=== PATIENT | male | born 1950 | race Caucasian/White ===

== ENCOUNTER 2019-06-24 11:42 | Outpatient (CLI) | payer MEDICARE, SELFPAY ==
--- NOTE | ~2019-06-24 | MR_ITS ---
EXAMINATION: MR brain/brain stem wo con EXAM DATE: 06/24/2019 12:31 INDICATION: Transient ischemic attack. Speech disturbance. Dizziness. TECHNIQUE: Magnetic resonance imaging (MRI) of the brain/brain stem obtained without contrast. Sagitt al T1, axial diffusion, gradient echo (T2*), T1, T2, FLAIR sequences obtained. There is no prior st udy for comparison. Correlation was made with head CT 12/20/2016. FINDINGS: There are no areas of restricted diffusion to suggest acute infarction. There is no acute hemorrhage seen on the T2*, a hemosiderin sensitive sequence. No intraparenchymal brain mass lesion. There is mild periventricular and subcortical T2/FLAIR signal hyperintensity, nonspecific but probab ly related to small vessel ischemic disease (microangiopathy). There is mild prominence of the sulc i and ventricles related to cerebral atrophy. There are no extra-axial collections. Flow voids are seen in the cerebral arteries on the T2-weighted sequences consistent with their expected patency. The orbits are unremarkable. Soft tissue is unremarkable. IMPRESSION: 1. No acute intracranial findings. 2. Chronic age related findings. Reviewed, dictated and finalized at location A.
== END 2019-06-24 11:43 | disposition home or self-care (01) ==
PROVIDERS: PCP Family Medicine; Visit Provider Family Medicine
DX: G45.9 Transient cerebral ischemic attack, unspecified (principal)
CPT/HCPCS: 70551

== ENCOUNTER 2019-07-01 13:50 | Outpatient (CLI) | payer MEDICARE, SELFPAY ==
--- NOTE | ~2019-07-01 | XR_ITS ---
EXAMINATION: XR wrist RT min 3V DATE: 07/01/2019 14:21 INDICATION: Right wrist pain. Fall. TECHNIQUE: 4 views of right wrist were obtained. COMPARISON: None. FINDINGS: Bone alignment is normal. No fracture. There is mild osteoarthritis of first carpometacarpa l joint, second and third metacarpophalangeal joints, and some of the interphalangeal joints. IMPRESSION: 1. Mild polyarticular osteoarthritis. Reviewed, dictated and finalized at location A.
== END 2019-07-01 13:51 | disposition home or self-care (01) ==
PROVIDERS: PCP Family Medicine; Visit Provider Family Medicine
DX: M25.531 Pain in right wrist (principal); M19.031 Primary osteoarthritis, right wrist
CPT/HCPCS: 73110

== ENCOUNTER 2019-08-09 13:48 | Outpatient (CLI) | payer MEDICARE, SELFPAY ==
--- NOTE | ~2019-08-09 | US_ITS ---
EXAMINATION: US carotid duplex BI DATE: 08/09/2019 14:23 INDICATION: Dysarthria. Transient ischemic attack. TECHNIQUE: Grayscale, color Doppler, and pulsed Doppler images of the cervical carotid arteries were obtained. The degree of vessel stenosis is placed in one of the following categories: normal, <50%, 5 0-69%, >=70% but less than near-occlusion, near-occlusion, or total occlusion. Note that percent sten osis relative to normal distal artery lumen diameter is indirectly measured from velocity measurement s as described by Bernabe, et al. Radiology 2003; 229:340-346. COMPARISON: None. FINDINGS: RIGHT: The right common carotid artery (CCA) peak systolic velocity (PSV) is 70 cm/s. The right internal car otid artery (ICA) PSV is 86 cm/s. The right ICA end-diastolic velocity (EDV) is 22 cm/s. The right IC A/CCA PSV ratio is 1.2. Grayscale and color Doppler images yield an estimate of <50% diameter reducti on from plaque in the ICA. There is antegrade flow in the right vertebral artery. LEFT: The left CCA PSV is 87 cm/s. The left ICA PSV is 78 cm/s. The left ICA EDV is 19 cm/s. The left ICA/C CA PSV ratio is 0.9. Grayscale and color Doppler images yield an estimate of <50% diameter reduction from plaque in the ICA. There is antegrade flow in the left vertebral artery. IMPRESSION: 1. <50% stenosis in the right internal carotid artery. 2. <50% stenosis in the left internal carotid artery. Reviewed, dictated and finalized at location A.
== END 2019-08-09 13:49 | disposition home or self-care (01) ==
LOC: ANHIMG 13:48
PROVIDERS: PCP Family Medicine; Visit Provider Internal Medicine Cardiovascular Disease
DX: I65.23 Occlusion and stenosis of bilateral carotid arteries (principal); I25.10 Atherosclerotic heart disease of native coronary artery without angina pectoris; E11.69 Type 2 diabetes mellitus with other specified complication; E78.5 Hyperlipidemia, unspecified; R09.89 Other specified symptoms and signs involving the circulatory and respiratory systems
CPT/HCPCS: 93880

== ENCOUNTER 2020-03-10 10:29 | Outpatient (CLI) | payer MEDICARE, SELFPAY ==
[2020-03-10 11:19] LABS: Anion Gap 5 mmol/L (8-16); Blood Urea Nitrogen 19 mg/dL (9-20); Calcium 9.8 mg/dL (8.4-10.2); Carbon Dioxide 32 mmol/L (22-30); Chloride 100 mmol/L (98-107); Estimated Glomerular Filt Rate > 60; Glucose 105 mg/dL (75-110); Potassium 4.2 mmol/L (3.4-5.0); Sodium 137 mmol/L (137-145)
== END 2020-03-10 10:30 | disposition home or self-care (01) ==
LOC: ANHSURGERY 10:32
PROVIDERS: Anesthesiology; PCP Internal Medicine; Visit Provider Otolaryngology
DX: Z01.818 Encounter for other preprocedural examination (principal); Z79.899 Other long term (current) drug therapy
CPT/HCPCS: 36415; 80048

== ENCOUNTER 2020-03-14 01:42 | Outpatient (CLI) | payer MEDICARE, SELFPAY ==
[2020-03-15 00:20] LABS: SARS-CoV-2 RNA PCR Negative
== END 2020-03-14 01:43 | disposition home or self-care (01) ==
LOC: ANHCOVIDDT 01:42
PROVIDERS: Family Provider Family Medicine; PCP Internal Medicine; Visit Provider Otolaryngology
DX: Z01.812 Encounter for preprocedural laboratory examination (principal); Z20.822 Contact with and (suspected) exposure to COVID-19
CPT/HCPCS: C9803; U0003; U0005

== ENCOUNTER 2020-03-17 00:18 | Day surgery (SDC) | payer MEDICARE, SELFPAY ==
[2020-03-06 13:28] VITALS: BMI 36.0
--- NOTE | 2020-03-16 09:07 | WPDANESEPPF ---
Anes - Initial Pre Proc Eval Procedure: Operation Date: 03/17/20 15:00 Proposed Procedures p Microlaryngoscopy With Biopsy - Reinaldo Delacruz MD Date/Time: 03/16/20 09:07 Surgeon: Reinaldo Delacruz MD Pre Op Diagnosis: Chronic Laryngitis Patient Data Age: 69 Gender: M Height: 1.83 m Weight: 120.45 kg Allergies Allergy/AdvReac Type Severity Reaction Status Date / Time iohexol [From Omnipaque] Allergy Severe Anaphylactic Verified 03/06/20 13:18 Shock lisinopril Allergy Severe Swelling Verified 03/17/20 12:23 of Lip/Tongue/Throat clotrimazole AdvReac Unknown Rash Verified 03/17/20 12:23 niacin AdvReac Unknown Rash Verified 03/17/20 12:23 Home Medications Medication Instructions Recorded Confirmed Type Fiber Supplement 1 cap PO DAILY 01/06/19 03/17/20 History Men's Multivitamin 1 tablet PO DAILY 01/06/19 03/17/20 History cetirizine-pseudoephedrine 1 tablet PO BID 01/06/19 03/17/20 History [Zyrtec-D] coQ10 (ubiquinol) 100 mg PO DAILY 01/06/19 03/17/20 History melatonin 3 mg PO HS PRN 01/06/19 03/17/20 History acetaminophen [Tylenol Extra 1,000 mg PO TID 01/16/19 03/17/20 History Strength] docusate sodium [Stool Softener] 100 mg PO DAILY 01/16/19 03/17/20 History fluticasone 250 mcg-salmeterol 50 1 inh INHALATION BID 02/07/20 03/17/20 History mcg/dose blistr powdr for inhalation gabapentin 800 mg tablet 800 mg PO TID 02/07/20 03/17/20 History isosorbide mononitrate 30 mg 30 mg PO DAILY 02/07/20 03/17/20 History tablet,extended release 24 hr losartan 50 mg tablet 50 mg PO DAILY 02/07/20 03/17/20 History omeprazole 20 mg capsule,delayed 40 mg PO HS cap 02/07/20 03/17/20 History release oxybutynin chloride 10 mg 10 mg PO DAILY 02/07/20 03/17/20 History tablet,extended release 24 hr amlodipine 10 mg tablet 10 mg PO DAILY #90 tablet 02/24/20 03/17/20 Rx hydrochlorothiazide 25 mg tablet 25 mg PO DAILY #90 tablet 02/24/20 03/17/20 Rx metoprolol tartrate 50 mg tablet 50 mg PO BID #180 tablet 02/24/20 03/17/20 Rx trazodone 100 mg tablet 100 mg PO HS #90 tablet 02/24/20 03/17/20 Rx albuterol sulfate [ProAir HFA] 2 puff INHALATION PRN PRN 03/06/20 03/17/20 History aspirin [Aspirin Low Dose] 81 mg PO DAILY 03/06/20 03/17/20 History atorvastatin 40 mg PO DAILY 03/06/20 03/17/20 History Patient hx anesthesia problems: none Family hx anesthesia problems: none PMFSH Past Medical History Medical History Anemia Anxiety Arthritis Asthma BPH (benign prostatic hyperplasia) Bronchitis CAD (coronary artery disease) Cataract COPD (chronic obstructive pulmonary disease) Depression Diverticulitis Fracture vertebrae GERD (gastroesophageal reflux disease) Glaucoma H/O gastroesophageal reflux (GERD) Head and neck cancer History of throat cancer History of tobacco abuse Hyperlipidemia Hypertension 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 Obstructive sleep apnea Osteoarthritis Pneumonia Seasonal allergies Shingles Sleep apnea TIA (transient ischemic attack) Ulcer Surgical History Surgical History H/O blepharoplasty bilateral H/O Spinal surgery neck surgery with cage, lumbar dissection History of biopsy throat History of cataract surgery History of head, eyes, ears, nose, and throat (HEENT) surgery vocal cord surgery History of orthopedic surgery bilateral rotator cuff repair, sacroiliac joint surgery Hx of vasectomy Family History Family History Father Hypertension Family history of chronic obstructive pulmonary disease Family history of coronary artery disease Mother Hypertension Family history of malignant neoplasm of breast in first degree relative Family history of congestive heart failure Sibling Acute myocardial infarction Family history of c
[2020-03-17] VITALS (8 sets, daily range): BP systolic 133–155; BP diastolic 80–92; PULSE 61–71; RESP 13–20; TEMP 36.3–36.7; O2SAT 93–99
--- NOTE | 2020-03-17 06:07 | PM.HPGS ---
History of Present Illness History of Present Illness Consent: Risks, benefits, and alternatives have been discussed and questions answered. Patient agrees to proceed with procedure. 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 Review of Systems Review of Systems: All systems reviewed & are unremarkable except as noted in HPI and below PMFSH Past Medical History Medical History Anemia Anxiety Arthritis Asthma BPH (benign prostatic hyperplasia) Bronchitis CAD (coronary artery disease) Cataract COPD (chronic obstructive pulmonary disease) Depression Diverticulitis Fracture vertebrae GERD (gastroesophageal reflux disease) Glaucoma H/O gastroesophageal reflux (GERD) Head and neck cancer History of throat cancer History of tobacco abuse Hyperlipidemia Hypertension 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 Obstructive sleep apnea Osteoarthritis Pneumonia Seasonal allergies Shingles Sleep apnea TIA (transient ischemic attack) Ulcer Surgical History Surgical History H/O blepharoplasty bilateral H/O Spinal surgery neck surgery with cage, lumbar dissection History of biopsy throat History of cataract surgery History of head, eyes, ears, nose, and throat (HEENT) surgery vocal cord surgery History of orthopedic surgery bilateral rotator cuff repair, sacroiliac joint surgery Hx of vasectomy Family History Family History Father Hypertension Family history of chronic obstructive pulmonary disease Family history of coronary artery disease Mother Hypertension Family history of malignant neoplasm of breast in first degree relative Family history of congestive heart failure Sibling Acute myocardial infarction Family history of cardiac disorder Family history of coronary artery disease Grandparent Cerebrovascular accident Parkinsons Social History Social History Smoking packs per day: 3 Smoking cigarettes per day: 60.0 Years smoked: 20 Smoking pack-years: 60.00 Smoking status: Former smoker Second hand tobacco smoke exposure: No Smoking end date: 02/20/83 Additional smoking assessment comments: QUIT 1983 Alcohol intake: current Drinks per week: 21 Substance use: current Substance use type: does not use and marijuana Other substance usage details: 5MG GUMMIES DAILY Living arrangements: with family Gender identity (if verbalized by the patient): Male Spiritual care concerns: No Meds Home Medications and Allergies Home Medications Medication Instructions Recorded Confirmed Type Fiber Supplement 1 cap PO DAILY 01/06/19 03/06/20 History Men's Multivitamin 1 tablet PO DAILY 01/06/19 03/06/20 History cetirizine-pseudoephedrine 1 tablet PO BID 01/06/19 03/06/20 History [Zyrtec-D] coQ10 (ubiquinol) 100 mg PO DAILY 01/06/19 03/06/20 History melatonin 3 mg PO HS PRN 01/06/19 03/06/20 History acetaminophen [Tylenol Extra 1,000 mg PO TID 01/16/19 03/06/20 History Strength] docusate sodium [Stool Softener] 100 mg PO DAILY 01/16/19 03/06/20 History fluticasone 250 mcg-salmeterol 50 1 inh INHALATION BID 02/07/20 03/06/20 History mcg/dose blistr powdr for inhalation gabapentin 800 mg tablet 800 mg PO TID 02/07/20 03/06/20 History isosorbide mononitrate 30 mg 30 mg PO DAILY 02/07/20 03/06/20 History tablet,extended release 24 hr losartan 50 mg tablet 50 mg PO DAILY 02/07/20 03/06/20 History omeprazole 20 mg capsule,delayed 40 mg PO HS cap 02/07/20 03/06/20 History release oxybutynin chloride 10 mg 10 mg PO DAILY 02/07/20 03/06/20 History
--- NOTE | 2020-03-17 06:08 | WPDHPUPDATE1 ---
History and Physical Update Update Date/Time: 03/17/20 06:08 History and Physical has been reviewed, including an updated exam of the patient. There are NO changes in the patient's condition. Risks, benefits, and alternatives have been discussed and questions answered. Patient agrees to proceed with procedure.
[2020-03-17] MEDS: LACTATED RINGERS 1,000 ML 30 ML IV CONT ×2 (12:25→13:17)
--- NOTE | 2020-03-17 13:19 | PM.PROC ---
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
== END 2020-03-17 14:51 | disposition home or self-care (01) ==
PROVIDERS: Family Provider Family Medicine; PCP Internal Medicine; Visit Provider Otolaryngology
PROC: 0CJS8ZZ Inspection of Larynx, Via Natural or Artificial Opening Endoscopic (ICD-10-PCS; CPT 31536; principal; 2020-03-17 15:00)
DX: J38.3 Other diseases of vocal cords (principal); J37.0 Chronic laryngitis; I10 Essential (primary) hypertension; E78.5 Hyperlipidemia, unspecified; J44.9 Chronic obstructive pulmonary disease, unspecified; I25.10 Atherosclerotic heart disease of native coronary artery without angina pectoris; D64.9 Anemia, unspecified; F41.8 Other specified anxiety disorders; N40.0 Benign prostatic hyperplasia without lower urinary tract symptoms; K21.9 Gastro-esophageal reflux disease without esophagitis; H40.9 Unspecified glaucoma; G47.33 Obstructive sleep apnea (adult) (pediatric); Z86.73 Personal history of transient ischemic attack (TIA), and cerebral infarction without residual deficits; M19.90 Unspecified osteoarthritis, unspecified site; Z85.819 Personal history of malignant neoplasm of unspecified site of lip, oral cavity, and pharynx; Z87.891 Personal history of nicotine dependence; F12.90 Cannabis use, unspecified, uncomplicated; E66.9 Obesity, unspecified; Z68.35 Body mass index [BMI] 35.0-35.9, adult
CPT/HCPCS: 31536; 88305; A9270; J0330; J1100; J2405; J2704; J3010; J7120

== ENCOUNTER 2020-12-30 09:45 | Outpatient (CLI) | payer MEDICARE, SELFPAY ==
--- NOTE | 2021-01-20 11:12 | WPDSLEEPSTUD ---
Sleep Study Date of Study: 12/30/20 <Ivy Mascorro, DO - Last Filed: 01/20/21 12:08> Ordering Provider: Mathieu Peña APRN <Ivy Mascorro, DO - Last Filed: 01/20/21 12:08> Interpreting Physician: Ivy Mascorro DO <Ivy Mascorro DO - Last Filed: 01/20/21 12:08> Sleep Study Type: CPAP Titration <Ivy Mascorro DO - Last Filed: 01/20/21 12:08> Height: 1.83 m <Ivy Mascorro DO - Last Filed: 01/20/21 12:08> Weight: 113.398 kg <Ivy Mascorro DO - Last Filed: 01/20/21 12:08> Body Mass Index: 33.9 <Ivy Mascorro DO - Last Filed: 01/20/21 12:08> Neck Circumference (inches): 19 <Ivy Mascorro DO - Last Filed: 01/20/21 12:08> [place]: 6 <Ivy Mascorro DO - Last Filed: 01/20/21 12:08> Reason for Sleep Study Unrefreshing sleep and daytime hypersomnia despite being compliant with PAP Therapy <Ivy Mascorro, DO - Last Filed: 01/20/21 12:08> Sleep History The patient is a 70 y/o male withAsthma, COPD a, coronary artery disease, anxiety/ depression, GERD, hypertension, hyperlipidemia, history of TIA, and ARINA on PAP that had a Pap titration ordered by the pulmonology group due to unrefreshing sleep and daytime hypersomnia despite being compliant with PAP therapy. The patient is currently on auto PAP 8-18 cm H2O with an average daily use of 9 hours and 21 minutes. The residual AHI is 3.6. The leak is minimal. the patient is at a pressure of 11.4 cm H2O 90% of the time. The patient denies awakening from sleep short of breath. He denies awakening at night with heartburn, belching or cough. He denies snoring loud enough that others complain. He denies having trouble sleeping when he has a cold. He denies waking up gasping for air throughout the night. He denies sweating excessively at night. He denies heart palpitations or irregular heartbeats during the night. He frequently falls asleep during the day. The patient does not drive. The patient denies sleep paralysis, cataplexy and hypnagogic / hypnopompic hallucinations. The patient denies having nightmares. He rarely has thoughts racing through his mind. He denies feeling sad, depressed or anxious. He denies noticing parts of his body jerk. He denies kicking throughout the night. He denies experiencing crawling and aching feelings in his legs. He occasionally has leg pain during the night. He denies grinding his teeth during sleep and awakening with jaw pain in the morning. He is constantly bothered by pain during the day and is occasionally awakened by pain during the night. He occasionally wakes up feeling stiff in the morning. He goes to bed at 10:00 p.m. on both weekdays and weekends. It takes him 10 minutes to fall asleep. He wakes up twice per night. When he awakens, he will just stay in bed until E falls asleep. He wakes up at 8:00 a.m. on both weekdays and weekends. He typically gets 10 hours of sleep per night. He will stay in bed for 5 minutes after awakening in the morning. He currently lives with his . He does not consume any caffeinated beverages within 2 hours of bedtime. He does not engage in physical exercise before bedtime. He will watch television before falling asleep. He does not take naps in the afternoon or the evening. He quit smoking 30 years ago. He drinks 4 cups of coffee in the morning every day. He drinks 2 alcoholic beverages per week. He denies recreational drug use. <Ivy Mascorro DO - Last Filed: 01/20/21 12:08> [facility] Past Medical History Medical History: Medical History Anemia Anxiety Arthritis Asthma BPH (benign prostatic hyperplasia) Bronchitis CAD (coronary artery disease) Cataract COPD (chronic obstructive pulmonary disease) Depression Diverticulitis Fracture vertebrae GERD (gastroesophageal reflux disease) Glaucoma H/O gastroes
[2021-01-20 11:17] VITALS: BMI 33.9
== END 2020-12-31 08:25 | disposition home or self-care (01) ==
LOC: ANHCSM 09:46
PROVIDERS: PCP Physician Assistant; Visit Provider Nurse Practitioner Family
DX: G47.33 Obstructive sleep apnea (adult) (pediatric) (principal)
CPT/HCPCS: 95811

== ENCOUNTER 2022-07-23 22:32 | Inpatient (IN) | payer MEDICARE, SELFPAY ==
--- NOTE | ~2022-07-23 | MR_ITS ---
MRI of the cervical spine Clinical History: Dizziness, weakness Technique: Axial T2-weighted and gradient images, and sagittal T1-weighted, T2-weighted, and STIR marissa ges were acquired. Findings: There is no fracture or subluxation of the cervical spine. There is anterior fusion from C6 to C7, with associated interbody fusion device. No suspicious bone marrow signal abnormality seen. At C2-C3, there is mild degenerative disc narrowing. No disc bulge or herniation. Probable minimal le ft neural foraminal narrowing. Right neural foramen preserved. There is mild facet arthropathy. At C3-C4, there is moderate to advanced degenerative disc narrowing. There is minimal disc osteophyte complex. There is no spinal canal stenosis or cord compression. There is mild facet arthropathy, lef t worse than right, with mild bilateral neural foraminal narrowing, left worse than right. At C4-C5, there is no disc bulge or herniation. No spinal canal stenosis, cord compression, or defini te neural foraminal narrowing. At C5-C6, there is advanced degenerative disc narrowing with minimal disc bulge. There is no spinal c anal stenosis or cord compression. Probable mild left neural foraminal narrowing. Right neural forame n preserved. At C6-C7, there is no disc bulge or herniation. No spinal canal stenosis or cord compression. There i s probable preservation of the bilateral neural foramina. No abnormal signal seen in the spinal cord. Paravertebral soft tissues are unremarkable. Impression: Anterior fusion at C6-C7. Mild degenerative spondylitic changes, as above. Reviewed, dictated and finalized at [facility]. Impression: Anterior fusion at C6-C7. Mild degenerative spondylitic changes, as above.
--- NOTE | ~2022-07-23 | XR_ITS ---
XR chest 1V portable DATE: 07/24/2022 08:58 INDICATION: Shortness of breath TECHNIQUE: Portable upright AP view on 07/2022 at 0848 hours COMPARISON: 12/20/2016 portable AP chest at 0816 hours FINDINGS: There is chronic discoid atelectasis or scarring at the lung bases with little interval marybel nge since 12/20/2016. The lungs otherwise are clear. Heart size appears within normal range. There is aortic calcification and mild unfolding. No hilar or mediastinal enlargement. There is old pulmonary granulomatous disease with calcified left hilar and aortopulmonary window node s, calcified pulmonary granuloma. No pleural effusion or pulmonary vascular congestion or pneumothora x. IMPRESSION: Chronic mild discoid atelectasis and/or scarring at the lung bases Reviewed, dictated and finalized at location A.
--- NOTE | ~2022-07-23 | MR_ITS ---
EXAMINATION: MRA brain wo con DATE: 07/25/2022 13:24 INDICATION: Dizziness. Transient ischemic attack. TECHNIQUE: Magnetic resonance angiography (MRA) of the brain was performed without intravenous contra st with T1-weighted SPGR by the 3D [id number] technique. Maximum intensity projection 3D-reconstr uctions were obtained. COMPARISON: Brain MRI 07/24/2022 FINDINGS: Right vertebral artery is dominant. There is no significant stenosis of basilar artery or the posteri or cerebral arteries. There is no significant stenosis of the intracranial internal carotid arteries or anterior or middle cerebral arteries. Right A1 anterior cerebral artery segment is small, a normal variant. Anterior communicating artery is normal. Left posterior communicating artery is normal. A r ight posterior communicating artery is not identified. There is no aneurysm. IMPRESSION: 1. No aneurysm or significant intracranial arterial stenosis. Reviewed, dictated and finalized at location A.
--- NOTE | ~2022-07-23 | US_ITS ---
Procedure: Duplex Doppler examination of the bilateral carotids. Indication: Dizziness Technique: Real time, color-flow and pulse wave Doppler examination of the bilateral carotids was performed. Findings: Mckee scale ultrasonography of the right neck demonstrated no significant plaque. There was demonstrat ion of normal color-flow and Doppler waveforms within the right common, internal and external carotid arteries. The peak systolic velocities in the right common, internal and external carotid arteries w ere demonstrated to be 65 cm/sec, 73 cm/sec and 61 cm/sec respectively. The right ICA/CCA ratio was 1 .1.The proximal right internal carotid artery demonstrates 0% stenosis relative to the normal distal artery lumen diameter. Mckee scale sonography of the left neck demonstrated tiny calcified plaques of the distal left common carotid artery. There was demonstration of normal color-flow and wave forms within the left common, i nternal and external carotid arteries. The peak systolic velocities in the left common, internal and external carotid arteries were demonstrated to be 67cm/sec, 76 cm/sec and 79 cm/sec respectively. The left ICA/CCA ratio was 1.1. The proximal left internal carotid artery demonstrates 0% stenosis relat teddy to the normal distal artery lumen diameter. There was antegrade flow demonstrated in the bilateral vertebral arteries. Impression: No hemodynamically significant stenosis of the bilateral internal carotid arteries. Antegrade flow in the bilateral vertebral arteries. Note: The methodology used is an indirect measurement validated against a direct method (such as the NASCET criteria) that compares diameters at the stenosis to the distal ICA. Reviewed, dictated and finalized at location . Impression: No hemodynamically significant stenosis of the bilateral internal carotid arter ies. Antegrade flow in the bilateral vertebral arteries. Note: The methodology used is an indirect measurement validated against a direct meth od (such as the NASCET criteria) that compares diameters at the stenosis to the distal ICA.
--- NOTE | ~2022-07-23 | CT_ITS ---
EXAMINATION: CT brain wo con DATE: 07/24/2022 00:06 INDICATION: Dizziness, confusion TECHNIQUE: Computed tomography (CT) of the head was performed without intravenous contrast. The mA wa s adjusted according to patient size. Iterative reconstruction technique was employed. Exam dose: 60 5.33 mGy-cm total exam DLP. COMPARISON: 06/2019 MRI brain/brainstem 12/20/2016 CT brain FINDINGS: Bilateral vertebral artery and carotid siphon internal carotid artery calcifications. There is nonspecific diminished attenuation cerebral white matter, likely due to chronic small vessel isch emic changes. No intracranial mass lesion or hemorrhage, midline shift or mass effect is evident. There is moderate central and cortical cerebral and cerebellar atrophy. No subdural or epidural hemat franklin is detected. Included mastoid air cells and paranasal sinuses are normally developed and aerated. IMPRESSION: Cerebral atherosclerosis and chronic small vessel ischemic changes of the cerebral white matter No acute intracranial finding Reviewed, dictated and finalized at [facility]. Reviewed, dictated and finalized at location [facility].
--- NOTE | ~2022-07-23 | MR_ITS ---
MRI of the brain Clinical History: TIA Technique: Axial and sagittal T1-weighted images were acquired. These were followed by axial T2-weigh yue, diffusion weighted, gradient, and FLAIR images. Following intravenous administration of 20 cc Mu ltiHance gadolinium, T1-weighted fat-sat imaging was performed in the axial and coronal planes. COMPARISON: 06/24/2019 Findings: There is no acute infarct, intracranial hemorrhage, or mass lesion. There are mild chronic white matter changes in the periventricular white matter bilaterally. Ventricles and subarachnoid spaces are unremarkable. Orbits are unremarkable. Paranasal sinuses and m astoid air cells are clear. Major flow voids are intact. Sagittal midline structures are intact. No abnormal postcontrast enhancement identified. IMPRESSION: No acute abnormality. Minimal chronic microvascular ischemic changes. Reviewed, dictated and finalized at location .
--- NOTE | ~2022-07-23 | MR_ITS ---
EXAMINATION: MR brain/brain stem wo con DATE: 07/25/2022 13:24 INDICATION: Dizziness. Transient ischemic attack. TECHNIQUE: Magnetic resonance imaging (MRI) of the brain and brainstem was performed without intraven ous contrast. COMPARISON: Brain MRI 07/24/2022, head CT 07/23/2022 FINDINGS: There are scattered areas of nonspecific increased T2-weighted signal intensity in the cere bral white matter. There is no intracranial hemorrhage, acute infarction, or abnormal intracranial ma ss lesion. The ventricles are normal in size. There is mild mucosal thickening in the ethmoid sinuses . There are likely changes of ocular lens replacement surgeries. The mastoid air cells are normal. IMPRESSION: 1. Mild nonspecific cerebral white matter disease, which likely represents chronic small vessel ische deidra disease. Reviewed, dictated and finalized at location [facility]. IMPRESSION: 1. Mild nonspecific cerebral white matter disease, which likely represents rn chronic eliud small vessel ischemic disease.
[2022-07-23 22:38] VITALS: BP 185/108; PULSE 86; RESP 19; O2SAT 91
[2022-07-23 22:46] VITALS: BP 177/93; PULSE 82; RESP 15; O2SAT 92
[2022-07-23 23:16] VITALS: BP 170/107; PULSE 83; RESP 21; O2SAT 94
--- NOTE | 2022-07-23 23:18 | ECG_ITS ---
Measurements Intervals [place] Rate: 79 P: 13 MI: 187 QRS: -16 QRSD: 114 T: 71 QT: 400 QTc: 461 Interpretive Statements SINUS RHYTHM NONSPECIFIC T-WAVE ABNORMALITY COMPARED TO ECG 01/24/2019 10:45:02 NO SIGNIFICANT CHANGES Electronically Signed On 07-24-2022 12:16:20 CDT by Esteban Andrade M.D.
[2022-07-24] VITALS (20 sets, daily range): BP systolic 126–164; BP diastolic 71–101; PULSE 64–89; RESP 15–20; TEMP 36.1–37.5; O2SAT 91–98; BMI 38.9
[2022-07-24 00:08] LABS: Basophils Absolute Auto 0.1 K/mm3 (0.0-0.1); Basophils Percent Auto 0.9 % (0.2-1.2); Eosinophils Percent Auto 0.2 % (0-4.4); Hematocrit 44.2 % (42.0-52.0); Hemoglobin 14.9 g/dL (14.0-18.0); Immature Granulocyte Absolute 0.03 K/mm3 (0.00-0.031); Immature Granulocyte Percent A 0.5 % (0-0.5); Lymphocytes Absolute Auto 0.96 K/mm3 (0.9-3.2); Lymphocytes Percent Auto 16.3 % (18.3-44.2); Mean Corpuscular HGB Conc 33.7 g/dl (32-36); Mean Corpuscular Volume 91.9 fl (80-100); Mean Platelet Volume 10.1 fl (7.4-10.4); Monocytes Absolute Auto 0.5 K/mm3 (0.1-0.6); Monocytes Percent Auto 8.8 % (2.6-8.5); Neutrophils Absolute Auto 4.3 K/mm3 (1.3-6.7); Neutrophils Percent Auto 73.3 % (45.5-73.1); Platelet Count Result 261 k/mm3 (150-375); Red Blood Count 4.81 M/mm3 (4.6-6.20); Red Cell Distribution Width 13.2 % (11.5-14.5); White Blood Count 5.9 K/mm3 (4.5-10.0)
[2022-07-24] MEDS: SODIUM CHLORIDE 0.9% IV 1,000 ML 999 ML IV CONT (00:09)
--- NOTE | 2022-07-24 00:18 | ED.GENADULT ---
HPI - General Adult General Chief complaint: Dizziness Stated complaint: dizzy Time Seen by Provider: 07/23/22 23:04 Related Data Home Medications Medication Instructions Recorded Confirmed Fiber Supplement 1 cap PO DAILY 01/06/19 05/25/22 coQ10 (ubiquinol) 200 mg capsule 100 mg PO DAILY 01/06/19 05/25/22 melatonin 3 mg tablet 3 mg PO HS PRN Sleep 01/06/19 05/25/22 lkriharu-jkbnttmd-ugoyy acid 400 1 tablet PO DAILY 01/06/19 05/25/22 mcg-vit K 20 mcg-lycop 300 mcg tablet (Men's Multivitamin) docusate sodium 100 mg capsule 100 mg PO DAILY 01/16/19 05/25/22 (Stool Softener) losartan 50 mg tablet 50 mg PO DAILY 02/07/20 05/25/22 albuterol sulfate 90 mcg/actuation 2 puff inhalation PRN PRN Wheezing 03/06/20 05/25/22 aerosol inhaler (ProAir HFA) aspirin 81 mg tablet,delayed 81 mg PO DAILY 03/06/20 05/25/22 release (Ginny Low Dose Aspirin) atorvastatin 40 mg tablet 80 mg PO DAILY 08/12/20 05/25/22 cyclosporine 0.05 % eye drops 1 drp EACH EYE Q12H 07/12/21 05/25/22 (Restasis MultiDose) cyclosporine 0.05 % eye drops in a 1 drp EACH EYE Q12H 01/26/22 05/25/22 dropperette (Restasis) isosorbide mononitrate 30 mg 30 mg PO DAILY 01/26/22 05/25/22 tablet,extended release 24 hr Allergies Allergy/AdvReac Type Severity Reaction Status Date / Time iohexol [From Omnipaque] Allergy Severe Anaphylactic Verified 07/24/22 00:01 Shock lisinopril Allergy Severe Swelling Verified 07/24/22 00:01 of Lip/Tongue/Throat clotrimazole AdvReac Unknown Rash Verified 07/24/22 00:01 niacin AdvReac Unknown Rash Verified 07/24/22 00:01 [facility] Past Medical History Medical History Anemia Anxiety Arthritis Asthma BPH (benign prostatic hyperplasia) Bronchitis CAD (coronary artery disease) Cataract COPD (chronic obstructive pulmonary disease) Depression Diverticulitis Fracture vertebrae GERD (gastroesophageal reflux disease) Glaucoma H/O gastroesophageal reflux (GERD) Head and neck cancer History of throat cancer History of tobacco abuse Hyperlipidemia Hypertension 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 Obstructive sleep apnea Osteoarthritis Pneumonia Seasonal allergies Shingles Sleep apnea TIA (transient ischemic attack) Ulcer Surgical History Surgical History H/O blepharoplasty bilateral H/O Spinal surgery neck surgery with cage, lumbar dissection History of biopsy throat History of cataract surgery History of head, eyes, ears, nose, and throat (HEENT) surgery vocal cord surgery History of orthopedic surgery bilateral rotator cuff repair, sacroiliac joint surgery Hx of vasectomy Family History Family History Father Hypertension Family history of chronic obstructive pulmonary disease Family history of coronary artery disease Mother Hypertension Family history of malignant neoplasm of breast in first degree relative Family history of congestive heart failure Sibling Acute myocardial infarction Family history of cardiac disorder Family history of coronary artery disease Grandparent Cerebrovascular accident Parkinsons Social History Social History Smoking packs per day: 3 Smoking cigarettes per day: 60.0 Years smoked: 20 Smoking pack-years: 60.00 Smoking status: Former smoker Second hand tobacco smoke exposure: No Smoking end date: 02/20/83 Additional smoking assessment comments: QUIT 1983 Alcohol intake: current Drinks per week: 21 Substance use: current Substance use type: does not use and marijuana Other substance usage details: 5MG GUMMIES DAILY Lack of Transportation: No Lack of Food: Never True Current Housing: I Have Housing Concerned About Future Housing: No Difficu
[2022-07-24 00:21] LABS: INR 0.9; Prothrombin Time 12.4 Seconds (11.1-14.7)
[2022-07-24 00:22] LABS: Partial Thromboplastin Time 27.7 SECONDS (22.3-36.8)
[2022-07-24 00:28] LABS: Alanine Aminotransferase 81 U/L (6-50); Albumin Level 4.8 g/dL (3.5-5.1); Alkaline Phosphatase 54 U/L (38-126); Anion Gap 7 mmol/L (8-16); Aspartate Amino Transferase 54 U/L (17-59); Bilirubin,Total 0.7 mg/dL (0.2-1.3); Blood Urea Nitrogen 23 mg/dL (9-20); Calcium 10.1 mg/dL (8.4-10.2); Carbon Dioxide 29 mmol/L (22-30); Chloride 100 mmol/L (98-107); Estimated Glomerular Filt Rate 60; Glucose 122 mg/dL (65-110); Magnesium 1.7 mg/dL (1.6-2.3); Potassium 3.8 mmol/L (3.4-5.0); Sodium 136 mmol/L (137-145)
[2022-07-24 00:39] LABS: Troponin I < 0.012 ng/mL (0.000-0.034)
[2022-07-24 01:21] LABS: Bacteria Urine None Seen /hpf; Non Pathogenic Casts 0-2; RBC Urine 0-2 /hpf (0-2); Squamous Epithelial Cell Urine None seen /hpf (Few); WBC Urine 0-5 /hpf
--- NOTE | 2022-07-24 01:32 | PM.IMHP ---
H&P: HPI History of Present Illness Date/Time: 07/24/22 01:32 Chief Complaint: Dizziness Narrative: This is a 71-year-old male with past medical history significant for hypertension, left-sided a functional hemiparesis, obesity, COPD, coronary artery disease, GERD. Patient was brought to the emergency room due to episode of vertigo, unstable gait, confusion. This started at around 2:00 p.m. the patient had been out in his house to change the battery of a camera and had been up in a ladder when the symptoms started. Patient had been in his usual state of health up until this point. XR chest 1V portable DATE: 07/24/2022 08:58 INDICATION: Shortness of breath? TECHNIQUE: Portable upright AP view on 07/2022 at 0848 hours? COMPARISON: 12/20/2016 portable AP chest at 0816 hours? FINDINGS: There is chronic discoid atelectasis or scarring at the lung bases with little interval change since 12/20/2016. The lungs otherwise are clear. Heart size appears within normal range. There is aortic calcification and mild unfolding. No hilar or mediastinal enlargement. There is old pulmonary granulomatous disease with calcified left hilar and aortopulmonary window nodes, calcified pulmonary granuloma. No pleural effusion or pulmonary vascular congestion or pneumothorax.? IMPRESSION: Chronic mild discoid atelectasis and/or scarring at the lung bases? EXAMINATION: CT brain wo con DATE: 07/24/2022 00:06 INDICATION: Dizziness, confusion TECHNIQUE: Computed tomography (CT) of the head was performed without intravenous contrast. The mA was adjusted according to patient size. Iterative reconstruction technique was employed. Exam dose:? 605.33 mGy-cm total exam DLP.? COMPARISON: 06/2019 MRI brain/brainstem 12/20/2016 CT brain FINDINGS: Bilateral vertebral artery and carotid siphon internal carotid artery calcifications. There is nonspecific diminished attenuation cerebral white matter, likely due to chronic small vessel ischemic changes. No intracranial mass lesion or hemorrhage, midline shift or mass effect is evident. There is moderate central and cortical cerebral and cerebellar atrophy. No subdural or epidural hematoma is detected. Included mastoid air cells and paranasal sinuses are normally developed and aerated. IMPRESSION:? Cerebral atherosclerosis and chronic small vessel ischemic changes of the cerebral white matter No acute intracranial finding Review of Systems Review of Systems: Vertigo, unsteady gait, confusion. Constitutional: Constitutional: Denies chills, Denies fatigue, Denies fever(s), Denies frequent falls, Denies malaise, Denies night sweats and Denies weakness Eyes: Eyes: Denies blurry vision, Denies change in vision, Denies floaters and Denies spots in vision ENT: Denies dysphagia, Reports vertigo, Reports dizziness, Denies odynophagia and Reports disequilibrium Cardiovascular: Cardiovascular: Denies chest pain, Denies radiating jaw, neck or arm pain and Denies palpitations Respiratory: Respiratory: Denies chest congestion and Denies excessive phlegm production Gastrointestinal: Gastrointestinal: Denies abdominal pain, Denies dyspepsia, Denies heartburn, Denies diarrhea, Denies nausea and Denies vomiting Genitourinary: Genitourinary: Denies dysuria and Denies flank pain Musculoskeletal: Musculoskeletal: Denies back pain, Denies myalgias and Reports muscle weakness (Left-sided) Integumentary/Breasts: Skin/Breast: Denies rash Neurologic: Denies Neuro-related abnormal movements, Denies Abnormal speech present, Reports abnormal gait, Reports confusion, Reports vertigo, Reports dizziness, Denies frequent falls, Reports focal weakness (Left-sided) and Reports disequilibrium Psychiatric: Psychiatric: Reports no additional psychiatric complaints and Reports as per HPI Endocrine: Endocrine: Denies cold intolerance, Denies flushing, Denies heat intolerance, Denies polyphagia, Denies polydipsia and Denies palpitations Hemat
[2022-07-24 01:39] LABS: Appearance Urine Clear (Clear); Bilirubin Urine Negative (Negative); Blood Urine Negative (Negative); Color Urine Yellow (Yellow); Glucose Urine UA Negative (Negative); Ketones Urine Negative (Negative); Leukocyte Esterase Ur Negative LEU/UL (Negative); Nitrate Urine Negative (Negative); Protein Urine 2+ mg/dL (Negative); Specific Grav Ur 1.015 (1.001-1.035); Urobilinogen Urine 0.2 mg/dL (<2.0); pH Urine 5.5 (5.0-9.0)
[2022-07-24 01:40] LABS: Add Urine Microscopic? YES
--- NOTE | 2022-07-24 08:24 | ECG_ITS ---
Measurements Intervals [place] Rate: 64 P: 44 PA: 191 QRS: -18 QRSD: 119 T: 106 QT: 347 QTc: 360 Interpretive Statements SINUS RHYTHM NONSPECIFIC T-WAVE ABNORMALITY COMPARED TO ECG 07/23/2022 23:34:31 NO SIGNIFICANT CHANGES Electronically Signed On 07-24-2022 12:18:02 CDT by Esteban Andrade M.D.
--- NOTE | 2022-07-24 08:32 | PM.IMPN ---
Progress Note: A&P Assessment and Plan (1) Vertigo: Code(s): R42 - Dizziness and giddiness Status: Acute Assessment and Plan: Patient presented to the ED with c/o dizziness and gait disturbance. H/O TIA CT of head with no acute stroke Brain MRI pending Carotid US pending Echo with bubble study ordered neuro Q4 hours Neurology consulted. Continue ASA 81 mg daily. Lipid panel- LDL 125, HDL 42, triglycerides 269. On Lipitor 80 mg. TSH within normal limits Vitamin B12 and folate within normal limits PT/OT evaluation (2) Gait disturbance: Code(s): R26.9 - Unspecified abnormalities of gait and mobility Status: Acute Assessment and Plan: Patient uses a cane as an aide when ambulating Chronic left-sided hemiparesis PT/OT evaluation Fall precautions (3) GERD (gastroesophageal reflux disease): Qualifiers: Esophagitis presence: esophagitis presence not specified Qualified Code(s): K21.9 - Gastro-esophageal reflux disease without esophagitis Code(s): K21.9 - Gastro-esophageal reflux disease without esophagitis Status: Chronic Assessment and Plan: Acute exacerbation. +Epigastric pain and chest pain on exam today. GI cocktail x1 with improvement Protonix PO BID (4) Obesity (BMI 30-39.9): Code(s): E66.9 - Obesity, unspecified Status: Chronic Assessment and Plan: Lifestyle modifications (5) COPD (chronic obstructive pulmonary disease): Qualifiers: COPD type: unspecified COPD Qualified Code(s): J44.9 - Chronic obstructive pulmonary disease, unspecified Code(s): J44.9 - Chronic obstructive pulmonary disease, unspecified Status: Chronic Assessment and Plan: Chronic, not in acute exacerbation Continue Advair and PRN albuterol for SOB (6) History of tobacco abuse: Code(s): Z87.891 - Personal history of nicotine dependence Status: Chronic Assessment and Plan: Former smoker. 60 pack-year history. Quit 1983 (7) Obstructive sleep apnea: Code(s): G47.33 - Obstructive sleep apnea (adult) (pediatric) Status: Chronic Assessment and Plan: Continue HS CPAP at home settings or autotitrate. (8) Uncontrolled hypertension: Code(s): I10 - Essential (primary) hypertension Status: Chronic Assessment and Plan: Chronic, BP 146/84 to 157/89. continue home doses amlodipine, HCTZ, Imdur, Losartan, and metoprolol Adjust medications as needed for goal <130/80 Plan CODE STATUS: FULL CODE Discharge disposition: patient is from home. Estimated LOS: possible discharge in am if diagnostics negative and hemodynamically stable. Time Spent With Patient Time: Plan of care, imaging, labs reviewed and all questions answered. Time with patient: 25 - 35 minutes Subjective Date/time seen: 07/24/22 08:32 Interval history: At approximately 0815, I was notified by nursing patient was having chest pain. BP 157/80, HR 71, RR 18, spO2 95% RA, Temp 99.5F. Patient found sitting up in bed awake, speech clear but slow and patient is answering questions appropriately. He is unsure of when the pain started, but endorses it was this morning. The pain is substernal, aching, nonradiating and not reproducible. No diaphoresis. He has some nausea, no emesis, and some shortness of breath. No cough. He endorses h/o GERD. Telemetry shows SR without ectopy. Epigastric tenderness noted on exam. EKG, labs, CXR, and GI cocktail ordered stat. Holding nitroglycerin d/t concern for TIA symptoms and avoidance of hypotension/hypoperfusion. Patient reassessed this afternoon and chest pain resolved after GI cocktail. He denies new complaints. His dizziness is improved. He reports dizziness before felt like he was spinning. He had LUE and LLE weakness at baseline that is unchanged. No vision changes, AZEVEDO, slurred speech, facial paresthesia, facial droop. Patient is forgetful at
--- NOTE | 2022-07-24 09:08 | PC.NURSE ---
Spoke to pharmacist Modesta regarding GI cocktail. Each medication was sent up in individual packaging. Clarifying if it needed to be reconstituted prior to giving to patient, if so, by the guidance of special agent in charge, pharmacy is to mix it. Pharmacist stated to give patient medication individually at the same time and this is how it is typically given.
[2022-07-24] MEDS: BELLADONNA ALK/PHENOB ELIX 10 ML, MAG HYDROX/ALUMINUM HYD/SIMETH 30 ML, LIDOCAINE HCL 2... PO (09:11)
[2022-07-24 09:18] LABS: NT Pro B Type Natriuretic Pept < 20 pg/mL (19.9-100)
[2022-07-24 09:21] LABS: Troponin I < 0.012 ng/mL (0.000-0.034)
[2022-07-24] MEDS: amLODIPine BESYLATE 5 MG TABLET 10 MG PO (10:36)
[2022-07-24] MEDS: ASPIRIN 81 MG ENTERIC TABLET PO (10:36)
[2022-07-24] MEDS: BACLOFEN 5 MG TABLET PO ×3 (10:37→17:21)
[2022-07-24] MEDS: ATORVASTATIN 40 MG TABLET 80 MG PO (10:37)
[2022-07-24] MEDS: cycloSPORINE 0.4 ML OPHTH SOLUTION 1 DROP EACH EYE ×2 (10:38→20:18)
[2022-07-24] MEDS: GABAPENTIN 300 MG CAPSULE 900 MG PO ×3 (10:38→17:21)
[2022-07-24] MEDS: DOCUSATE SODIUM 100 MG CAPSULE PO (10:38)
[2022-07-24] MEDS: METOPROLOL TARTRATE 50 MG TAB PO ×2 (10:39→17:21)
[2022-07-24] MEDS: hydroCHLOROthiazide 25 MG TABLET BY MOUTH (10:39)
[2022-07-24] MEDS: ISOSORBIDE MONONITRATE 30 MG TAB.ER.24H PO (10:39)
[2022-07-24] MEDS: LOSARTAN POTASSIUM 50 MG TABLET PO (10:39)
[2022-07-24] MEDS: THERAPEUTIC MULTIVITAMINS/MINERALS TAB (*BKC) 1 TABLET PO (10:40)
[2022-07-24] MEDS: oxyBUTYnin CHLORIDE XL 5 MG TAB.ER.24 10 MG PO (10:40)
--- NOTE | 2022-07-24 11:36 | WPDNEURCNPN ---
Assessment and Plan Assessment and plan (1) Gait disturbance: Code(s): R26.9 - Unspecified abnormalities of gait and mobility Status: Acute (2) Left-sided weakness: Code(s): R53.1 - Weakness Status: Acute Plan 1. Left upper extremity with drift against gravity with history of neck surgery in the past and negative MRI as per the most likely related to cervical spinal deficit will wait for the MRI of the brain to make sure he did not have any new stroke and if necessary will obtain the MRI of cervical spine otherwise, we will need the EMG nerve conduction study as an outpatient also will discussed with the family. Consult date: 07/24/22 HPI: Daryl Hay is a 71 year old male Admitted to the hospital through the emergency room for the complaints of dizziness. At the time of admission reportedly patient was taking multiple medication particularly including losartan 50 mg daily aspirin 81 mg daily atorvastatin 40 mg daily and isosorbide 30 mg tablet daily, allergic to medication particularly lisinopril and has ongoing history of benign prostatic hypertrophy, coronary artery disease, COPD, depression, has undergone spinal surgery the past on the neck with cage, is a former smoker stopped smoking on February 20, 1983 current alcohol intake or 21 drinks per week initial vital signs were normal except blood pressure 185/108 CBC was normal, routine lab was normal, further evaluation included CT of the head with no space-occupying lesion MRI of the head is pending MRI of the head is pending and last Doppler study in 2019 was negative [facility] Past Medical History Medical History (Updated 07/24/22 @ 11:44 by Corey Moore MD) Anemia Anxiety Arthritis Asthma BPH (benign prostatic hyperplasia) Bronchitis CAD (coronary artery disease) Cataract COPD (chronic obstructive pulmonary disease) Depression Diverticulitis Fracture vertebrae GERD (gastroesophageal reflux disease) Glaucoma H/O gastroesophageal reflux (GERD) Head and neck cancer History of throat cancer History of tobacco abuse Hyperlipidemia Hypertension 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 Obstructive sleep apnea Osteoarthritis Pneumonia Seasonal allergies Shingles Sleep apnea TIA (transient ischemic attack) Ulcer Surgical History Surgical History H/O blepharoplasty bilateral H/O Spinal surgery neck surgery with cage, lumbar dissection History of biopsy throat History of cataract surgery History of head, eyes, ears, nose, and throat (HEENT) surgery vocal cord surgery History of orthopedic surgery bilateral rotator cuff repair, sacroiliac joint surgery Hx of vasectomy Family History Family History Father Hypertension Family history of chronic obstructive pulmonary disease Family history of coronary artery disease Mother Hypertension Family history of malignant neoplasm of breast in first degree relative Family history of congestive heart failure Sibling Acute myocardial infarction Family history of cardiac disorder Family history of coronary artery disease Grandparent Cerebrovascular accident Parkinsons Social History Social History Smoking packs per day: 3 Smoking cigarettes per day: 60.0 Years smoked: 20 Smoking pack-years: 60.00 Smoking status: Former smoker Tobacco type: cigarettes Second hand tobacco smoke exposure: No Smoking end date: 02/20/83 Additional smoking assessment comments: QUIT 1983 Alcohol intake: current Drinks per week: 3 Substance use: current Substance use type: marijuana Other substance usage details: marijuana gummy for sleep at night Last use: 07/22/22 Lack of Transportation: No Lack of Food: Never True Current Housing: I Have Housing Co
[2022-07-24 11:41] LABS: Cholesterol 208 mg/dL (0-200); HDL Direct 42 mg/dL; Triglycerides 269 mg/dL (<150)
[2022-07-24 11:52] LABS: LDL Cholesterol Direct 125 mg/dL
[2022-07-24 11:54] LABS: Hemoglobin A1C 6.1 % (<5.7)
[2022-07-24 12:39] LABS: Troponin I < 0.012 ng/mL (0.000-0.034)
[2022-07-24 12:50] LABS: Folic Acid 16.5 ng/mL (2.76->20)
--- NOTE | 2022-07-24 18:53 | PC.NURSE ---
to bring Non-Formulary Fenofibrate in AM.
[2022-07-24] MEDS: PANTOPRAZOLE 40 MG TABLET PO (20:18)
[2022-07-24] MEDS: NORTRIPTYLINE HCL 25 MG CAPSULE 50 MG BY MOUTH (20:18)
[2022-07-24] MEDS: traZODone HCL 50 MG TABLET 100 MG PO (20:18)
[2022-07-25] VITALS (17 sets, daily range): BP systolic 138–177; BP diastolic 82–96; PULSE 69–102; RESP 14–18; TEMP 36.2–36.8; O2SAT 91–96
--- NOTE | 2022-07-25 | ECHO_ITS ---
Patient Info Name: Daryl Hay Age: 71 years : 1950 Gender: Male Ht: 72 in Wt: 287 lbs BSA: 2.62 m2 HR: 76 bpm BP: 151 / 92 mmHg Technical Quality: Fair Exam Date: 07/25/2022 3:16 PM Exam Location: [facility] Pulmonary Exam Room: 240 Patient Status: Inpatient Admit Date: 07/25/2022 Staff Ordering Physician: Estela Bullard APRN Huc Ob: Tatiana Fuller RDCS Attending Provider: Ceasar Walker MD Referring Physician: Aleah LINDA; Exam Type: CA echo dop bubble study w con Study Info Indications - tia symptoms Complete two-dimentional, color flow and Doppler transthoracic echocardiogram is performed with agitated saline and with contrast to opacify the left ventricle and to improve the delineation of the left ventricle endocardial borders. Contrast/Agitated Saline Contrast/Ag. Saline: Agitated Saline Amount: 20.00 ml Existing IV Access: Yes IV Access Condition: patent with no signs of infiltration Summary 1. Left ventricular chamber dimension is normal. 2. Left ventricular systolic function is hyperdynamic, estimated at >70%. 3. There is mildly increased left ventricular wall thickness. 4. The left ventricular diastolic function is grade I diastolic dysfunction. 5. Right ventricular systolic function is normal. 6. Intact interatrial septum visualized by color flow and agitated saline imaging. Negative bubble study. 7. No significant valvular disease. Left Ventricle Left ventricular chamber dimension is normal. Left ventricular systolic function is hyperdynamic, estimated at >70%. There is mildly increased left ventricular wall thickness. The left ventricular diastolic function is grade I diastolic dysfunction. Right Ventricle Right ventricular chamber dimension is normal. Right ventricular systolic function is normal. Left Atria Left atrial chamber dimension is normal. Right Atria Right atrial chamber dimension is normal. Atrial Septum Intact interatrial septum visualized by color flow and agitated saline imaging. Negative bubble study. Aortic Valve The aortic valve is trileaflet. There is no aortic valve stenosis. There is no aortic valve regurgitation. There is mild aortic valve calcification. Pulmonic Valve The pulmonic valve is not well visualized. Mitral Valve The mitral valve has thickened leaflets. There is trace mitral valve regurgitation. The mitral valve annulus is mildly calcified. Tricuspid Valve There is trace tricuspid valve regurgitation. Pericardium/Pleural There is trivial anterior pericardial effusion. Inferior Vena Cava Inferior vena cava is not well visualized. Aorta The aortic root size at the sinus of Valsalva is normal. Left Ventricular Outflow Tract Name Value Normal LVOT 2D LVOT Diameter 2.1 cm LVOT Doppler LVOT Peak Gradient 5 mmHg LVOT Mean Gradient 3 mmHg LVOT VTI 20 cm LVOT VTI/AV VTI Ratio 0.9 LVOT Stroke Volume 68 ml LVOT CO 16.5 l/min LVOT CI 6.3
[2022-07-25 06:02] LABS: Hematocrit 45.4 % (42.0-52.0); Mean Corpuscular Hemoglobin 30.9 pg (26-34); Mean Corpuscular Volume 93.4 fl (80-100); Mean Platelet Volume 10.4 fl (7.4-10.4); Platelet Count Result 277 k/mm3 (150-375); Red Blood Count 4.86 M/mm3 (4.6-6.20); Red Cell Distribution Width 13.2 % (11.5-14.5); White Blood Count 6.2 K/mm3 (4.5-10.0)
[2022-07-25 06:21] LABS: Alanine Aminotransferase 71 U/L (6-50); Albumin Level 4.6 g/dL (3.5-5.1); Alkaline Phosphatase 51 U/L (38-126); Anion Gap 8 mmol/L (8-16); Aspartate Amino Transferase 49 U/L (17-59); Bilirubin,Total 0.9 mg/dL (0.2-1.3); Blood Urea Nitrogen 18 mg/dL (9-20); Carbon Dioxide 29 mmol/L (22-30); Chloride 99 mmol/L (98-107); Estimated CRCL calculation 70 ml/min; Estimated Glomerular Filt Rate 60; Glucose 111 mg/dL (65-110); Potassium 3.8 mmol/L (3.4-5.0); Sodium 136 mmol/L (137-145)
[2022-07-25] MEDS: FLUTICASONE/SALMETEROL 115-21 MCG INHALER 1 PUFF 2 PUFF INHALATION ×2 (08:10→20:26)
[2022-07-25] MEDS: THERAPEUTIC MULTIVITAMINS/MINERALS TAB (*BKC) 1 TABLET PO (08:30)
[2022-07-25] MEDS: LOSARTAN POTASSIUM 50 MG TABLET PO (08:30)
[2022-07-25] MEDS: amLODIPine BESYLATE 5 MG TABLET 10 MG PO (08:30)
[2022-07-25] MEDS: oxyBUTYnin CHLORIDE XL 5 MG TAB.ER.24 10 MG PO (08:30)
[2022-07-25] MEDS: PANTOPRAZOLE 40 MG TABLET PO ×2 (08:31→16:36)
[2022-07-25] MEDS: ATORVASTATIN 40 MG TABLET 80 MG PO (08:31)
[2022-07-25] MEDS: METOPROLOL TARTRATE 50 MG TAB PO ×2 (08:31→16:34)
[2022-07-25] MEDS: hydroCHLOROthiazide 25 MG TABLET BY MOUTH (08:32)
[2022-07-25] MEDS: GABAPENTIN 300 MG CAPSULE 900 MG PO ×3 (08:32→16:33)
[2022-07-25] MEDS: BACLOFEN 5 MG TABLET PO ×3 (08:32→16:33)
[2022-07-25] MEDS: ASPIRIN 81 MG ENTERIC TABLET PO (08:33)
[2022-07-25] MEDS: cycloSPORINE 0.4 ML OPHTH SOLUTION 1 DROP EACH EYE ×2 (08:33→20:49)
[2022-07-25] MEDS: ISOSORBIDE MONONITRATE 30 MG TAB.ER.24H PO (08:33)
[2022-07-25] MEDS: DOCUSATE SODIUM 100 MG CAPSULE PO (08:33)
--- NOTE | 2022-07-25 08:35 | PCPTNOTE ---
Attempted to see patient for PT, however patient declined due to dizziness. Patient reported his dizziness is worse today and did feel he could work with PT.
--- NOTE | 2022-07-25 09:20 | PM.IMPN ---
Progress Note: A&P Assessment and Plan (1) Vertigo: Code(s): R42 - Dizziness and giddiness Status: Acute Assessment and Plan: Patient presented to the ED with c/o dizziness and gait disturbance. H/O TIA CT of head with no acute stroke Brain MRI pending Carotid US pending Echo with bubble study ordered neuro Q4 hours Neurology consulted. Continue ASA 81 mg daily. Lipid panel- LDL 125, HDL 42, triglycerides 269. On Lipitor 80 mg. TSH within normal limits Vitamin B12 and folate within normal limits PT/OT evaluation 07/25/22 patient with severe dizziness upon waking today and questionable onset last night, severe nystagmus noted on exam. Discussed with neurology. Unable to obtain CTA head and neck d/t contrast allergy. MRI/MRA brain/brainstem and MRI cervical spine ordered and without infarct as above. meclizine 25 mg PO x1 given. Consult PT for vestibular evaluation and therapy (2) Gait disturbance: Code(s): R26.9 - Unspecified abnormalities of gait and mobility Status: Acute Assessment and Plan: Patient uses a cane as an aide when ambulating Chronic left-sided hemiparesis PT/OT evaluation Fall precautions (3) GERD (gastroesophageal reflux disease): Qualifiers: Esophagitis presence: esophagitis presence not specified Qualified Code(s): K21.9 - Gastro-esophageal reflux disease without esophagitis Code(s): K21.9 - Gastro-esophageal reflux disease without esophagitis Status: Chronic Assessment and Plan: Acute exacerbation. +epigastric pain 07/24/22. GI cocktail x1 with improvement Continue Protonix PO BID EKG without change, troponin I x2 negative (4) COPD (chronic obstructive pulmonary disease): Qualifiers: COPD type: unspecified COPD Qualified Code(s): J44.9 - Chronic obstructive pulmonary disease, unspecified Code(s): J44.9 - Chronic obstructive pulmonary disease, unspecified Status: Chronic Assessment and Plan: Chronic, not in acute exacerbation Continue Advair and PRN albuterol for SOB. (5) Obesity (BMI 30-39.9): Code(s): E66.9 - Obesity, unspecified Status: Chronic Assessment and Plan: Lifestyle and diet modifications (6) History of tobacco abuse: Code(s): Z87.891 - Personal history of nicotine dependence Status: Chronic Assessment and Plan: Former smoker. 60 pack-year history. Quit 1983 (7) Obstructive sleep apnea: Code(s): G47.33 - Obstructive sleep apnea (adult) (pediatric) Status: Chronic Assessment and Plan: Continue HS CPAP at home settings or autotitrate. (8) Uncontrolled hypertension: Code(s): I10 - Essential (primary) hypertension Status: Chronic Assessment and Plan: Chronic, BP 146/84 to 157/89. continue home doses amlodipine, HCTZ, Imdur, Losartan, and metoprolol Adjust medications as needed for goal <130/80 Plan CODE STATUS: FULL CODE Discharge disposition: patient is from home. Estimated LOS: pending diagnostics results and hemodynamically stable. Time Spent With Patient Time with patient: 25 - 35 minutes Subjective Date/time seen: 07/25/22 09:20 Interval history: Patient complains of worsening dizziness this morning. It is worse with turning his head and associated with nausea. He has double vision. He thinks the dizziness we occurred sometime last night and much worse this morning. He has baseline weakness to left upper and left lower extremity anything since unchanged. He denies slurred speech, headache, right-sided paresthesia or weakness. Review of Systems Review of Systems: All systems reviewed & are unremarkable except as noted in HPI and below Exam Narrative: General: No acute distress.?Lying in bed. Mental Status/Psych: Pleasant and cooperative. Neutral mood and affect. Skin: Skin fair, warm, dry and intact without rashes or lesions. ? HEENT: Normocephalic. Scle
[2022-07-25] MEDS: ONDANSETRON INJ 4 MG/2 ML VIAL IV PUSH ×2 (10:04→14:50)
[2022-07-25] MEDS: MECLIZINE HCL 25 MG TABLET PO (10:05)
[2022-07-25] MEDS: PERFLUTREN LIPID MICROSPHERES 1.5 ML VIAL DILUTED TO 10 ML TOTAL VOLUME IV PUSH (15:40)
[2022-07-25] MEDS: MECLIZINE HCL 12.5 MG TABLET PO ×2 (16:35→20:50)
[2022-07-25] MEDS: MAG HYDROX/AL HYDROX/SIMETH 30 ML UDC PO (16:40)
[2022-07-25] MEDS: ACETAMINOPHEN 325 MG TABLET 650 MG PO (19:40)
[2022-07-25 20:01] LABS: Acetaminophen < 10 ug/mL (10-30)
[2022-07-25] MEDS: traZODone HCL 50 MG TABLET 100 MG PO (20:49)
[2022-07-25] MEDS: NORTRIPTYLINE HCL 25 MG CAPSULE 50 MG BY MOUTH (20:50)
[2022-07-26] VITALS (14 sets, daily range): BP systolic 116–142; BP diastolic 72–90; PULSE 68–83; RESP 12–18; TEMP 36.1–36.9; O2SAT 90–95
[2022-07-26] MEDS: FLUTICASONE/SALMETEROL 115-21 MCG INHALER 1 PUFF 2 PUFF INHALATION ×2 (08:11→20:03)
[2022-07-26] MEDS: hydroCHLOROthiazide 25 MG TABLET BY MOUTH (09:18)
[2022-07-26] MEDS: METOPROLOL TARTRATE 50 MG TAB PO ×2 (09:18→16:40)
[2022-07-26] MEDS: ISOSORBIDE MONONITRATE 30 MG TAB.ER.24H PO (09:19)
[2022-07-26] MEDS: MECLIZINE HCL 12.5 MG TABLET PO ×4 (09:19→21:02)
[2022-07-26] MEDS: amLODIPine BESYLATE 5 MG TABLET 10 MG PO (09:19)
[2022-07-26] MEDS: GABAPENTIN 300 MG CAPSULE 900 MG PO ×3 (09:19→16:39)
[2022-07-26] MEDS: ATORVASTATIN 40 MG TABLET 80 MG PO (09:19)
[2022-07-26] MEDS: oxyBUTYnin CHLORIDE XL 5 MG TAB.ER.24 10 MG PO (09:19)
[2022-07-26] MEDS: cycloSPORINE 0.4 ML OPHTH SOLUTION 1 DROP EACH EYE ×2 (09:19→21:01)
[2022-07-26] MEDS: LOSARTAN POTASSIUM 50 MG TABLET PO (09:19)
[2022-07-26] MEDS: PANTOPRAZOLE 40 MG TABLET PO ×2 (09:19→16:41)
[2022-07-26] MEDS: ASPIRIN 81 MG ENTERIC TABLET PO (09:19)
[2022-07-26] MEDS: DOCUSATE SODIUM 100 MG CAPSULE PO ×2 (09:19→21:01)
[2022-07-26] MEDS: THERAPEUTIC MULTIVITAMINS/MINERALS TAB (*BKC) 1 TABLET PO (09:20)
[2022-07-26] MEDS: BACLOFEN 5 MG TABLET PO ×3 (09:20→16:40)
[2022-07-26] MEDS: MAG HYDROX/AL HYDROX/SIMETH 30 ML UDC PO (09:29)
--- NOTE | 2022-07-26 11:04 | P.PNIM_ITS ---
Progress Note: A&P Assessment and Plan (1) Vertigo: Code(s): R42 - Dizziness and giddiness Status: Acute Assessment and Plan: Patient presented to the ED with c/o dizziness and gait disturbance. H/O TIA * CT of head with no acute stroke * Brain MRI no infarct * Carotid US negative for acute findings. * Echo with bubble study without PFO/ASD * neuro Q4 hours * Neurology following. * Continue ASA 81 mg daily. * Lipid panel- LDL 125, HDL 42, triglycerides 269. On Lipitor 80 mg. * TSH within normal limits * Vitamin B12 and folate within normal limits * PT/OT evaluation * 07/25/22 patient with severe dizziness upon waking today and questionable onset last night, severe nystagmus noted on exam. Discussed with neurology. Unable to obtain CTA head and neck d/t contrast allergy. MRI/MRA brain/brainstem and MRI cervical spine ordered and without infarct as above. meclizine 25 mg PO x1 given. Consult PT for vestibular evaluation and therapy * 07/26/22 Improving with meclizine. Continue vestibular therapy. Possible inpatient rehab placement. (2) Gait disturbance: Code(s): R26.9 - Unspecified abnormalities of gait and mobility Status: Acute Assessment and Plan: Patient uses a cane as an aide when ambulating * Chronic left-sided hemiparesis * PT/OT evaluation * Fall precautions (3) GERD (gastroesophageal reflux disease): Qualifiers: Esophagitis presence: esophagitis presence not specified Qualified Code(s): K21.9 - Gastro-esophageal reflux disease without esophagitis Code(s): K21.9 - Gastro-esophageal reflux disease without esophagitis Status: Chronic Assessment and Plan: Acute exacerbation. +epigastric pain 07/24/22. GI cocktail x1 with improvement * Continue Protonix PO BID * EKG without change, troponin I x2 negative * patient without BM >48 hours. Bowel regimen. * Consider GI evaluation outpatient if continues to be symptomatic. (4) COPD (chronic obstructive pulmonary disease): Qualifiers: COPD type: unspecified COPD Qualified Code(s): J44.9 - Chronic obstructive pulmonary disease, unspecified Code(s): J44.9 - Chronic obstructive pulmonary disease, unspecified Status: Chronic Assessment and Plan: Chronic, not in acute exacerbation * Continue Advair and PRN albuterol for SOB. (5) Obesity (BMI 30-39.9): Code(s): E66.9 - Obesity, unspecified Status: Chronic Assessment and Plan: Lifestyle and diet modifications (6) History of tobacco abuse: Code(s): Z87.891 - Personal history of nicotine dependence Status: Chronic Assessment and Plan: Former smoker. 60 pack-year history. Quit 1983 (7) Obstructive sleep apnea: Code(s): G47.33 - Obstructive sleep apnea (adult) (pediatric) Status: Chronic Assessment and Plan: Continue HS CPAP at home settings or autotitrate. (8) Uncontrolled hypertension: Code(s): I10 - Essential (primary) hypertension Status: Chronic Assessment and Plan: Chronic, BP 146/84 to 157/89. * continue home doses amlodipine, HCTZ, Imdur, Losartan, and metoprolol * Adjust medications as needed for goal <130/80 Plan CODE STATUS: FULL CODE Discharge disposition: patient is from home. Estimated LOS: june when rehab arranged Time Spent With Patient Time with patient: 25 - 35 minutes Subjective Date/time seen: 07/26/22 11:04 Interval history: He reports per
--- NOTE | 2022-07-26 11:04 | PM.IMPN ---
Progress Note: A&P Assessment and Plan (1) Vertigo: Code(s): R42 - Dizziness and giddiness Status: Acute Assessment and Plan: Patient presented to the ED with c/o dizziness and gait disturbance. H/O TIA CT of head with no acute stroke Brain MRI no infarct Carotid US negative for acute findings. Echo with bubble study without PFO/ASD neuro Q4 hours Neurology following. Continue ASA 81 mg daily. Lipid panel- LDL 125, HDL 42, triglycerides 269. On Lipitor 80 mg. TSH within normal limits Vitamin B12 and folate within normal limits PT/OT evaluation 07/25/22 patient with severe dizziness upon waking today and questionable onset last night, severe nystagmus noted on exam. Discussed with neurology. Unable to obtain CTA head and neck d/t contrast allergy. MRI/MRA brain/brainstem and MRI cervical spine ordered and without infarct as above. meclizine 25 mg PO x1 given. Consult PT for vestibular evaluation and therapy 07/26/22 Improving with meclizine. Continue vestibular therapy. Possible inpatient rehab placement. (2) Gait disturbance: Code(s): R26.9 - Unspecified abnormalities of gait and mobility Status: Acute Assessment and Plan: Patient uses a cane as an aide when ambulating Chronic left-sided hemiparesis PT/OT evaluation Fall precautions (3) GERD (gastroesophageal reflux disease): Qualifiers: Esophagitis presence: esophagitis presence not specified Qualified Code(s): K21.9 - Gastro-esophageal reflux disease without esophagitis Code(s): K21.9 - Gastro-esophageal reflux disease without esophagitis Status: Chronic Assessment and Plan: Acute exacerbation. +epigastric pain 07/24/22. GI cocktail x1 with improvement Continue Protonix PO BID EKG without change, troponin I x2 negative patient without BM >48 hours. Bowel regimen. Consider GI evaluation outpatient if continues to be symptomatic. (4) COPD (chronic obstructive pulmonary disease): Qualifiers: COPD type: unspecified COPD Qualified Code(s): J44.9 - Chronic obstructive pulmonary disease, unspecified Code(s): J44.9 - Chronic obstructive pulmonary disease, unspecified Status: Chronic Assessment and Plan: Chronic, not in acute exacerbation Continue Advair and PRN albuterol for SOB. (5) Obesity (BMI 30-39.9): Code(s): E66.9 - Obesity, unspecified Status: Chronic Assessment and Plan: Lifestyle and diet modifications (6) History of tobacco abuse: Code(s): Z87.891 - Personal history of nicotine dependence Status: Chronic Assessment and Plan: Former smoker. 60 pack-year history. Quit 1983 (7) Obstructive sleep apnea: Code(s): G47.33 - Obstructive sleep apnea (adult) (pediatric) Status: Chronic Assessment and Plan: Continue HS CPAP at home settings or autotitrate. (8) Uncontrolled hypertension: Code(s): I10 - Essential (primary) hypertension Status: Chronic Assessment and Plan: Chronic, BP 146/84 to 157/89. continue home doses amlodipine, HCTZ, Imdur, Losartan, and metoprolol Adjust medications as needed for goal <130/80 Plan CODE STATUS: FULL CODE Discharge disposition: patient is from home. Estimated LOS: june when rehab arranged Time Spent With Patient Time with patient: 25 - 35 minutes Subjective Date/time seen: 07/26/22 11:04 Interval history: He reports persistent dizziness, especially when turning his head or repositioning, however it is improved today. He was out of bed this morning required to sit stand and reported increased dizziness. He has epigastric pain that was worse during MRI and echocardiogram testing. He states he does not usually have GERD symptoms but does take omeprazole at home. He has not had a bowel movement since Monday prior to admission, which is atypical. Review of Systems Review of Systems: All syst
--- NOTE | 2022-07-26 12:09 | WPDNEUROPN ---
Progress Note: A&P Assessment and Plan (1) Vertigo: Code(s): R42 - Dizziness and giddiness Status: Acute (2) Left-sided weakness: Code(s): R53.1 - Weakness Status: Acute Plan Mr. Hay is a 71 year old male presenting with severe dizziness. Neuroimaging is negative for central cause of vertigo -- seems likely to be peripheral. He will need vestibular therapy, and will likely be going to inpatient rehab for further treatment. No further neurological work-up is needed during this admission. Subjective Date/time seen: 07/26/22 12:09 Interval history: Mr. Hay is a 71 year old male presenting with severe dizziness. Due to concerns for stroke he did have neuroimaging done including MRI brain x 2, MRA brain. MRI brain was negative for acute stroke. MRA brain and carotid Doppler were nonrevealing as well. Patient reports that he feels like he is spinning like a top . He is currently awaiting placement to possible rehab. He does feel like his symptoms are slightly better compared to yesterday. He is nauseated and had an episode of emesis yesterday. He also has double vision and photophobia. He had an MRI of the cervical spine which showed evidence of C6-C7 fusion and mild spondylosis. Review of Systems Constitutional: Constitutional: Reports no additional constitutional complaints Eyes: Comments: double vision ENT: Comments: dizziness Cardiovascular: Cardiovascular: Reports no additional cardiovascular complaints Respiratory: Respiratory: Reports dyspnea Gastrointestinal: Gastrointestinal: Reports constipation and Reports nausea Genitourinary: Genitourinary: Reports no additional male genitourinary complaints Musculoskeletal: Musculoskeletal: Reports no additional musculoskeletal complaints Integumentary/Breasts: Skin/Breast: Reports system reviewed and no additional complaints, except as docu Neurologic: Reports as per HPI Psychiatric: Psychiatric: Reports no additional psychiatric complaints Exam Const: General: no acute distress HENMT: Mouth: Yes moist mucous membranes Eyes: Other: Right pupil 6mm-->4mm, left pupil 4mm-->3mm; likely chronic -- patient has a history of cataracts and has had surgery in both eyes with some complications in the right eye Horizontal nystagmus slow smooth pursuit Resp: Effort & Inspection: normal respiratory effort Auscultation: clear to auscultation bilaterally Cardio: Rate: regular rate Rhythm: regular rhythm GI: GI Palp: Yes Soft to palpation Auscultation: normal bowel sounds Skin: General skin exam: normal color Neuro: Other: Pupils unequal but reactive bilaterally (see above), horizontal nystagmus, slowness with smooth pursuit, face symmetric, facial sensation intact, tongue protrudes midline, palate midline. Shoulder shrug normal. Strength 5/5 in RUE and RLE, 4/5 in LUE and 2/5 in LLE (chronic). Sensation intact throughout, FNF normal bilaterally. Language comprehension and fluency intact. Gait deferred. Extrem: General: normal to inspection Psych: Mental Status: mental status grossly normal Affect: normal affect Objective Data Vital Signs Vital Signs: Vital Signs - 24 hr 07/25/22 14:00 07/25/22 15:17 07/25/22 16:00 Temperature 36.8 C Pulse Rate 98 97 95 Respiratory Rate 18 18 Blood Pressure 177/95 H 161/96 H Pulse Oximetry 92 94 Oxygen Delivery 07/25/22 16:34 07/25/22 20:00 07/25/22 20:37 Temperature Pulse Rate 96 88 Respiratory Rate 14 Blood Pressure Pulse Oximetry 95 Oxygen Delivery Room Air Autopap 07/25/22 20:00 07/25/22 23:12 07/26/22 01:00 Temperature 36.7 C Pulse Rate 73 76 71 Respiratory Rate 16 12 Blood Pressure 138/82 Pulse Oximetry 94 94 Oxygen Delivery Autopap 07/26/22 00:00 07/26/22 04:00 07/26/22 06:00 Temperature 36.1 C L Pulse Rate 70 68 69 Respiratory Rate 18 Blood Pressure 142/90 H Pulse Oximetry 95 Oxygen Delivery
[2022-07-26] MEDS: FENOFIBRATE,MICRONIZED 48 MG TABLET PO (12:48)
[2022-07-26] MEDS: BISACODYL 10 MG SUPPOSITORY RECTAL (12:48)
[2022-07-26] MEDS: ACETAMINOPHEN 500 MG TABLET 1000 MG PO ×2 (13:59→21:02)
[2022-07-26] MEDS: NORTRIPTYLINE HCL 25 MG CAPSULE 50 MG BY MOUTH (21:02)
[2022-07-26] MEDS: traZODone HCL 50 MG TABLET 100 MG PO (21:02)
[2022-07-27] VITALS (8 sets, daily range): BP systolic 111–132; BP diastolic 70–72; PULSE 64–90; RESP 15–18; TEMP 36.5; O2SAT 90–96
[2022-07-27] MEDS: ACETAMINOPHEN 500 MG TABLET 1000 MG PO (05:10)
[2022-07-27] MEDS: ASPIRIN 81 MG ENTERIC TABLET PO (08:19)
[2022-07-27] MEDS: BACLOFEN 5 MG TABLET PO (08:19)
[2022-07-27] MEDS: ATORVASTATIN 40 MG TABLET 80 MG PO (08:19)
[2022-07-27] MEDS: FENOFIBRATE,MICRONIZED 48 MG TABLET PO (08:20)
[2022-07-27] MEDS: cycloSPORINE 0.4 ML OPHTH SOLUTION 1 DROP EACH EYE (08:20)
[2022-07-27] MEDS: GABAPENTIN 300 MG CAPSULE 900 MG PO (08:20)
[2022-07-27] MEDS: hydroCHLOROthiazide 25 MG TABLET BY MOUTH (08:20)
[2022-07-27] MEDS: DOCUSATE SODIUM 100 MG CAPSULE PO (08:20)
[2022-07-27] MEDS: ISOSORBIDE MONONITRATE 30 MG TAB.ER.24H PO (08:20)
[2022-07-27] MEDS: THERAPEUTIC MULTIVITAMINS/MINERALS TAB (*BKC) 1 TABLET PO (08:21)
[2022-07-27] MEDS: MECLIZINE HCL 12.5 MG TABLET PO (08:21)
[2022-07-27] MEDS: PANTOPRAZOLE 40 MG TABLET PO (08:21)
[2022-07-27] MEDS: polyethylene glycoL 3350 17 GM POWD.PACK PO (08:21)
[2022-07-27] MEDS: oxyBUTYnin CHLORIDE XL 5 MG TAB.ER.24 10 MG PO (08:21)
[2022-07-27] MEDS: amLODIPine BESYLATE 5 MG TABLET 10 MG PO (08:26)
[2022-07-27] MEDS: LOSARTAN POTASSIUM 50 MG TABLET PO (08:26)
[2022-07-27] MEDS: METOPROLOL TARTRATE 50 MG TAB PO (08:27)
[2022-07-27] MEDS: FLUTICASONE/SALMETEROL 115-21 MCG INHALER 1 PUFF 2 PUFF INHALATION (08:55)
--- NOTE | 2022-07-27 11:27 | P.DS_ITS ---
DS: Admitting Diagnosis Discharge Date 07/27/2022 Admitting Diagnosis Vertigo DS: Discharge Diagnosis Discharge Diagnosis (1) Vertigo: Code(s): R42 - Dizziness and giddiness Status: Acute Assessment and Plan: Patient presented to the ED with c/o dizziness and gait disturbance. H/O TIA * CT of head with no acute stroke * Brain MRI no infarct * Carotid US negative for acute findings. * Echo with bubble study without PFO/ASD * See in consultation by Neurology. Neuro imaging negative for central vertigo, seems to be peripheral, recommend vestibular therapy * Continue ASA 81 mg daily. * Lipid panel- LDL 125, HDL 42, triglycerides 269. On Lipitor 80 mg. * TSH within normal limits * Vitamin B12 and folate within normal limits * Participated in PT/OT during admission, including vestibular PT * 07/25/22 patient with severe dizziness upon waking today and questionable onset last night, severe nystagmus noted on exam. Discussed with neurology. Unable to obtain CTA head and neck d/t contrast allergy. MRI/MRA brain/brainstem and MRI cervical spine ordered and without infarct as above. * Symptomatic improvement with meclizine. Continue p.r.n. * Transfer to [facility] for ongoing vestibular therapy (2) Gait disturbance: Code(s): R26.9 - Unspecified abnormalities of gait and mobility Status: Acute Assessment and Plan: Patient uses a cane as an aide when ambulating * Chronic left-sided hemiparesis * PT/OT during admission, continue therapy at [facility] * Fall precautions (3) GERD (gastroesophageal reflux disease): Qualifiers: Esophagitis presence: esophagitis presence not specified Qualified Code(s): K21.9 - Gastro-esophageal reflux disease without esophagitis Code(s): K21.9 - Gastro-esophageal reflux disease without esophagitis Status: Chronic Assessment and Plan: Acute exacerbation with epigastric pain on 07/24/2022, improved with GI cocktail * Continue home omeprazole * EKG without change, troponin I x2 negative (4) COPD (chronic obstructive pulmonary disease): Qualifiers: COPD type: unspecified COPD Qualified Code(s): J44.9 - Chronic obstructive pulmonary disease, unspecified Code(s): J44.9 - Chronic obstructive pulmonary disease, unspecified Status: Chronic Assessment and Plan: Chronic, not in acute exacerbation * Continue Advair and PRN albuterol for SOB. (5) History of tobacco abuse: Code(s): Z87.891 - Personal history of nicotine dependence Status: Chronic Assessment and Plan: Former smoker. 60 pack-year history. Quit 1983 (6) Obstructive sleep apnea: Code(s): G47.33 - Obstructive sleep apnea (adult) (pediatric) Status: Chronic Assessment and Plan: Continue HS CPAP at home settings or autotitrate. (7) Uncontrolled hypertension: Code(s): I10 - Essential (primary) hypertension Status: Chronic Assessment and Plan: Chronic. Blood pressure stable during admission * continue home doses amlodipine, HCTZ, Imdur, Losartan, and metoprolol * Continue to monitor BP at [facility] DS: Summary Hospital Course Hospital Course: Date of Admission: 07/24/2022 Date of discharge: 07/27/2022 Daryl Hay is a 71-year-old male with history of CAD, COPD, GERD, ARINA, hypertension who presented to the emergency department on 07/24/2022 with complaints of dizziness. Anything on presentation to the ED, his BP was elevated, additional vital signs were stable, CBC unremarka
--- NOTE | 2022-07-27 11:27 | PM.DS ---
DS: Admitting Diagnosis Discharge Date 07/27/2022 Admitting Diagnosis Vertigo DS: Discharge Diagnosis Discharge Diagnosis (1) Vertigo: Code(s): R42 - Dizziness and giddiness Status: Acute Assessment and Plan: Patient presented to the ED with c/o dizziness and gait disturbance. H/O TIA CT of head with no acute stroke Brain MRI no infarct Carotid US negative for acute findings. Echo with bubble study without PFO/ASD See in consultation by Neurology. Neuro imaging negative for central vertigo, seems to be peripheral, recommend vestibular therapy Continue ASA 81 mg daily. Lipid panel- LDL 125, HDL 42, triglycerides 269. On Lipitor 80 mg. TSH within normal limits Vitamin B12 and folate within normal limits Participated in PT/OT during admission, including vestibular PT 07/25/22 patient with severe dizziness upon waking today and questionable onset last night, severe nystagmus noted on exam. Discussed with neurology. Unable to obtain CTA head and neck d/t contrast allergy. MRI/MRA brain/brainstem and MRI cervical spine ordered and without infarct as above. Symptomatic improvement with meclizine. Continue p.r.n. Transfer to [facility] for ongoing vestibular therapy (2) Gait disturbance: Code(s): R26.9 - Unspecified abnormalities of gait and mobility Status: Acute Assessment and Plan: Patient uses a cane as an aide when ambulating Chronic left-sided hemiparesis PT/OT during admission, continue therapy at [facility] Fall precautions (3) GERD (gastroesophageal reflux disease): Qualifiers: Esophagitis presence: esophagitis presence not specified Qualified Code(s): K21.9 - Gastro-esophageal reflux disease without esophagitis Code(s): K21.9 - Gastro-esophageal reflux disease without esophagitis Status: Chronic Assessment and Plan: Acute exacerbation with epigastric pain on 07/24/2022, improved with GI cocktail Continue home omeprazole EKG without change, troponin I x2 negative (4) COPD (chronic obstructive pulmonary disease): Qualifiers: COPD type: unspecified COPD Qualified Code(s): J44.9 - Chronic obstructive pulmonary disease, unspecified Code(s): J44.9 - Chronic obstructive pulmonary disease, unspecified Status: Chronic Assessment and Plan: Chronic, not in acute exacerbation Continue Advair and PRN albuterol for SOB. (5) History of tobacco abuse: Code(s): Z87.891 - Personal history of nicotine dependence Status: Chronic Assessment and Plan: Former smoker. 60 pack-year history. Quit 1983 (6) Obstructive sleep apnea: Code(s): G47.33 - Obstructive sleep apnea (adult) (pediatric) Status: Chronic Assessment and Plan: Continue HS CPAP at home settings or autotitrate. (7) Uncontrolled hypertension: Code(s): I10 - Essential (primary) hypertension Status: Chronic Assessment and Plan: Chronic. Blood pressure stable during admission continue home doses amlodipine, HCTZ, Imdur, Losartan, and metoprolol Continue to monitor BP at [facility] DS: Summary Hospital Course Hospital Course: Date of Admission: 07/24/2022 Date of discharge: 07/27/2022 Daryl Hay is a 71-year-old male with history of CAD, COPD, GERD, ARINA, hypertension who presented to the emergency department on 07/24/2022 with complaints of dizziness. Anything on presentation to the ED, his BP was elevated, additional vital signs were stable, CBC unremarkable, head CT with no acute findings. He was admitted to the hospitalist service for further evaluation and management was seen in consultation by Neurology. Please see above for further details. Slight symptomatic improvement with meclizine. Given ongoing issues with vertigo, he was discharged to [facility] to for ongoing vestibular therapy. Patient fell controlled plans for discharge. Discussed worrisome signs and symptom
[2022-07-27 12:46] LABS: EDCOVIDSCREEN Negative (Negative)
== END 2022-07-27 14:35 | DRG 149 ==
LOC: ANHED 23:18 → ANH2MED 07-24 02:42
PROVIDERS: Nurse Practitioner; Nurse Practitioner Family; Admitting Provider Internal Medicine; Emergency Provider Emergency Medicine; PCP Physician Assistant; Visit Provider Physician Assistant
DX: H81.399 Other peripheral vertigo, unspecified ear (principal); G81.94 Hemiplegia, unspecified affecting left nondominant side; R26.9 Unspecified abnormalities of gait and mobility; J44.9 Chronic obstructive pulmonary disease, unspecified; I25.10 Atherosclerotic heart disease of native coronary artery without angina pectoris; I10 Essential (primary) hypertension; K57.30 Diverticulosis of large intestine without perforation or abscess without bleeding; K21.9 Gastro-esophageal reflux disease without esophagitis; E78.5 Hyperlipidemia, unspecified; E66.9 Obesity, unspecified; M19.90 Unspecified osteoarthritis, unspecified site; N40.0 Benign prostatic hyperplasia without lower urinary tract symptoms; G47.33 Obstructive sleep apnea (adult) (pediatric); F41.9 Anxiety disorder, unspecified; F32.A Depression, unspecified; Z20.822 Contact with and (suspected) exposure to COVID-19; Z79.82 Long term (current) use of aspirin; Z86.73 Personal history of transient ischemic attack (TIA), and cerebral infarction without residual deficits; Z85.89 Personal history of malignant neoplasm of other organs and systems; Z87.891 Personal history of nicotine dependence
CPT/HCPCS: 36415; 70450; 70544; 70551; 70553; 71045; 72141; 80053; 80061; 80307; 81001; 82607; 82746; 83036; 83735; 83880; 84443; 84484; 85025; 85027; 85610; 85730; 87426; 93005; 93880; 94640; 96360; 96374; 96375; 96376; 97161; 97162; 97165; 97530; 97535; 99285; A9270; A9577; C8929; C9803; G0378; J2405; J7030; Q9957

== ENCOUNTER 2024-08-02 00:18 | Day surgery (SDC) | payer MEDICARE, SELFPAY ==
[2024-07-24 08:35] VITALS: BMI 28.5
--- OUTSIDE RECORDS SUMMARY | 2024-08-02 00:29 | XMS_ITS | Encounter Summary ---
Author Organization [facility] Address [address] [place] [address] Care Team Providers Care Chiropractic Physician Name Role Phone Hitesh Esparza MD Primary Care Provider [phone] Anne Lawson RN Unavailable [phone] Encounter Details Date Type Department Care Team (Late st Contact Info) Description 07/19/2013 Therapy Visit EXTERNAL NON-[facility] DEPT Unknown, Provider Social History Tobacco Use Types Packs/Day Years Used Date Smoking Tobacco: Former Cigarettes 2 16 0 02/21/1976 - 02/21/1992 Smokeless Tobacco: Never Alcohol Use Standard Drinks/Week Comments Yes 11.7 (1 standard drink = 0.6 oz pure alcohol) Sex and Gender Information Value Date Recorded Sex Assigned at Not on file 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 Answer Date of Assessment Author No 07/12/2013 1:00 PM Luz Rahman RN * Is person blind or have serious difficulty seeing? Answer Date of Assessment Author No 07/12/2013 1:00 PM Luz Rahman RN * Does person have serious difficulty walking/climbing stairs? Answer Date of Assessment Author No 07/12/2013 1:00 PM CDT Curtner, Luz D, RN * Does person have difficulty dressing/bathing? Answer Date of Assessment Author No 07/12/2013 1:00 PM Luz Rahman RN * Does person have difficulty doing errands alone? Answer Date of Assessment Author No 07/12/2013 1:00 PM Luz Rahman RN documented as of this encounter Mental Status * Does person have difficulty concentrating/remembering/making decisions? Answer Entry Date Author No 07/12/2013 1:00 PM Luz Rahman RN documented in this encounter Plan of Treatment Not on file documented as of this encounter Visit Diagnoses Not on filedocumented in this encounter Care Teams Chiropractic Physician Relationship Specialty Start Date End Date Hitesh Esparza MD [address] [place] [id number] PCP - General Family Medicine 02/26/13 Anne Lawson RN Machinery Repair Maintenance Supervisor 07/16/13 documented as of this encounter
--- OUTSIDE RECORDS SUMMARY | 2024-08-02 00:29 | XMS_ITS | Continuity of Care Document ---
Author Organization [facility] Address [address] [place] [address] Phone Care Team Providers Care Flash Oven Operator Name Role Phone Fredo Lamb DO Unavailable Unavailable Advance Directives Directive Yes / No Effective Date File Name No Information Encounters Encounter Description Practice Location Reason(s) For Visit Diagnoses Date Provider Providers Copied on Encounter [facility], [address], [place], [place], [id number], tel:[phone] [facility] (formerly [facility]) No Information Adonis Pulido. [address] [facility], [place], [address], [place]. tel: [phone] Family History Family Member Type Diagnosis Age At Onset No Information Payers Payer name Insurance type Covered republican ID Authoriza tion(s) [employer] SOI CI [id number] Social History Type Description Quantity Date Captured [...]
--- OUTSIDE RECORDS SUMMARY | 2024-08-02 00:29 | XMS_ITS | Encounter Summary ---
Author Organization [facility] Healthcare Address [address] [place] [address] Care Team Providers Care Associate Pathologist Name Role Phone Charanjit Yanes MD Primary Care Provider [phone] Zackary Grider DO Primary Care Provider [phone] Encounter Details Date Type Department Care Team (Late st Contact Info) Description 02/28/2020 Telephone [facility] Radiology [address] [place] [address] Terrence Hernandez MD PhD [address] [facility] [address] [place], [place] [id number] Social History Tobacco Use Types Packs/Day Years Used Date Smoking Tobacco: Former Cigarettes 2 25 Smokeless Tobacco: Never Alcohol Use Standard Drinks/Week Comments Yes 15 (1 standard drink = 0.6 oz pu re alcohol) Sex and Gender Information Value Date Recorded Sex Assigned at Not on file Legal Sex Male 3:05 AM CONCESSIONS MANAGER Gender Identity Male 02/03/2021 8:53 AM CONCESSIONS MANAGER Sexual Orientation Straight 08/05/2018 2: 16 PM CDT Occupation Industry Job Start Date Job End Date retired Not on file Not on file Not on file documented as of this encounter Plan of Treatment Not on file documented as of this encounter Visit Diagnoses Not on filedocumented in this encounter Care Teams Associate Pathologist Relationship Specialty Start Date End Date Charanjit Yanes MD [address] [facility] [address] [place] [address] PCP - General Internal Medicine 02/17/20 10/12/23 Zackary Grider DO [address] [place] [address] PCP - General Internal Medicine 10/13/23 documented as of this encounter
--- OUTSIDE RECORDS SUMMARY | 2024-08-02 00:29 | XMS_ITS | Clinical Summary ---
Author Organization [facility] [place] Address [address] [address] Care Team Providers Care Barrel Stave Inspector Name Role Phone Unavailable Primary Care Provider Unavailabl e Allergies Active Allergy Reactions Criticality Noted Date Comments Maninder Inhibitors Angioedema High 01/10/2019 Clotrimazole Rash Medium 02/26/2013 Iodinated Contrast Media Angioedema High 01/17/2017 Omnipaque, IV contrast 12/20/16 at [facility] acute angioedema during CT scan Iohexol Angioedema High 07/09/2020 Niacin Other (See Comments),Rash Medium 02/26/2013 Medications amLODIPine (NORVASC) 5 mg tablet Take 10 mg by mouth daily. 3 Active ASPIRIN ORAL Take 81 mg by mouth daily. Active atorvastatin (LIPITOR) 80 mg tablet Take 80 mg by mouth daily. 4 Active baclofen (LIORESAL) 5 mg tablet Take 5 mg by mouth 3 times daily. 3 Active fenofibrate (LOFIBRA) 54 mg Take 52 mg by mouth daily. Active psyllium seed, with sugar, (FIBER SUPPLEMENT ORAL) Take 1 Tablet by mouth daily. Active gabapentin (NEURONTIN) 300 mg capsule Take 900 mg by mouth 3 times daily. Active losartan (COZAAR) 50 mg tablet Take 1 Tablet by mouth daily. 4 Active metoprolol tartrate (LOPRESSOR) 50 mg tablet Take 50 mg by mouth 2 times daily. Active [id number]-tdcl -Lmfolate-algal 27 mg iron-1.13 mg-581.92 mg Capsule Take by mouth. Activ e omeprazole (PriLOSEC) 40 mg Capsule, Delayed Release(E.C.) Take 40 mg by mouth daily. Active traZODone (DESYREL) 100 mg tablet Take 100 mg by mouth daily at bedtime. Active fluticasone propion-salmete roL (ADVAIR DISKUS,WIXELA INHUB) 250-50 mcg/dose disk inhaler Take 1 Puff by inhalation 2 times daily. Active cycloSPORINE (RESTASIS) 0.05 % emulsion 1 Drop by Ophthalmic route 2 times daily. Active Cetirizine (ZyrTEC) 10 mg Capsule Take 10 mg by mouth daily. Active ACETAMINOPHEN ORAL Take 1,000 mg by mouth 3 times daily. Active oxyBUTYnin (DITROPAN XL) 10 mg Extended Release 24 hour tablet Take 10 mg by mouth daily. Active docusate sodium (COLACE) 50 mg capsule Take 50 mg by mouth daily. Active cetirizine-pseu doephedrine sr 12 hour (ZyrTEC-D) 5-120 mg tablet Take 1 Tablet by mouth 2 times daily. 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 Post laminectomy syndrome 09/05/2023 Encounters Date Type Department Care Team Description 07/11/2024 External Device Data [facility] ABSTRACTION Provider, Abstract 07/11/2024 External Device Data [facility] ABSTRACTION Provider, Abstract 07/10/2024 External Device Data [facility] ABSTRACTION Provider, Abstract 07/09/2024 External Device Data [facility] ABSTRACTION Provider, Abstract 06/04/2024 External Device Data [facility] ABSTRACTION Provider, Abstract 05/28/2024 External Device Data [facility] ABSTRACTION Provider, Abstract 05/08/2024 External Device Data [facility] ABSTRACTION Provider, Abstract from Last 3 Months Immunizations Immunization Administration Dates Next Due (ADACEL/BOOSTRIX)(10 YR UP) TDAP VACCINE, 0.5ML, IM 09/08/2017,09/07/2017 (PNEUMOVAX 23)(50 YRS UP) PN EUMOCOCCAL POLYSACCHARIDE (PPV23) 0.5 ML, IM 09/08/2017,09/07/2017 (PREVNAR 13)(6 WKS UP) PNEUM OCOCCAL CONJUGATE (PCV13) 0.5 ML, IM 01/18/2019,12/11/2014 (SHINGRIX)(50 YRS UP) ZOSTER VACCINE RECOMBINANT, 0.5 ML, IM 11/23/2017,09/12/2017,09/11/2017 INFLUENZA VACCINE QUADRIVALE NT ADJ 65 YR UP PF IM 11/21/2019 Influenza Vaccine High Dose 65+ Yrs IM 1 ,10/18/2017,10/17/2017,11/22,12/02/2015 Zoster Vaccine Live SQ 01/29/2015 Family History Medical History Relation Name Comments Heart Disease Maternal Grandmother Stroke Paternal Grandfather Relation Name Status Comments Maternal Grandmother Paternal Grandfather Social History Tobacco Use Types Packs/Day Years Used Date Smoking Tobacco: Former Cigarettes 3 20 1 966 - 1986 Smokeless Tobacco: Never Tobacco Cessation:Counseling Given: Not Answered Alcohol Use Standard Drinks/Week Comments Yes 0 (1 standard drink = 0.6 oz pur e alcohol) occ Feeling Safe Answer Date Recorded Are you in a relationship wi th someone who hurts you emotionally and/or physically? No 11/07/2023 Sex and Gender Information Value Date Recorded Sex Assigned at Not on file Legal Sex Male 11:04 AM CDT Gender Identity Not on file Sexual Orientation Not on file Last Filed Vital Signs Vital Sign Reading Time Taken Comments Blood Pressure 118/62 12/18/2023 2:17 PM CDT Pulse 56 11/07/2023 11:27 AM CDT Temperature 36.6 C (97.8 F) 11/07/2023 10:18 AM CDT Respiratory Rate 16 11/07/2023 11:27 AM CDT Oxygen Saturation 95% 11/07/2023 11:27 AM CDT Inhaled Oxygen Concentration - - Weight 108.9 kg (240 lb) 12/18/2023 2:17 PM CDT Height 182.9 cm (6') 12/18/2023 2:17 PM CDT Body Mass Index 32.55 12/18/2023 2:17 PM CDT Plan of Treatment Health Maintenance Due Date Last Done Comments DIABETES ANNUAL FOOT EXAM 1968 DIABETES ANNUAL RETINAL EXAM 1968 DIABETES MICROALBUMIN ANNUAL SCREEN 1968 LDL CHOLESTEROL ANNUAL 1968 COLORECTAL SCREENING 11/21/1995 Colorectal Cancer Screening 11/21/1995 FIT-DNA Q 3 years 11/21/1995 FIT/FOBT Q 1 year 11/21/1995 Flex Sig/CT Colonography Q 5 years 11/21/1995 RSV VACCINE (60+ or ) (1 - Risk 60-74 years 1-dose series) 2010 Abdominal Aortic Aneurysm (A AA) Screening 11/21/2015 DIABETES HBA1C Q 6 MONTHS 06/19/2017 12/20/2016 INFLUENZA VACCINE (#1) 2023 0, 12/03/2018, 10/18/2017, Additional history exists DTAP/TDAP/TD VACCINES (3 - T d or Tdap) 09/09/2027 09/08/2017, 09/07/2017 ZOSTER VACCINE Completed 11/23/2017, 08/21, 09/11/2017, Additional history exists PNEUMOCOCCAL VACCINE 50+ YEARS Completed 1 03/20/2018, 09/08/2017, 09/07/2017, Additional history exists Medical Devices Implanted Type Area Power Lineman Technician Device Identifier Shelf Expiration Date Model / Serial / Lot Cage Cage Throat Description:r/t radiation; t hroat surgery with titanium to neck Hip Hip Description:and SI joint has been fused on the left Lead Vectris 1x8 60cm Trial [facility] [id number] - [id number] Implanted:Qty: 1 on 09/28/2023 by Ilia Barrett MD at [facility] Lead N/A: Spine Lumbar [employer]- NEUROLOGIC TECH 06/29/2027 [id number] / / [id number] Lead Vectris 1x8 60cm Trial [facility] [id number] - [id number] Implanted:Qty: 1 on 09/28/2023 by Ilia Barrett MD at [facility] Lead N/A: Spine Lumbar [employer]- NEUROLOGIC TECH 08/14/2027 [id number] / / [id number] Description:no charge item p art of kit/bundle per rep Lead Surescan Vectris Mri [id number] - [id number] Implanted:Qty: 1 on 10/20/2023 by Ilia Barrett MD at [facility] Lead N/A: Back [employer]- NEUROLOGIC TECH 03/21/2027 [id number] / / [id number] Lead Surescan Vectris Mri [id number] - [id number] Implanted:Qty: 1 on 10/20/2023 by Ilia Barrett MD at [facility] Lead N/A: Back [employer]- NEUROLOGIC TECH 04/20/2027 [id number] / / [id number] [place] Injex Bi-Wing [id number] - [id number] Implanted:Qty: 1 on 10/20/2023 by Ilia Barrett MD at [facility] Other N/A: Back [employer]- NEUROLOGIC TECH 09/04/2027 [id number] / / [id number] Cervical Fusion Kit Intellis Trial Lead 1 Implanted:Qty: 1 on 09/28/2023 by Ilia Barrett MD at [facility] N/A: Spine Lumbar [employer] INTELTRIAL 1 / / Implantable Pulse Generator Implanted:Qty: 1 on 10/20/2023 by Ilia Barrett MD at [facility] N/A: Back [employer] 08/17/2024 [id number] / / [id number] Insurance RX [employer] RX Member Subscriber Plan / Payer (Ef fective 2023-Present) Name:Daryl Hay Relation to Subscriber:Self Name:Daryl Hay Payer ID:Not on file Group ID:[id number] Type:RX Medicare Part D Address: [address] [employer] [place] [employer] (INTERNAL) [facility] Advance Directives For more information, please contact: [phone] * Full Code (Latest Code Status on File) Date Activated Date Inactivated Comments 10/20/2023 1:49 PM 10/20/2023 8:08 PM * Full Code Date Activated Date Inactivated Comments 10/20/2023 11:05 AM 10/20/2023 1:49 PM
--- OUTSIDE RECORDS SUMMARY | 2024-08-02 00:29 | XMS_ITS | Referral Summary ---
Author Organization [facility] [address] [facility] [address] Address [address] [place] [address] Care Team Providers Care Alumnae Secretary Name Role Phone Zackary Grider DO Primary Care Provider [phone] Encounters Date Type Department Care Team Description 07/01/2024 Telephone [facility] Medical [facility] Cardiology [address] [place] [address] Nyla Pearson NP 06/06/2024 Telephone [facility] Cardiology [address] [place] [address] Esteban Andrade MD from Last 3 Months Allergies Active Allergy Reactions Criticality Noted Date Comments Maninder Inhibitors Angioedema High 05/29/2020 Clotrimazole Rash Medium 02/26/2013 Iodinated Contrast Media Angioedema High 01/17/2017 Omnipaque, IV contrast 12/20/16 [address] [facility] acute angioedema during CT scan Lisinopril Angioedema High 01/10/2019 Niacin Rash Medium 02/26/2013 Medications traZODone (DESYREL) 100 mg tablet take 1 tablet by oral route every day 0 0 01/13/2 015 Active Additional Information Patient taking differently:100 mgoral Nightly, Indications: insomnia associated with depression, Reported on 04/12/2024 albuterol HFA (PROAIR HFA) 90 mcg/actuation inhaler inhale 2 puff by inhalation route every 4 - 6 hours as needed 0 Inhaler 0 015 Active omeprazole (PriLOSEC) 40 mg capsuleIndicatio ns:gerd Take 1 capsule (40 mg total) by mouth nightly Active fluticasone propion-salmeter ol (ADVAIR DISKUS) 250-50 mcg/dose diskus inhaler Inhale 1 puff 2 (two) times a day Rinse mouth with water after use. Do not swallow. Active oxybutynin XL (DITROPAN-XL) 10 mg 24 hr tabletIndication s:Increased Urinary Frequency Take 1 tablet (10 mg total) by mouth daily before dinner Takes at 1500. 020 Active acetaminophen (TYLENOL) 500 mg tablet Take 2 tablets (1,000 mg total) by mouth 3 (three) times a day 021 Active coenzyme Q10 10 mg capsule Take 1 capsule (10 mg total) by mouth daily Active FIBER, DEXTRIN, ORAL Take by mouth Active lzthbink67-xigr- Lmfolate-algal 27 mg iron-1.13 mg-581.92 mg capsule Take by mouth Active cetirizine HCl (CETIRIZINE ORAL) Take 10 mg by mouth daily Zrytec-D 5-120mg Active gabapentin (NEURONTIN) 300 mg capsule Take 3 capsules (900 mg total) by mouth 3 (three) times a day 023 Active amLODIPine (NORVASC) 5 mg tablet Take 1 tablet (5 mg total) by mouth daily 023 Active cycloSPORINE (RESTASIS) 0.05 % ophthalmic emulsion Administer 1 drop into both eyes 2 (two) times a day Active aspirin 81 mg enteric coated tablet Take 1 tablet (81 mg total) by mouth daily Active baclofen (LIORESAL) 5 mg tabletIndication s:Muscle Spasticity of Spinal Origin Take 1 tablet (5 mg total) by mouth 3 (three) times a day 270 tablet 2 023 Active nortriptyline (PAMELOR) 25 mg capsuleIndicatio ns:Lumbar radiculopathy Take 1 capsule (25 mg total) by mouth nightly 90 capsule 3 024 Active Additional Information Patient taking differently: 50 mgoral Nightly, Reported on 04/12/2024 atorvastatin (LIPITOR) 80 mg tablet TAKE 1 TABLET BY MOUTH EVERY DAY 90 tablet 2 024 Active isosorbide mononitrate ER (IMDUR) 60 mg 24 hr tablet Take 0.5 tablets (30 mg total) by mouth daily 45 tablet 3 025 Active ezetimibe (ZETIA) 10 mg tablet TAKE 1 TABLET BY MOUTH EVERY DAY 90 tablet 1 025 Active metoprolol tartrate (LOPRESSOR) 25 mg immediate release tablet Take 1 tablet (25 mg total) by mouth 2 (two) times a day 025 Active losartan (COZAAR) 50 mg tablet TAKE 1 TABLET BY MOUTH EVERY DAY 90 tablet 2 025 Active fenofibrate (TRICOR) 54 mg tablet Take 1 tablet (54 mg total) by mouth daily 90 tablet 025 Active metoprolol (LOPRESSOR) 50 mg tablet take 1 tablet by oral route 2 times every day with meals 0 0 015 2024 Discontinued(R eorder) losartan (COZAAR) 50 mg tablet TAKE 1 TABLET BY MOUTH EVERY DAY 90 tablet 2 024 2024 Discontinued fenofibrate (TRICOR) 54 mg tablet Take 1 tablet (54 mg total) by mouth daily 90 tablet 025 2024 Discontinued(R eorder) Active Problems Problem Noted Date Diagnosed Date Deficient smooth pursuit eye movements 3 Assessment & Plan (11/30/2022 3:42 PM CDT): 72 y/o man with history of central vertigo and balance issues referred for abnormal extraocular movements. No symptomatic diplopia in daily life, but does notice bilateral monocular diplopia during eye exam. Exam today notable for impaired smooth pursuits, hypometric saccades, and square-wave jerks, but no significant strabismus or extraocular motility limitation. Remainder of ocular exam including OCTs unremarkable. Has been seen by Dr. Hernandez and had thorough lab workup for reversible causes of ataxia. Overall, exam and history consistent with extraocular movement abnormalities that are nonspecific but frequently seen in patients with abnormalities of the central balance integration pathways. Reassured patient that his eye movement findings are consistent with his known balance issues and do not represent a new or unrelated diagnosis. Given that he has no symptomatic vision complaints, would not recommend any neuro-ophthalmology specific intervention at this time. Recommend continuing to work with vestibular rehabilitation and to continue to follow with Dr. Mackenzie and Dr. Hernandez. Spondylosis of lumbar region without myelopathy or radiculopathy 05/22/2022 Lumbar radiculopathy 03/03/2022 Greater trochanteric bursitis of left hip 2022 Moderate left ventricular hypertrophy 12/30/2021 Orthostatic hypotension 11/15/2021 Morbid (severe) obesity due to excess calories 0 11/15/2021 ARINA on CPAP 11/06/2020 Abnormal MRI 09/24/2020 Cognitive and behavioral changes 09/24/2020 At risk for impaired ability to perform caretaki ng 07/22/2020 Impaired ambulation 07/22/2020 Balance problems 07/22/2020 At risk for venous thromboembolism (VTE) 021 Overview (07/22/2020): Problem added by Discern Expert Rule: [id number]_VTERISKPROB_3 Primary osteoarthritis of left hip 04/27/2020 Overview (04/27/2020): Added automatically from request for surgery [id number] Pain of left lower extremity 03/27/2020 Left hip pain 03/27/2020 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 No diagnosis on [place] I 03/24/2020 Other chronic pain 03/24/2020 Anxiety disorder 03/24/2020 Functional hemiparesis 01/27/2020 Assessment & Plan (02/27/2023 7:26 AM FITNESS DIRECTOR): There was no evidence of a primary movement disorder on his examination today. He may have underlying true weakness, but it seemed more likely that this was functional weakness. TIA (transient ischemic attack) 07/30/2019 Chronic fatigue 07/30/2019 Angioedema due to angiotensi n converting enzyme inhibitor (MANINDER-I) 01/22/2019 SOB (shortness of breath) 04/23/2018 Other hyperlipidemia 01/10/2018 Labile hypertension 05/25/2017 Anemia 05/25/2017 Coronary artery disease invo lving [place] coronary artery of [place] heart without angina pectoris 01/17/2017 Allergic to IV contrast 01/17/2017 Edema of larynx 10/26/2016 Preoperative state 06/21/2016 Overview (07/15/2016): Preoperative cardiovascular examination History of malignant neoplasm of larynx 03/25/19 16 Dysphonia 03/25/2015 Mixed diabetic hyperlipidemi a associated with type 2 diabetes mellitus ([facility]) 03/23/2015 Overview (05/27/2016): DM type 2 with diabetic dyslipidemia Chronic obstructive pulmonary disease 03/23/2015 Overview (05/27/2016): Chronic obstructive pulmonary disease, unspecified COPD type Asthma 01/13/2015 Overview (05/27/2016): Uncomplicated asthma, unspecified asthma severity Exercise-induced angina 01/13/2015 Overview (05/27/2016): Angina of effort Change in voice 03/22/2013 Back pain 02/26/2013 Hypertension associated with diabetes 07/01/2010 Gastroesophageal reflux disease 07/01/2010 Resolved Problems Problem Noted Date Diagnosed Date Resolved Date Vestibular neuronitis 09/13/20222022 Benign hypertension 01/13/2015 12/22/19 23 Overview (05/27/2016): HTN (hypertension), benign Dyslipidemia 01/13/2015 03/08/2021 Overview (05/27/2016): Dyslipidemia Hypercholesterolemia 07/01/2010 022 Immunizations Immunization Administration Dates Next Due Influenza, Quad, Adjuvantate d, Intramuscular 11/21/2019 Influenza, Trivalent, High D ose, Split, Preservative Free, Intramuscular 12/03/2018,10/18/2017,10/17/2017,11/22,12/02/2015 Pneumococcal Conjugate PCV 13 01/18/2019, 015 Pneumococcal Polysaccharide PPV23 09/08/2017, Tdap 09/08/2017,09/07/2017 ZOSTER LIVE 01/29/2015 ZOSTER Recombinant 11/23/2017,09/12/2017, 018 Social History Tobacco Use Types Packs/Day Years Used Date Smoking Tobacco: Former Cigarettes Q uit: 1960 Smokeless Tobacco: Never Alcohol Use Standard Drinks/Week Comments Yes 15 (1 standard drink = 0.6 oz pu re alcohol) Social Connection and Isolat ion Panel [NHANES] Answer Date Recorded In a typical week, how many times do you talk on the phone with family, friends, or neighbors? More than three times a week 06/24/2020 How often do you get togethe r with friends or relatives? Twice a week 06/24/2020 How often do you attend chur ch or hinduism services? Never 06/24/2020 Do you belong to any clubs o r organizations such as orthodoxy groups, unions, fraternal or athletic groups, or school groups? No 06/24/2020 How often do you attend meet ings of the clubs or organizations you belong to? Never 06/24/2020 Are you , , di vorced, , never , or living with a partner? 06/24/2020 AUDIT-C Answer Date Recorded Q1: How often do you have a drink containing alc ohol? 2-3 times a week 04/03/2023 Q2: How many drinks containi ng alcohol do you have on a typical day when you are drinking? 1 or 2 04/03/2023 Frequency of Binge Drinking Not on file 03/23 Overall Financial Resource Strain (CARDIA) Answe r Date Recorded How hard is it for you to pa y for the very basics like food, housing, medical care, and heating? Not hard at all 06/24/2020 Hunger Vital Sign Answer Date Recorded Within the past 12 months, y ou worried that your food would run out before you got the money to buy more. Never true 07/20/19 23 Within the past 12 months, t he food you bought just didn't last and you didn't have money to get more. Never true 07/19/2022 PRAPARE - Transportation Answer Date Re corded In the past 12 months, has l ack of transportation kept you from medical appointments or from getting medications? No 06/2020 In the past 12 months, has l ack of transportation kept you from meetings, work, or from getting things needed for daily living? No 06/24/2020 Housing Stability Vital Sign Answer Rick e Recorded In the last 12 months, was t here a time when you were not able to pay the mortgage or rent on time? No 06/24/2020 Number of Places Lived in the Last Year Not on f ile 06/24/2020 In the last 12 months, was t here a time when you did not have a steady place to sleep or slept in a long-term (including now)? No 06/24/2020 Sex and Gender Information Value Date Recorded Sex Assigned at Not on file Legal Sex Male 3:05 AM FITNESS DIRECTOR Gender Identity Male 02/03/2021 8:53 AM FITNESS DIRECTOR Sexual Orientation Straight 08/05/2018 2: 16 PM CDT Occupation Industry Job Start Date Job End Date retired Not on file Not on file Not on file Last Filed Vital Signs Vital Sign Reading Time Taken Comments Blood Pressure 106/68 04/12/2024 1:06 PM FITNESS DIRECTOR Pulse 56 04/12/2024 1:06 PM FITNESS DIRECTOR Temperature 36.2 C (97.1 F) 06/28/2023 11:42 AM CDT Respiratory Rate 18 06/28/2023 11:42 AM CDT Oxygen Saturation 94% 04/12/2024 1:06 PM FITNESS DIRECTOR Inhaled Oxygen Concentration - - Weight 106.6 kg (235 lb) 04/12/2024 1:06 PM FITNESS DIRECTOR Height 182.9 cm (6') 04/12/2024 1:06 PM FITNESS DIRECTOR Body Mass Index 31.87 04/12/2024 1:06 PM FITNESS DIRECTOR Plan of Treatment Not on file Goals Goal Patient Goal Type Associated Problems Recent Progress Patient-Stated? Author CCM Chronic Pain Care Plan Chronic Care Management Worsening( 11:44 AM CDT) No Malini Abel, RN Note: Problem: Chronic Pain Goals: 1. Minimize further functional decline 2. Maximize quality of life 3. Control pain Strategies: - Activity/exercise program recommendation - Conservative stepwise pain medicine strategy with multi-disciplinary approach - Recommend healthy lifestyle strategies and compensatory methods as needed Medical Devices Implanted Type Area Computer Support Technician Device Identifier Shelf Expiration Date Model / Serial / Lot Titanium Si Joint Sacrum Cage & Screws In Ncek Neck Eduin Simple [employer] [id number] 58mm Limit 4 Hole Hip G Hemisphere Offset Shell Acetabular - [id number] Implanted:Qty: 1 on 06/23/2020 by Zach Sena MD at [facility] Left: Hip Eduin [employer] Inc [id number] 07/27/2029 [id number] / / [id number] Eduin [employer] [id number] 40mm Lumen Hip G Liner Acetabular Longevity Sterile Latex Free - [id number] Implanted:Qty: 1 on 06/23/2020 by Zach Sena MD at [facility] Left: Hip Eduin [employer] [id number] 11/20/[id number] / / [id number] Eduin [employer] [id number] Taperloc 154mm Type 1 Press Fit Reduce Hip 133d 17 High Offset - [id number] Implanted:Qty: 1 on 06/23/2020 by Zach Sena MD at [facility] Left: Hip [employer]in [employer] [id number] 04/24/2029 [id number] / / [id number] Eduin [employer] 650-1067 G7 Type 1 Hip +3mm Offset Taper Sleeve Centering Titanium Biolox - [id number] Implanted:Qty: 1 on 06/23/2020 by Zach Sena MD at [facility] Left: Hip Eduin [employer] Inc 07/04/2029 [id number] / / [id number] Eduin [employer] 650-1058 G7 40mm Hip Head Femoral Biolox Delta Biolox Option - [id number] Implanted:Qty: 1 on 06/23/2020 by Zach Sena MD at [facility] Left: Hip Eduin [employer] 12/10/2029 650-1058 / / [id number] Procedures Procedure Name Priority Date/Time Associated Diagnosis Comments LIPID PANEL Routine 09/06/2023 10:20 AM CDT BASIC METABOLIC PANEL Routine 06/15/2020 9:53 AM CDT from Last 3 Months or Most Recently Relevant to Health Maintenance Results * Lipid panel (09/06/2023 10:20 AM CDT) SCRIBED Cholesterol, Total 135 <200 [facility] SCRIBED HDL 39 >40 [facility] SCRIBED LDL 62 <100 [facility] SCRIBED Triglycerides 207 <150 [facility] Blood Historical Provider LAB BLOOD ORDERABLES Edit ed Result - Final [facility] * (ABNORMAL) Basic metabolic panel (06/15/2020 9:53 AM CDT) [facility] Glucose 100(H) 65 - 99 mg/dL [facility] - 01 BUN 19 8 - 27 mg/dL [facility] - 01 Creatinine, Serum 1.19 0.76 - 1.27 mg/dL [facility] - 01 eGFR If NonAfricn Am 62 >59 mL/min/1.7 3 [facility] - 01 eGFR If Africn Am 72 >59 mL/min/1.7 3 [facility] - 01 Comment: [facility] currently reports eGFR in compliance with the current recommendations of the National Kidney Foundation. [facility] will update reporting as new guidelines are published from the NKF-ASN Task force. BUN/creat ratio 16 10 - 24 [facility] - 01 Sodium 141 134 - 144 mmol/L [facility] - 01 Potassium, sr 4.2 3.5 - 5.2 mmol/L [facility] - 01 Chloride 102 96 - 106 mmol/L [facility] - 01 CO2 27 20 - 29 mmol/L [facility] - 01 Calcium 9.8 8.6 - 10.2 mg/dL [facility] - 01 06/15/2020 9:53 AM CDT 06/15/2020 Narrative [facility] - 06/16/2020 5:07 AM CDT Performed at: - [facility] [id number] Roll Plugger Machine Operator: Kurt Ly PhD, Phone: [phone] Tucker Rai MD LAB BLOOD ORDERABLES Fin al Result [facility] - 01 from Last 3 Months or Most Recently Relevant to Health Maintenance Insurance [facility] MEDICARE [facility] MEDICARE ADVANTAGE [facility] ADV[facility]AGE Advance Directives For more information, please contact: [phone] Documents on File Type Date Recorded Patient Photographic Developer And Printer Expl anation ADVANCE DIRECTIVE 01/10/2019 10:53 AM Pow er of Living Specialist-Medical * Full Code (Latest Code Status on File) Date Activated Date Inactivated Comments 06/23/2020 6:12 PM 06/25/2020 8:07 PM Care Teams Alumnae Secretary Relationship Specialty Start Date End Date Zackary Grider DO [address] [facility] [address] [place] [address] PCP - General Internal Medicine 10/13/23
--- OUTSIDE RECORDS SUMMARY | 2024-08-02 00:29 | XMS_ITS | Encounter Summary ---
Author Organization [facility] Healthcare Address [address] [place] [address] Care Team Providers Care Supervisor Fertilizer Name Role Phone Charanjit Yanes MD Primary Care Provider [phone] Zackary Grider DO Primary Care Provider [phone] Reason for Visit * Reason Onset Date Comments question 02/01/2022 Encounter Details Date Type Department Care Team (Late st Contact Info) Description 02/01/2022 Telephone [facility] [address] [facility] [address] [place] [address] Ilia Barrett MD PhD [address] [facility] [address] [facility] [address] [place] [address] question Social History Tobacco Use Types Packs/Day Years Used Date Smoking Tobacco: Former Cigarettes 2 25 1 960 - 1984 Smokeless Tobacco: Never Alcohol Use Standard Drinks/Week [...] week 06/24/2020 How often do you attend [facility] or zoroastrianism services? Never 06/24/2020 Do you belong to any clubs o r organizations such as spiritism groups, unions, fraternal or athletic groups, or school groups? No 06/24/2020 How often do you attend meet ings of the clubs or organizations you belong to? Never 06/24/2020 Are you , , di vorced, , never , or living with a partner? 06/24/2020 AUDIT-C Answer Date Recorded Q1: How often do you have a drink containing alc ohol? 2-4 times a month 06/23/2020 Q2: How many drinks containi ng alcohol do you have on a typical day when you are drinking? 1 or 2 06/23/2020 Q3: How often do you have si x or more drinks on one occasion? Never 06/23/2020 Overall Financial Resource Strain (CARDIA) Answe r [...] the money to buy more. Never true 06/25/19 21 Within the past 12 months, t he food you bought just didn't last and you didn't have money to get more. Never true 06/24/2020 PRAPARE - Transportation Answer Date Re corded [...] place to sleep or slept in a correction (including now)? No 06/24/2020 Sex and Gender Information Value Date Recorded Sex Assigned at Not on file Legal Sex Male 3:05 AM RN OSTOMY Gender Identity Male 02/03/2021 8:53 AM RN OSTOMY Sexual Orientation Straight 08/05/2018 2: 16 PM CDT Occupation Industry Job Start Date Job End Date retired Not on file Not on file Not on file documented as of this encounter Plan of Treatment Not on file documented as of this encounter Goals Goal Patient Goal Type Associated Problems Recent Progress Patient-Stated? Author CCM Chronic Pain Care Plan Chronic Care Management Worsening( 11:44 AM CDT) Malini Gillis, RN Note: Problem: Chronic Pain Goals: 1. Minimize further functional decline 2. Maximize quality of life 3. Control pain Strategies: - Activity/exercise program recommendation - Conservative stepwise pain medicine strategy with multi-disciplinary approach - Recommend healthy lifestyle strategies and compensatory methods as needed documented as of this encounter Visit Diagnoses Not on filedocumented in this encounter Care Teams Supervisor Fertilizer Relationship Specialty Start Date End Date Charanjit Yanes MD [address] [place] [address] PCP - General Internal Medicine 02/17/20 10/12/23 Zackary Grider DO [address] [place] [address] PCP - General Internal Medicine 10/13/23 documented as of this encounter
--- OUTSIDE RECORDS SUMMARY | 2024-08-02 00:29 | XMS_ITS | Encounter Summary ---
Author Organization [facility] Address [address] [facility] [address] [place] [address] Care Team Providers Care Continuous Process Tanner Rotary Drum Name Role Phone Hitesh Esparza MD Primary Care Provider [phone] Maurice Johnson PhD Unavailable [phone] Charanjit Yanes MD Primary Care Provider [phone] Zackary Grider DO Primary Care Provider [phone] Encounter Details Date Type Department Care Team (Late st Contact Info) Description 06/13/2016 Orders Only [facility] ProviderMarie MD [address] [place] [address] Social History Tobacco Use Types Packs/Day Years Used Date Smoking Tobacco: Former Alcohol Use Standard Drinks/Week Comments Yes 0 (1 standard drink = 0.6 oz pur e alcohol) Sex and Gender Information Value Date Recorded Sex Assigned at Not on file Legal Sex Male 3:05 AM BOTTOM CRANE OPERATOR Gender Identity Male 02/03/2021 8:53 AM BOTTOM CRANE OPERATOR Sexual Orientation Straight 08/05/2018 2: 16 PM CDT documented as of this encounter Plan of Treatment Not on file documented as of this encounter Procedures Procedure Name Priority Date/Time Associated Diagnosis Comments CARDIOLOGY REPORT 06/13/2016 documented in this encounter Results * CARDIOLOGY REPORT (06/13/2016) Anatomical Region Laterality Modality Other Narrative 06/13/2016 Ordered by an unspecified provider. us Historical Provider [facility] GREGORY MULLEN Final Result documented in this encounter Visit Diagnoses Not on filedocumented in this encounter Care Teams Continuous Process Tanner Rotary Drum Relationship Specialty Start Date End Date Hitesh Esparza MD [address] [place] [address] PCP - General 03/23/15 02/16/20 Charanjit Yanes MD [address] [facility] [address] [place] [address] PCP - General Internal Medicine 02/17/20 10/12/23 Zackary Grider DO [address] [facility] 21 [place] [address] PCP - General Internal Medicine 10/13/23 Maurice Johnson, PhD [address] [facility] [address] [place] [address] Referring Physician Speech Therapy 10/25/17 02/16/20 documented as of this encounter
--- OUTSIDE RECORDS SUMMARY | 2024-08-02 00:29 | XMS_ITS | Encounter Summary ---
Author Organization [facility] Address [address] [place] [address] Care Team Providers Care Forge Shop Machine Repairer Name Role Phone Unavailable Primary Care Provider Unavailabl e Encounter Details Date Type Department Care Team (Late st Contact Info) Description 10/24/2023 Telephone [facility] [place] [address] [facility] [address] [facility] [address] [place] [address] Ilia Barrett MD [address] [facility] [address] [place] [address] Social History Tobacco Use Types Packs/Day Years Used Date Smoking Tobacco: Former Cigarettes 3 20 1 966 - 1986 Smokeless Tobacco: Never Alcohol Use Standard Drinks/Week Comments Yes 0 (1 standard drink = 0.6 oz pur e alcohol) occ Feeling Safe Answer Date Recorded Are you in a relationship wi th someone who hurts you emotionally and/or physically? No 10/20/2023 Sex and Gender Information Value Date Recorded Sex Assigned at Not on file Legal Sex Male 11:04 AM CDT Gender Identity Not on file Sexual Orientation Not on file documented as of this encounter Plan of Treatment Not on file documented as of this encounter Visit Diagnoses Not on filedocumented in this encounter
--- OUTSIDE RECORDS SUMMARY | 2024-08-02 00:29 | XMS_ITS | Encounter Summary ---
Author Organization [facility] Healthcare Address [address] [place] [address] Care Team Providers Care Operations Executive Name Role Phone Charanjit Yanes MD Primary Care Provider [phone] Zackary Grider DO Primary Care Provider [phone] Encounter Details Date Type Department Care Team (Late st Contact Info) Description 06/22/2022 Telephone [facility] [place] [facility] [address] [facility] [address] [place] [address] Ilia Barrett MD PhD [address] [place] [address] Social History Tobacco Use Types Packs/Day Years [...] often do you attend chur ch or buddhism services? Never 06/24/2020 Do you belong to any clubs o r organizations such as jewish groups, unions, fraternal or athletic groups, or school groups? No 06/24/2020 How often do you attend meet ings of the clubs or organizations you belong to? Never 06/24/2020 Are you , , di vorced, , never , or living with a partner? 06/24/2020 AUDIT-C Answer Date Recorded Q1: How often do you have a drink containing alc ohol? 2-3 times a week 06/21/2022 Q2: How many drinks containi ng alcohol do you have on a typical day when you are drinking? 1 or 2 06/21/2022 Q3: How often do you have si x or more drinks on one occasion? Never 06/21/2022 Overall Financial Resource Strain (CARDIA) Answe r [...] place to sleep or slept in a care home (including now)? 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
--- OUTSIDE RECORDS SUMMARY | 2024-08-02 00:29 | XMS_ITS | Clinical Summary ---
Author Organization [facility] [address] Address [address] [place] [address] Care Team Providers Care Water Plant Pump Operator Supervisor Name Role Phone Zackary Grider DO Primary Care Provider [phone] Allergies Active Allergy Reactions Criticality Noted Date Comments Maninder Inhibitors Angioedema High 05/29/2020 Clotrimazole Rash Medium 02/26/2013 Iodinated Contrast Media Angioedema High 01/17/2017 Omnipaque, IV contrast 12/20/16 at [facility] acute angioedema during CT scan Lisinopril Angioedema High 01/10/2019 Niacin Rash Medium 02/26/2013 Medications traZODone (DESYREL) 100 mg tablet take 1 tablet by oral route every day 0 0 015 Active Additional Information Patient taking differently:100 [...] FIBER, DEXTRIN, ORAL Take by mouth Active lxelgyrh99-lfjw- Lmfolate-algal 27 mg iron-1.13 mg-581.92 mg capsule [...] Diagnosed Date Deficient smooth pursuit eye movements Assessment & Plan (11/30/2022 3:42 PM CDT): [...] (04/27/2020): Added automatically from request for surgery [id number] Pain of left lower extremity 03/27/2020 Left hip pain 03/27/2020 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 No diagnosis on [place] I 03/24/2020 Other chronic pain 03/24/2020 Anxiety disorder 03/24/2020 Functional hemiparesis 01/27/2020 Assessment & Plan (02/27/2023 7:26 AM DEVELOPMENT ARCHITECT): There was no evidence of a primary [...] Anemia 05/25/2017 Coronary artery disease invo lving [place] coronary artery of [place] heart without angina pectoris 01/17/2017 Allergic to IV contrast 01/17/2017 Edema of larynx 10/26/2016 Preoperative state 06/21/2016 Overview (07/15/2016): Preoperative cardiovascular examination History of malignant neoplasm of larynx 03/25/19 16 Dysphonia 03/25/2015 Mixed diabetic hyperlipidemi a associated with type 2 diabetes mellitus ([facility]) 03/23/2015 Overview (05/27/2016): DM type 2 with [...] Vestibular neuronitis 09/13/20222022 Benign hypertension 01/13/2015 12/22/19 Overview (05/27/2016): HTN (hypertension), benign Dyslipidemia 01/13/2015 03/08/2021 Overview (05/27/2016): Dyslipidemia Hypercholesterolemia 07/01/2010 022 Encounters Date Type Department Care Team Description 07/01/2024 Telephone [facility] Cardiology [address] [place] [address] Nyla Pearson NP 06/06/2024 Telephone [facility] Medical [facility] Card[facility] [address] [place] [address] Esteban Andrade MD from Last 3 Months Immunizations Immunization Administration Dates Next Due Influenza, Quad, Adjuvantate d, Intramuscular 11/21/2019 Influenza, Trivalent, High D ose, Split, Preservative Free, Intramuscular 12/03/2018,10/18/2017,10/17/2017,11/22,12/02/2015 Pneumococcal Conjugate PCV 13 01/18/2019, 015 Pneumococcal Polysaccharide PPV23 09/08/2017, Tdap 09/08/2017,09/07/2017 ZOSTER LIVE 01/29/2015 ZOSTER Recombinant 11/23/2017,09/12/2017, 018 Surgical History Surgery Date Site/Laterality Comments CATARACT EXTRACTION LASIK PROSTATE SURGERY VASECTOMY ANTERIOR CERVICAL DISCECTOMY W/ FUSION 02/20/2010 - 01/22 MICRODISCECTOMY LUMBAR 02/20/2010 - 02/19/2011 ROTATOR CUFF REPAIR TRANSURETHRAL RESECTION OF PROSTATE FL UPPER GI AIR CONTRAST W KUB 12/25/2018 Left FL FLUORO GUIDED INJECTION HIP LEFT 02/07/2019 Left SPINE SURGERY FL UPPER GI AIR CONTRAST W KUB 09/10/2019 Left JOINT REPLACEMENT HIP SURGERY COLONOSCOPY ESOPHAGUS SURGERY Medical History Medical History Date Comments Asthma Asthma; Comments : [facility] 01/13/2015 - Malignant neoplasm of larynx (HCC) Cancer, throat; Comments: [facility] 01/13/2015 - Sleep apnea Sleep apnea; Com ments: [facility] 01/13/2015 - GERD (gastroesophageal reflux disease) Arthritis Benign prostatic hyperplasia Cataract Depression Hypertension Emphysema of lung (HCC) Hypercholesteremia Obesity Allergic rhinitis Osteoarthritis Spinal stenosis Diverticulitis Low back pain Joint pain Osteoporosis Heart disease Neuromuscular disorder (HCC) Low back pain Low back pain Mild bibasilar atelectasis Vertigo HL (hearing loss) Tinnitus Coronary artery disease TIA (transient ischemic attack) Vertigo Family History Medical History Relation Name Comments Alcohol abuse Brother Linwood Heart attack Brother Linwood Myocardial infa rction; Heart disease Father Dad Tremor Father Dad Dementia Maternal Grandmother Alcohol abuse Mother Mom Arthritis Mother Mom Breast cancer Mother Mom Cancer Mother Mom Hypertension Mother Mom Stroke Paternal Grandfather Bc Stroke; Parkinsonism Paternal Grandmother Mitral valve prolapse Sister Mitral valve prolapse; Anesthesia problems Neg Hx Relation Name Status Comments Brother Linwood Father Dad (Age 91) Maternal Grandmother Mother Mom (Age 82) Paternal Grandfather Bc Paternal Grandmother Sister Social History Tobacco Use Types Packs/Day Years [...] week 06/24/2020 How often do you attend [facility] or latter-day services? Never 06/24/2020 Do you belong to any clubs o r organizations such as rastafari groups, unions, fraternal or athletic groups, or [...] place to sleep or slept in a residential (including now)? No 06/24/2020 Sex and Gender Information Value Date Recorded Sex Assigned at Not on file Legal Sex Male 3:05 AM DEVELOPMENT ARCHITECT Gender Identity Male 02/03/2021 8:53 AM DEVELOPMENT ARCHITECT Sexual Orientation Straight 08/05/2018 2: 16 PM CDT Occupation Industry Job Start Date Job End Date retired Not on file Not on file Not on file Obstetrics History Last Filed Vital Signs Vital Sign Reading Time Taken Comments Blood Pressure 106/68 04/12/2024 1:06 PM DEVELOPMENT ARCHITECT Pulse 56 04/12/2024 1:06 PM DEVELOPMENT ARCHITECT Temperature 36.2 C (97.1 F) 06/28/2023 11:42 AM CDT Respiratory Rate 18 06/28/2023 11:42 AM CDT Oxygen Saturation 94% 04/12/2024 1:06 PM DEVELOPMENT ARCHITECT Inhaled Oxygen Concentration - - Weight 106.6 kg (235 lb) 04/12/2024 1:06 PM DEVELOPMENT ARCHITECT Height 182.9 cm (6') 04/12/2024 1:06 PM DEVELOPMENT ARCHITECT Body Mass Index 31.87 04/12/2024 1:06 PM DEVELOPMENT ARCHITECT Plan of Treatment Health Maintenance Due Date Last Done Comments Albumin Creatinine Ratio, Urine 1950 Colon Cancer Screening-Colonoscopy 1950 Hemoglobin A1C 1950 Hepatitis C Screening 1950 Foot Exam 1950 Hepatitis B Screening 1968 Abdominal Aortic Aneurysm (A AA) Screen 11/21/2015 Well Visit 65+ 11/21/2015 eGFR 06/15/2021 06/15/2020, 10/21, 07/03/2018, Additional history exists Fall Risk Assessment 06/25/2021 06/25/2020 Depression Screening 11/15/2023 11/14/2022 Dilated Eye Exam 12/01/2023 11/30/2022 Lipid Panel 09/05/2024 09/06/2023, 03/23, 03/25/2022, Additional history exists Influenza Vaccine (Season Ended) 2024 11/21/2019, 12/03/2018, 10/18/2017, Additional history exists DTaP/Tdap/Td Vaccine (3 - Td or Tdap) 09/09/2027 09/08/2017, 09/07/2017 Zoster Vaccine Completed 11/23/2017, 08/21, 09/11/2017, Additional history exists Pneumococcal vaccine 65+ Completed 019, 09/08/2017, 09/07/2017, Additional history exists Goals Goal Patient Goal Type Associated Problems Recent Progress Patient-Stated? Author CCM Chronic Pain Care Plan Chronic Care Management Worsening( 11:44 AM CDT) Malini Gillis RN Note: Problem: Chronic Pain Goals: 1. Minimize further functional decline 2. Maximize quality of life 3. Control pain Strategies: - Activity/exercise program recommendation - Conservative stepwise pain medicine strategy with multi-disciplinary approach - Recommend healthy lifestyle strategies and compensatory methods as needed Medical Devices Implanted Type Area Production Broaching Machine Operator Device Identifier Shelf Expiration Date Model / Serial / Lot Titanium Si Joint Sacrum Cage & Screws In Ncek Neck [employer] [id number] 58mm Limit 4 Hole Hip G Hemisphere Offset Shell Acetabular - [id number] Implanted:Qty: 1 on 06/23/2020 by Zach Sena MD at [facility] Left: Hip [employer] [id number] 07/27/2029 [id number] / / [id number] [employer] [id number] 40mm Lumen Hip G Liner Acetabular Longevity Sterile Latex Free - [id number] Implanted:Qty: 1 on 06/23/2020 by Zach Sena MD at [facility] Left: Hip [employer] [id number] 11/20/[id number] / / [id number] [employer] [id number] Taperloc 154mm Type 1 Press Fit Reduce Hip 133d 17 High Offset - [id number] Implanted:Qty: 1 on 06/23/2020 by Zach Sena MD at [facility] Left: Hip [employer] [id number] 04/24/2029 [id number] / / [id number] [employer] 650-1067 G7 Type 1 Hip +3mm Offset Taper Sleeve Centering Titanium Biolox - [id number] Implanted:Qty: 1 on 06/23/2020 by Zach Sena MD at [facility] Left: Hip [employer] 07/04/2029 [id number] / / [id number] [employer] 650-1058 G7 40mm Hip Head Femoral Biolox Delta Biolox Option - [id number] Implanted:Qty: 1 on 06/23/2020 by Zach Sena MD at [facility] Left: Hip [employer] 12/10/2029 [id number] / / [id number] Procedures Procedure Name Priority Date/Time Associated Diagnosis [...] [facility] SCRIBED Triglycerides 207 <150 [facility] Blood us Historical Provider LAB BLOOD ORDERABLES Edit ed Result - Final [facility] * (ABNORMAL) Basic metabolic panel (06/15/2020 9:53 AM CDT) Glucose 100(H) 65 - 99 mg/dL [facility] [...] 06/16/2020 5:07 AM CDT Performed at: - [facility] [address] [id number] Dispensing Optician: Kurt Ly PhD, Phone: [phone] Tucker Rai MD LAB BLOOD ORDERABLES Fin al Result [facility] - 01 from Last 3 Months or Most Recently Relevant to Health Maintenance Insurance [facility] MEDICARE [facility]ICARE [facility] Address: [address] [address] [place] [address] UHC MEDICARE ADVANTAGE [facility] Address: [facility] [address] [place] [address] Advance Directives For more information, please contact: [phone] Documents on File Type Date Recorded Patient Barrel Dedenting Machine Operator Expl anation ADVANCE DIRECTIVE 01/10/2019 10:53 AM Pow er of Blood Tester-Medical * Full Code (Latest Code Status on File) Date Activated Date Inactivated Comments 06/23/2020 6:12 PM 06/25/2020 8:07 PM Care Teams Water Plant Pump Operator Supervisor Relationship Specialty Start Date End Date Zackary Grider DO [address] [facility] [address] [place] [address] PCP - General Internal Medicine 10/13/23
--- OUTSIDE RECORDS SUMMARY | 2024-08-02 00:29 | XMS_ITS | Clinical Summary ---
Author Organization [facility] Address [address] [facility] [place] [address] Care Team Providers Care Railroad Signal Operator Name Role Phone Hitesh Esparza MD Primary Care Provider [phone] Anne Lawson RN Unavailable [phone] Source Comments [facility],non-owned Affiliates and Associated Physician Practices is amultiple site organization consisting of ambulatory clinics and hospital sitesin [place], [place] and [place]. This disclosure is being madepursuant to the Care Everywhere program and may not contain all information available regarding this patient. Last updated 17.[facility] Allergies Active Allergy Reactions Criticality Noted Date Comments Clotrimazole 02/26/2013 Niacin 02/26/2013 Medications * Be aware that medications may not be up to date on this document. Alwaysverify current medications with the patient. Fenofibrate (TRICOR PO) Take 160 mg by mouth at bedtime. Active atorvastatin (LIPITOR) 10 MG tablet Take 1 Tab by mouth at bedtime. Active traZODone (DESYREL) 100 MG tablet Take 1 Tab by mouth at bedtime. Active indapamide (LOZOL) 2.5 MG tablet Take 1 Tab by mouth once daily after breakfast. Instructed to take AM of surgery Active Cetirizine-Pseu doephedrine (ZYRTEC-D PO) Take 2 Tabs by mouth once daily. Active omeprazole (PRILOSEC) 20 MG capsule Take 1 Cap by mouth once daily after breakfast. Instructed to take AM of surgery Active melatonin 3 MG tablet Take 1 Tab by mouth at bedtime. Active EQ FIBER SUPPLEMENT PO Take 1 Tab by mouth once daily. Active sildenafil (VIAGRA) 100 MG tablet as needed. Active metoprolol tartrate IR (LOPRESSOR) 50 MG tablet Take 50 mg by mouth once daily after breakfast. Active oxyCODONE-aceta minophen (PERCOCET) 5-325 MG tablet Take 1-2 Tabs by mouth every 4 hours as needed. 40 Tab 0 4 Active Additional Information Patient not taking.Reported on 11/07/2017 cyclobenzaprine (FLEXERIL) 10 MG tablet Take 1 Tab by mouth every 8 hours as needed for Muscle Spasms. 42 Tab 0 4 Active Additional Information Patient not taking.Reported on 11/07/2017 oxyCODONE-aceta minophen (PERCOCET) 5-325 MG tablet Take 1 Tab by mouth every 6 hours as needed for Pain. 40 Tab 0 4 Active Additional Information Patient not taking.Reported on 11/07/2017 albuterol HFA (PROAIR HFA) 108 (90 BASE) MCG/ACT inhaler 90 mcg 5 Active aspirin (ASPIRIN) 81 MG tablet Take 81 mg by mouth Active Coenzyme Q-10 200 MG Take 200 mg by mouth Active docusate sodium (COLACE) 50 MG capsule 50 mg 5 Active fluticasone propionate (FLONASE) 50 MCG/ACT nasal spray [place] 1 spray into the nose Active ADVAIR DISKUS 250-50 MCG/DOSE inhaler 8 Active lisinopril (PRINIVIL; ZESTRIL) 40 MG tablet 8 Active multivitamin (OPURITY) CHEW tablet take 1 tablet by oral route every day with food 5 Active naproxen sodium (ALEVE) 220 MG tablet Take 220 mg by mouth Active tadalafil (CIALIS) 20 MG tablet Take 20 mg by mouth Active Active Problems Problem Noted Date Diagnosed Date Back pain 02/26/2013 Family History Medical History Relation Name Comments Cataract Brother Hypertension Brother Other Brother HEART ATTACK LI RICKY DISEASE ALCOHOL ABUSE COPD - Chronic Obstructive P ulmonary Disease Father Cataract Father High Blood Pressure Father Hypertension Father Other Father AAORTIC ANEURYS M Cancer Mother Cataract Mother High Blood Pressure Mother Hypertension Mother Other Mother CONGESTIVE HEAR T FAILURE ANEMIA Other Sister MICRO VALVE PRO LAPSE Relation Name Status Comments Brother Father Mother Sister Social History Tobacco Use Types Packs/Day Years Used Date Smoking Tobacco: Former Cigarettes 2 16 0 02/21/1976 - 02/21/1992 Smokeless Tobacco: Never Alcohol Use Standard Drinks/Week Comments Yes 11.7 (1 standard drink = 0.6 oz pure alcohol) Sex and Gender Information Value Date Recorded Sex Assigned at Not on file Legal Sex Male 3:18 PM FLAME CUTTER Gender Identity Not on file Sexual Orientation Not on file 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 Not on file Not on file Not on file Not on file Not on file Not on file RETIRED Not on file Not on file Not on file Last Filed Vital Signs Vital Sign Reading Time Taken Comments Blood Pressure 144/71 12/24/2016 12:00 PM CDT Pulse 78 12/24/2016 12:00 PM CDT Temperature 36.6 C (97.9 F) 12/24/2016 12:00 PM CDT Respiratory Rate 18 12/24/2016 12:00 PM CDT Oxygen Saturation 99% 12/24/2016 12:00 PM CDT Inhaled Oxygen Concentration - - Weight 115.2 kg (254 lb) 11/07/2017 1:42 PM CDT Height 182.9 cm (6') 11/07/2017 1:42 PM CDT Body Mass Index 34.45 11/07/2017 1:42 PM CDT Plan of Treatment Health Maintenance Due Date Last Done Comments COLOGUARD (AGES 45-75) - COLON CA SCREENING 1950 COLON MONITORING 1950 COLONOSCOPY - COLON CA SCREENING 1950 CT COLONOGRAPHY - COLON CA SCREENING 1950 Colorectal Cancer Screening 1950 FIT - COLON CA SCREENING 1950 FLEX SIG - COLON CA SCREENING 1950 HEPATITIS C SCREENING 11/15/1968 DTAP/TDAP/TD VACCINES (1 - Tdap) 1969 PNEUMOCOCCAL VACCINE 50+ (1 of 1 - PCV) 2000 ZOSTER VACCINE (1 of 2) 2000 AAA SCREENING 11/21/2015 SCREENING FOR DIABETES 12/25/2019 7, 12/23/2016, 12/22/2016, Additional history exists COVID-19 VACCINE (2023- season) 2023 DEPRESSION SCREENING 02/21/2024 INFLUENZA VACCINE (Season Ended) 2024 Respiratory Syncytial Virus (RSV) Vaccine Pt: or over 60 yrs (1 - 1-dose 75+ series) 2025 HEPATITIS B VACCINE Aged Out No longe r eligible based on patient's age to complete this topic HIB VACCINE Aged Out No longer eligi ble based on patient's age to complete this topic HPV VACCINE Aged Out No longer eligi ble based on patient's age to complete this topic MENINGOCOCCAL (Group B) VACCINE SHARED DECISION-MAKING Aged Out No longer eligible based on patient's age to complete this topic MENINGOCOCCAL GROUPS A/C/Y/W VACCINE Aged Out No longer eligible based on patient's age to complete this topic Medical Devices Implanted Type Area Medical Imaging Tech Device Identifier Shelf Expiration Date Model / Serial / Lot Si-Bone Fusion Geo 7.0mm X 50mm Implanted:Qty: 1 on 07/12/2013 by Shlomo Donato MD at [facility] 03/21/2018 7050-90 / / [id number] Si- Bone Fusion Geo 7.0mm X 50mm Implanted:Qty: 1 on 07/12/2013 by Shlomo Donato MD at [facility] 03/22/2018 7050-90 / / [id number] Si-Bone Ifuse Implant System 7.0mm X 50mm Implanted:Qty: 1 on 07/12/2013 by Shlomo Donato MD at [facility] 03/21/2018 7050-90 / / [id number] Procedures Procedure Name Priority Date/Time Associated Diagnosis Comments BASIC METABOLIC PANEL (CALCIUM TOTAL) Routine 12/24/2016 3:52 AM CDT from Last 3 Months or Most Recently Relevant to Health Maintenance Results * BASIC METABOLIC PANEL (CALCIUM TOTAL) (12/24/2016 3:52 AM CDT) BUN 19 7 - 26 mg/dL [facility] Creatinine 0.9 0.6 - 1.2 mg/dL [facility] Sodium 139 136 - 145 mmol/L [facility] Potassium 4.1 3.5 - 4.5 mmol/L [facility] Chloride 103 98 - 107 mmol/L [facility] CO2 27 22 - 29 mmol/L [facility] Glucose 102 70 - 115 mg/dL [facility] Calcium 9.7 8.4 - 10.2 mg/dL [facility] Anion Gap 13 8 - 18 [facility] BUN/Creatinine Ratio 21 7 - 23 [facility] Osmolality Calculated 290 270 - 300 mOsm/kg [facility] eGFR >60 >60 mL/min/1.7 3 m2 [facility] Blood specimen (specimen) BLOOD SPECIMEN / Unknown 12/24/2016 3:52 AM CDT 12/24/2016 4:02 AM CDT us Peg Maher MD LAB - CHEMISTRY ORDERABLES Fin al Result [facility] [address] [phone] from Last 3 Months or Most Recently Relevant to Health Maintenance Insurance MEDICARE [facility] MEDICARE Advance Directives * Full Code (Latest Code Status on File) Date Activated Date Inactivated Comments 07/16/2013 8:08 AM 07/17/2013 10:47 AM * Full Code Date Activated Date Inactivated Comments 07/12/2013 12:13 PM 07/16/2013 8:08 AM Care Teams Railroad Signal Operator Relationship Specialty Start Date End Date Hitesh Esparza MD [address] [place] [address] PCP - General Family Medicine 02/26/13 Anne Lawson RN Labor Training Manager 07/16/13
--- OUTSIDE RECORDS SUMMARY | 2024-08-02 00:29 | XMS_ITS | Continuity of Care Document ---
Author Organization [facility] Address [address] [place] [address] Phone Care Team Providers Care Vinyl Hanger Name Role Phone TIKA Barrett PT, Scott Unavailable Unavaila ble Procedures Procedure Date Neuromuscular Re-Ed Therapeutic Exercise Neuromuscular Re-Ed Therapeutic Exercise Manual Therapy Progress Note Neuromuscular Re-Ed Therapeutic Exercise Manual Therapy Neuromuscular Re-Ed Therapeutic Exercise Neuromuscular Re-Ed Therapeutic Exercise Neuromuscular Re-Ed Therapeutic Exercise Neuromuscular Re-Ed Therapeutic Exercise Manual Therapy Neuromuscular Re-Ed Therapeutic Exercise Manual Therapy PT Evaluation Moderate Complexity Advance Directives Directive Yes / No Effective Date File Name No Information Encounters Encounter Description Practice Location Reason(s) For Visit Diagnoses Date Provider Providers Copied on Encounter [facility], [address], [place], [place], [id number], [place] tel:[phone] [facility] No Information Arnold Staples. [address], [address], [place], [address], [place]. tel:[phone] Referring Provider: Ryan Kingston [address]st [address], [place], [address]. tel:[phone] [facility], [address], [place], [place], [id number], [place] tel:[phone] [facility] No Information Arnold Staples. [address], [address], [place], [address], . tel:[phone] Referring Provider: Ryan Kingston [facility] [address]st [address], [place], [address]. tel:[phone] [facility], [address], [place], [place], [id number], [place] tel:[phone] [facility] No Information Arnold Staples. [address] [place] [address], [address], [place], [address], [place]. tel:[phone] Referring Provider: Ryan Kingston [facility] [address]st [address], [place], [address]. tel:[phone] [facility], [address], [place], [place], [id number], [place] tel:[phone] [facility] No Information Arnold Staples. [address] [place] [address], [address], [place], [address], [place]. tel:[phone] Referring Provider: Ryan Kingston [facility] [address]st [address], [place], [address]. tel:[phone] [facility], [address], [place], [place], [id number], [place] tel:[phone] [facility] No Information Arnold Staples. [address] [place] [address], [address], [place], [address], [place]. tel:[phone] Referring Provider: Ryan Kingston [facility] [address], [place], [address]. tel:[phone] [facility], [address], [place], [place], [id number], tel:[phone] [facility] No Information Arnold Staples. [address], [address], [place], [place], . tel:[phone] Referring Provider: Ryan Kingston [facility] 1st [address], [place], [address]. tel:[phone] [facility], [facility] [address] [facility] [address], [place], [id number], tel:[phone] [facility] No Information Arnold Staples. [address], [address], [place], [place], . tel:[phone] Referring Provider: Ryan Kingston [facility] 1st [address], [place], [address]. tel:[phone] [facility], [facility] [address], [address], tel:[phone] [facility] No Information Arnold Staples. [address], [address], [place], [place], . tel:[phone] Referring Provider: Ryan Kingston [facility] 1st Floor [address], [place], [address]. tel:[phone] Family History Family Member Type Diagnosis Age At Onset No Information Payers Payer name Insurance type Covered democrat ID Manuel garcia(s) Medicare [place] [id number] [facility] Medicare Supplement CI [id number] Social History Type Description Quantity Date Captured Comments Sex Male Smoking Status No Information Chief Complaint And Reason For Visit No Information Reason For Referral Reason For Referral No Information History Of Present Illness Encounter Date Complaint History Of Prese nt Illness No Information Functional Status Date Functional Assessmen t No Information Instructions Date Instruction Additional Infor yasmin Dietary needs education Related to Overweight Assessments Type Assessment Date No Information Patient Care Teams Name Effective Dates (start - stop) Status Members No Information
--- OUTSIDE RECORDS SUMMARY | 2024-08-02 00:29 | XMS_ITS | Encounter Summary ---
Author Organization [facility] Address [address] [place] [address] Care Team Providers Care County Nurse Name Role Phone Hitesh Esparza MD Primary Care Provider Anne Lawson RN Unavailable [phone] Encounter Details Date Type Department Care Team (Late st Contact Info) Description 04/29/2013 Therapy Visit EXTERNAL NON-[facility] [place] [address] [place] [address] Social History Tobacco Use Types Packs/Day Years Used Date Smoking Tobacco: Former Smokeless Tobacco: Never Alcohol Use Standard Drinks/Week Comments Yes 0 (1 standard drink = 0.6 oz pur e alcohol) 2 drinks per day Sex and Gender Information Value Date Recorded Sex Assigned at Not on file Legal Sex Male 3:18 PM SAW RUNNER Gender Identity Not on file Sexual Orientation Not on file 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
[2024-08-02 10:28] VITALS: BP 136/92; PULSE 50; RESP 18; TEMP 36.2; O2SAT 98
[2024-08-02] MEDS: LACTATED RINGERS 1,000 ML 150 ML IV CONT (10:39)
--- NOTE | 2024-08-02 10:45 | WPDANESEPPF ---
Anes - Initial Pre Proc Eval Procedure: Operation Date: 08/02/24 11:30 Proposed Procedures p Screening Colonoscopy - Jamar De MD Date/Time: 08/02/24 10:45 Surgeon: Jamar De MD Pre Op Diagnosis: Screening Patient Data Age: 73 Gender: M Height: 1.83 m Weight: 97 kg Last Vital Signs Temp 36.2 C L 08/02/24 10:28 Pulse 50 L 08/02/24 10:28 Resp 18 08/02/24 10:28 BP 136/92 H 08/02/24 10:28 Pulse Ox 98 08/02/24 10:28 O2 Del Method Room Air 08/02/24 10:28 Allergies Allergy/AdvReac Type Severity Reaction Status Date / Time iohexol (From Omnipaque) Allergy Severe Anaphylactic Verified 08/02/24 10:25 Shock lisinopril Allergy Severe Swelling Verified 08/02/24 10:25 of Lip/Tongue/Throat clotrimazole AdvReac Unknown Rash Verified 08/02/24 10:25 niacin AdvReac Unknown Rash Verified 08/02/24 10:25 Home Medications ?Medication ?Instructions ?Recorded ?Confirmed ?Type Fiber Supplement 1 cap PO QAM 01/06/19 08/02/24 History ecoljwap-wszkewnq-mgmyr acid 400 1 tablet PO DAILY 01/06/19 08/02/24 History mcg-vit K 20 mcg-lycop 300 mcg tablet (Men's Multivitamin) losartan 50 mg tablet 50 mg PO DAILY 02/07/20 08/02/24 History albuterol sulfate 90 mcg/actuation 2 puff inhalation PRN PRN Wheezing 03/06/20 07/24/24 History aerosol inhaler (ProAir HFA) aspirin 81 mg tablet,delayed 81 mg PO DAILY 03/06/20 08/02/24 History release (Ginny Low Dose Aspirin) atorvastatin 40 mg tablet 80 mg PO QAM 08/12/20 08/02/24 History cyclosporine 0.05 % eye drops 1 drp EACH EYE Q12H 07/12/21 08/02/24 History (Restasis MultiDose) docusate sodium 100 mg capsule 100 mg PO BID #60 caps 07/27/22 08/02/24 Rx fenofibrate 54 mg tablet 52 mg (0.963 x 54 mg) PO QAM #90 08/30/22 08/02/24 Rx tabs nortriptyline 25 mg capsule See Rx Instructions .Route 09/30/22 08/02/24 Rx .COMPLEX #90 caps acetaminophen 650 mg 1,000 mg PO Q8H 09/12/23 08/02/24 History tablet,extended release (Tylenol 8 Hour) fluticasone 250 mcg-salmeterol 50 1 inh inhalation BID #60 ea 09/12/23 08/02/24 Rx mcg/dose blistr powdr for inhalation (Wixela Inhub) isosorbide mononitrate 30 mg 30 mg PO DAILY 09/12/23 08/02/24 History tablet,extended release 24 hr trazodone 100 mg tablet 100 mg PO HS #90 tabs 10/09/23 08/02/24 Rx omeprazole 40 mg capsule,delayed See Rx Instructions .Route 03/11/24 08/02/24 Rx release .COMPLEX #90 caps baclofen 5 mg tablet 5 mg PO TID #270 tabs 03/12/24 08/02/24 Rx oxybutynin chloride 10 mg 10 mg PO DAILY #90 tabs 03/12/24 08/02/24 Rx tablet,extended release 24 hr amlodipine 5 mg tablet (Norvasc) 5 mg PO DAILY #90 tabs 03/29/24 08/02/24 Rx cetirizine 10 mg tablet 5 mg PO DAILY 07/24/24 08/02/24 History metoprolol tartrate 50 mg tablet 25 mg PO BID 07/24/24 08/02/24 History psyllium husk (with sugar) 3.4 1 tsp PO QAM PRN constipation 07/24/24 07/24/24 History gram oral powder packet (Metamucil (with sugar)) gabapentin 300 mg capsule 900 mg (3 x 300 mg) PO TID #810 07/29/24 08/02/24 Rx caps Patient hx anesthesia problems: none Family hx anesthesia problems: none Results Review: All pre-operative results and documents have been reviewed as part of the pre-operative evaluation. 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 H/O gastroesophageal reflux (GERD) Glaucoma Osteoarthritis TIA (transient ischemic attack) Head and neck cancer History of tobacco abuse Obstructive sleep apnea Shingles Anemia Anxiety Depression Fracture vertebrae Arthritis BPH (benign prostatic hyperplasia) GERD (gastroesophageal reflux disease) Ulcer Diverticulitis Sleep apnea Pneumonia Bronchitis Asthma COPD (chronic obstructive pulmonary disease) Hyperlipidemia Hypertension CAD (coronary artery disease) Seasonal allergies Cataract History of throat cancer Surgical History Surgical History History of cataract surgery H/O Spinal surgery neck surgery with cage, lumbar dissection History of orthopedic surgery bilateral rotator cuff repair, sacroiliac joint surgery Hx of vasectomy History of head, eyes, ears, nose, and throat (HEENT) surgery vocal cord surgery H/O blepharoplasty bilateral History of biopsy throat Family History Family History Father Hypertension Family history of chronic obstructive pulmonary disease Family history of coronary artery disease Mother Hypertension Family history of malignant neoplasm of breast in first degree relative Family history of congestive heart failure Sibling Acute myocardial infarction Family history of cardiac disorder Family history of coronary artery disease Grandparent Cerebrovascular accident Parkinsons Social History Social History Smoking packs per day: 3 Smoking cigarettes per day: 60.0 Years smoked: 15 Smoking pack-years: 45.00 Smoking status: Former smoker Tobacco type: cigarettes Second hand tobacco smoke exposure: No Smoking end date: 02/20/83 Additional smoking assessment comments: QUIT 1984 Alcohol intake: current Drinks per week: 2 Alcohol use details: Beer Substance use: never Substance use type: does not use Other substance usage details: marijuana gummy for sleep at night Last use: 07/22/22 Lack of Transportation: No Lack of Food: Never True Current Housing: I Have Housing Concerned About Future Housing: No Difficulty Paying Gas/Electric Bills: No Difficulty Paying for Meds: No Currently Unemployed: No Education: Associate Degree Difficulty w/ Childcare or Family Care: No Living arrangements: with family Gender identity (if verbalized by the patient): Male Spiritual care concerns: No Anes - Eval Final PreProcedure Day of Procedure 08/02/24 10:45 Patient weight: overweight Heart: regular rate and rhythm Lungs: decreased breath sounds Airway: Mallampati scale class II Neurological: other (alert) Last oral intake: >/= 8 hours ASA classification: IV Emergent: no Anesthetic plan: proceed Anesthesia type and monitoring: general GIVS and standard monitoring Other findings: likely oral airway after asleep Results Review: All pre-operative results and documents have been reviewed as part of the pre-operative evaluation. Informed Consent: The patient's anesthetic plan and its attendant risks and benefits were discussed with the patient/family/POA. Questions were solicited and answers provided to the satisfaction of the patient/family/POA.
--- NOTE | 2024-08-02 10:50 | PM.IMHP ---
H&P: HPI History of Present Illness Date/Time: 08/02/24 10:50 Chief Complaint: Screening colonoscopy Narrative: This is the patient's 3rd colonoscopy, the last 1 was 10 years ago. There are no GI symptoms and there is no family history of colorectal cancer. 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 H/O gastroesophageal reflux (GERD) Glaucoma Osteoarthritis TIA (transient ischemic attack) Head and neck cancer History of tobacco abuse Obstructive sleep apnea Shingles Anemia Anxiety Depression Fracture vertebrae Arthritis BPH (benign prostatic hyperplasia) GERD (gastroesophageal reflux disease) Ulcer Diverticulitis Sleep apnea Pneumonia Bronchitis Asthma COPD (chronic obstructive pulmonary disease) Hyperlipidemia Hypertension CAD (coronary artery disease) Seasonal allergies Cataract History of throat cancer Surgical History Surgical History History of cataract surgery H/O Spinal surgery neck surgery with cage, lumbar dissection History of orthopedic surgery bilateral rotator cuff repair, sacroiliac joint surgery Hx of vasectomy History of head, eyes, ears, nose, and throat (HEENT) surgery vocal cord surgery H/O blepharoplasty bilateral History of biopsy throat Family History Family History Father Hypertension Family history of chronic obstructive pulmonary disease Family history of coronary artery disease Mother Hypertension Family history of malignant neoplasm of breast in first degree relative Family history of congestive heart failure Sibling Acute myocardial infarction Family history of cardiac disorder Family history of coronary artery disease Grandparent Cerebrovascular accident Parkinsons Social History Social History Smoking packs per day: 3 Smoking cigarettes per day: 60.0 Years smoked: 15 Smoking pack-years: 45.00 Smoking status: Former smoker Tobacco type: cigarettes Second hand tobacco smoke exposure: No Smoking end date: 02/20/83 Additional smoking assessment comments: QUIT 1983 Alcohol intake: current Drinks per week: 2 Alcohol use details: Beer Substance use: never Substance use type: does not use Other substance usage details: marijuana gummy for sleep at night Last use: 6/2/23 Lack of Transportation: No Lack of Food: Never True Current Housing: I Have Housing Concerned About Future Housing: No Difficulty Paying Gas/Electric Bills: No Difficulty Paying for Meds: No Currently Unemployed: No Education: Associate Degree Difficulty w/ Childcare or Family Care: No Living arrangements: with family Gender identity (if verbalized by the patient): Male Spiritual care concerns: No Meds Home Medications and Allergies Home Medications ?Medication ?Instructions ?Recorded ?Confirmed ?Type Fiber Supplement 1 cap PO QAM 01/06/19 08/02/24 History veknwfji-umuvvsdc-ezypv acid 400 1 tablet PO DAILY 01/06/19 08/02/24 History mcg-vit K 20 mcg-lycop 300 mcg tablet (Men's Multivitamin) losartan 50 mg tablet 50 mg PO DAILY 02/07/20 08/02/24 History albuterol sulfate 90 mcg/actuation 2 puff inhalation PRN PRN Wheezing 03/06/20 07/24/24 History aerosol inhaler (ProAir HFA) aspirin 81 mg tablet,delayed 81 mg PO DAILY 03/06/20 08/02/24 History release (Ginny Low Dose Aspirin) atorvastatin 40 mg tablet 80 mg PO QAM 08/12/20 08/02/24 History cyclosporine 0.05 % eye drops 1 drp EACH EYE Q12H 07/12/21 08/02/24 History (Restasis MultiDose) docusate sodium 100 mg capsule 100 mg PO BID #60 caps 07/27/22 08/02/24 Rx fenofibrate 54 mg tablet 52 mg (0.963 x 54 mg) PO QAM #90 08/30/22 08/02/24 Rx tabs nortriptyline 25 mg capsule See Rx Instructions .Route 09/30/22 08/02/24 Rx .COMPLEX #90 caps acetaminophen 650 mg 1,000 mg PO Q8H 09/12/23 08/02/24 History tablet,extended release (Tylenol 8 Hour) fluticasone 250 mcg-salmeterol 50 1 inh inhalation BID #60 ea 09/12/23 08/02/24 Rx mcg/dose blistr powdr for inhalation (Wixela Inhub) isosorbide mononitrate 30 mg 30 mg PO DAILY 09/12/23 08/02/24 History tablet,extended release 24 hr trazodone 100 mg tablet 100 mg PO HS #90 tabs 10/09/23 08/02/24 Rx omeprazole 40 mg capsule,delayed See Rx Instructions .Route 03/11/24 08/02/24 Rx release .COMPLEX #90 caps baclofen 5 mg tablet 5 mg PO TID #270 tabs 03/12/24 08/02/24 Rx oxybutynin chloride 10 mg 10 mg PO DAILY #90 tabs 03/12/24 08/02/24 Rx tablet,extended release 24 hr amlodipine 5 mg tablet (Norvasc) 5 mg PO DAILY #90 tabs 03/29/24 08/02/24 Rx cetirizine 10 mg tablet 5 mg PO DAILY 07/24/24 08/02/24 History metoprolol tartrate 50 mg tablet 25 mg PO BID 07/24/24 08/02/24 History psyllium husk (with sugar) 3.4 1 tsp PO QAM PRN constipation 07/24/24 07/24/24 History gram oral powder packet (Metamucil (with sugar)) gabapentin 300 mg capsule 900 mg (3 x 300 mg) PO TID #810 07/29/24 08/02/24 Rx caps Allergies Allergy/AdvReac Type Severity Reaction Status Date / Time iohexol (From Omnipaque) Allergy Severe Anaphylactic Verified 08/02/24 10:25 Shock lisinopril Allergy Severe Swelling Verified 08/02/24 10:25 of Lip/Tongue/Throat clotrimazole AdvReac Unknown Rash Verified 08/02/24 10:25 niacin AdvReac Unknown Rash Verified 08/02/24 10:25 Vital Signs Vital Signs - 24 hr 08/02/24 10:28 Temperature 97.2 F L Pulse Rate 50 L Respiratory Rate 18 Blood Pressure 136/92 H Pulse Oximetry 98 Oxygen Delivery Room Air Exam Const: General: cooperative and healthy appearing Resp: Effort & Inspection: normal respiratory effort and able to speak in complete sentences Auscultation: clear to auscultation bilaterally Cardio: Rate: regular rate Rhythm: regular rhythm GI: Inspection: normal to inspection GI Palp: No No hepatosplenomegaly present Auscultation: normal bowel sounds Rectal Exam: deferred Skin: General skin exam: normal color Psych: Appearance: grossly normal Mental Status: mental status grossly normal Assessment and Plan Assessment and plan (1) Encounter for screening colonoscopy: Code(s): Z12.11 - Encounter for screening for malignant neoplasm of colon Status: Acute Assessment and Plan: The patient is deemed a good candidate for the procedure. Consent signed. Will proceed.
[2024-08-02 11:20] VITALS: BP 118/78; PULSE 56; RESP 22; O2SAT 100
[2024-08-02 11:30] VITALS: BP 113/61; PULSE 50; RESP 14; O2SAT 100
[2024-08-02 11:40] VITALS: BP 154/83; PULSE 50; RESP 17; O2SAT 100
== END 2024-08-02 12:00 | disposition home or self-care (01) ==
PROVIDERS: PCP Internal Medicine; Referring Provider Internal Medicine; Visit Provider Internal Medicine Gastroenterology
PROC: 0DJD8ZZ Inspection of Lower Intestinal Tract, Via Natural or Artificial Opening Endoscopic (ICD-10-PCS; CPT 45378; principal; 2024-08-02 11:30)
DX: Z12.11 Encounter for screening for malignant neoplasm of colon (principal); K64.8 Other hemorrhoids; K57.30 Diverticulosis of large intestine without perforation or abscess without bleeding; E78.5 Hyperlipidemia, unspecified; I10 Essential (primary) hypertension; I25.10 Atherosclerotic heart disease of native coronary artery without angina pectoris; K21.9 Gastro-esophageal reflux disease without esophagitis; G47.33 Obstructive sleep apnea (adult) (pediatric); D64.9 Anemia, unspecified; F41.9 Anxiety disorder, unspecified; F32.A Depression, unspecified; N40.0 Benign prostatic hyperplasia without lower urinary tract symptoms; J44.9 Chronic obstructive pulmonary disease, unspecified; F12.90 Cannabis use, unspecified, uncomplicated; Z79.51 Long term (current) use of inhaled steroids; Z79.82 Long term (current) use of aspirin; Z98.890 Other specified postprocedural states; Z98.1 Arthrodesis status; Z87.891 Personal history of nicotine dependence; Z85.21 Personal history of malignant neoplasm of larynx; Z85.89 Personal history of malignant neoplasm of other organs and systems; Z87.19 Personal history of other diseases of the digestive system; Z86.73 Personal history of transient ischemic attack (TIA), and cerebral infarction without residual deficits; Z80.3 Family history of malignant neoplasm of breast; Z82.49 Family history of ischemic heart disease and other diseases of the circulatory system
CPT/HCPCS: G0105; J2003; J2704; J7120

== ENCOUNTER 2024-11-22 15:48 | Outpatient (CLI) | payer MEDICARE, SELFPAY ==
--- OUTSIDE RECORDS SUMMARY | 2001-01-29 04:00 | XMS_ITS | Continuity of Care Document ---
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 [address] [facility], [place], [address], [place]. tel: [phone] Family History Family Member Type Diagnosis Age At Onset No Information Payers Payer name Insurance type Covered democrat ID Authoriza tion(s) [employer] SOI CI [id number] Social History Type Description Quantity Date Captured Comments Sex Male Smoking Status No Information Chief Complaint And Reason For Visit No Information Reason For Referral Reason For Referral No Information History Of Present Illness Encounter Date Complaint History Of Prese nt Illness No Information Functional Status Date Functional Assessmen t No Information Instructions Date Instruction Additional Infor mation No Information Assessments Type Assessment Date No Information Patient Care Teams Name Effective Dates (start - stop) Status Members No Information
--- OUTSIDE RECORDS SUMMARY | 2024-11-22 15:51 | XMS_ITS | Encounter Summary ---
Author Organization [facility] Address [address] [place] [address] Care Team Providers Care Wad Blanking Press Adjuster Name Role Phone Unavailable Primary Care Provider Unavailabl e Encounter Details Date Type Department Care Team (Late st Contact Info) Description 10/24/2023 Telephone [facility] [place] [address] [place] [address] Ilia Barrett MD [address] [place] [address] Social History Tobacco Use Types Packs/Day [...]
--- OUTSIDE RECORDS SUMMARY | 2024-11-22 15:51 | XMS_ITS | Encounter Summary ---
Author Organization [facility] Address [address] [place] [address] Care Team Providers Care Abstract Searcher Name Role Phone Hitesh Esparza MD Primary Care Provider [phone] Maurice Johnson PhD Unavailable [phone] Charanjit Yanes MD Primary Care Provider [phone] Zackary Grider DO Primary Care Provider [phone] Encounter Details Date Type Department Care Team (Late st Contact Info) Description 06/13/2016 Orders Only [facility] ProviderMarie MD [address] [place] [address] Social History Tobacco Use Types Packs/Day Years Used Date Smoking Tobacco: Former Alcohol Use Standard Drinks/Week Comments Yes 0 (1 standard drink = 0.6 oz pur e alcohol) Sex and Gender Information Value Date Recorded Sex Assigned at Not on file 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 Gender Identity Male 02/03/2021 8:53 AM CHEESE MAKER Sexual Orientation Straight 08/05/2018 2: 16 PM [...] on filedocumented in this encounter Care Teams Abstract Searcher Relationship Specialty Start Date End Date Hitesh Esparza MD [address] [place] [address] PCP - General 03/23/15 02/16/20 Charanjit Yanes MD [address] [facility] [address] [facility] [address] [place] [address] PCP - General Internal Medicine 02/17/20 10/12/23 Zackary Grider DO [address] [facility] [address] [place] [address] PCP - General Internal Medicine 10/13/23 Maurice Johnson, PhD [address] [address] Referring Physician Speech Therapy 10/25/17 02/16/20 documented as of this encounter
--- OUTSIDE RECORDS SUMMARY | 2024-11-22 15:51 | XMS_ITS | Clinical Summary ---
Author Organization [facility] Medical Office [place] Address [address] [address] Care Team Providers Care Fleet Administrative Assistant Name Role Phone Unavailable Primary Care Provider Unavailabl e Allergies Active Allergy Reactions Criticality Noted Date Comments Maninder Inhibitors Angioedema High 01/10/2019 Clotrimazole Rash Medium 02/26/2013 Iodinated Contrast Media Angioedema High 01/17/2017 Omnipaque, IV contrast 12/20/16 at [facility] acute angioedema during CT scan Iohexol Angioedema [...] mg by mouth 2 times daily. Active -gziz -Lmfolate-algal 27 mg iron-1.13 mg-581.92 mg Capsule [...] S/P insertion of spinal cord stimulator 12/19/19 Need for prophylactic antibiotic 10/31/2023 Post-dural puncture headache 10/31/2023 Post laminectomy syndrome 09/05/2023 Encounters Date Type Department Care Team Description 10/22/2024 External Device Data STL ABSTRACTION Provider, Abstract 10/08/2024 External Device Data STL ABSTRACTION Provider, Abstract [...] 6 MONTHS 06/19/2017 12/20/2016 INFLUENZA VACCINE (#1) 2024 , 12/03/2018, 10/18/2017, Additional history exists DTAP/TDAP/TD VACCINES (3 - T d or Tdap) 09/09/2027 09/08/2017, 09/07/2017 ZOSTER VACCINE Completed 11/23/2017, 08/21, 09/11/2017, Additional history exists PNEUMOCOCCAL VACCINE 50+ YEARS Completed 1 03/20/2018, 09/08/2017, 09/07/2017, Additional history exists Medical Devices Implanted Type Area Stable Hand Device Identifier Shelf Expiration Date Model / Serial / Lot Cage Cage Throat Description:r/t radiation; t hroat surgery with titanium to neck Hip Hip Description:and SI joint has been fused on the left Lead Vectris 1x8 60cm Trial [facility] [id number] - [id number] Implanted:Qty: 1 on 09/28/2023 by Ilia Barrett MD at [facility] Lead N/A: Spine Lumbar MEDTRONIC- NEUROLOGIC TECH 06/29/2027 [id number] / / [id number] Lead Vectris 1x8 60cm Trial [facility] [id number] - [id number] Implanted:Qty: 1 on 09/28/2023 by Ilia Barrett MD at [facility] Lead N/A: Spine Lumbar [employer]- NEUROLOGIC TECH 08/14/2027 [id number] / / [id number] Description:no charge item p art of kit/bundle per rep Lead Surescan Vectris Mri [id number] - [id number] Implanted:Qty: 1 on 10/20/2023 by Ilia Barrett MD at [facility] Lead N/A: Back [employer]TRONIC- NEUROLOGIC TECH 03/21/2027 [id number] / / [id number] Lead Surescan Vectris Mri [id number] - [id number] Implanted:Qty: 1 on 10/20/2023 by Ilia Barrett MD at [facility] Lead N/A: Back [employer]- NEUROLOGIC TECH 04/20/2027 [id number] / / [id number] [place] Injex Bi-Wing [id number] - [id number] Implanted:Qty: 1 on 10/20/2023 by Ilia Barrett MD at [facility] Other N/A: Back [employer]- NEUROLOGIC TECH 09/04/2027 [id number] / / [id number] Cervical Fusion Kit Intellis Trial Lead 1 Implanted:Qty: 1 on 09/28/2023 by Ilia Barrett MD at [facility] N/A: Spine Lumbar [employer] INTELTRIAL 1 / / Implantable Pulse Generator Implanted:Qty: 1 on 10/20/2023 by Ilia Barrett MD at [facility] N/A: Back [employer]TR[employer] INC 08/17/2024 [id number] / / [id number] Insurance RX [employer] RX Member Subscriber Plan / Payer (Ef fective 2023-Present) Name:Daryl Hay Relation to Subscriber:Self Name:Daryl Hay Payer ID:Not on file Group ID:[id number] Type:RX Medicare Part D Address: [place] [employer] [place] PL[employer] (INTERNAL) [facility] Advance Directives For more information, please contact: [phone] * Full Code (Latest Code Status on File) Date Activated Date Inactivated Comments 10/20/2023 1:49 PM 10/20/2023 8:08 PM * Full Code Date Activated Date Inactivated Comments 10/20/2023 11:05 AM 10/20/2023 1:49 PM
--- OUTSIDE RECORDS SUMMARY | 2024-11-22 15:51 | XMS_ITS | Encounter Summary ---
Author Organization [facility] Healthcare Address [address] [place] [address] Care Team Providers Care Telex Operator Name Role Phone Charanjit Yanes MD Primary Care Provider [phone] Zackary Grider DO Primary Care Provider [phone] Reason for Visit * Reason Onset Date Comments question 02/01/2022 Encounter Details Date Type Department Care Team (Late st Contact Info) Description 02/01/2022 Telephone [facility] [place] [facility] [address] [facility] [address] [place] [id number] Ilia Barrett MD PhD [address] [facility] [address] [facility] [address] [place] [address] question Social History Tobacco Use Types Packs/Day Years Used Date Smoking Tobacco: Former Cigarettes 2 25 1 960 - 1984 Smokeless Tobacco: Never Alcohol Use Standard Drinks/Week Comments Yes 15 (1 standard drink = 0.6 oz pu re alcohol) Social Connection and Isolation Panel Answer Date Recorded In a typical week, how many times do you talk on the phone with family, friends, or neighbors? More than three times a week 06/24/2020 How often do you get togethe r with friends or relatives? Twice a week 06/24/2020 How often do you attend chur ch or baptist services? 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
--- OUTSIDE RECORDS SUMMARY | 2024-11-22 15:51 | XMS_ITS | Encounter Summary ---
Author Organization [facility] Healthcare Address [address] [place] [address] Care Team Providers Care Insurance Solicitor Name Role Phone Charanjit Yanes MD Primary Care Provider [phone] Zackary Grider DO Primary Care Provider [phone] Encounter Details Date Type Department Care Team (Late st Contact Info) Description 06/22/2022 Telephone [facility] [place] [facility] [address] [facility] [address] [place] [address] Ilia Barrett MD PhD [address] [place] [address] Social History Tobacco Use Types Packs/Day Years [...] often do you attend chur ch or jainism services? Never 06/24/2020 Do you belong to any clubs o r organizations such as hindu groups, unions, fraternal or athletic groups, or [...] place to sleep or slept in a [facility] (including now)? 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 Minimize further functional decline 2. Maximize quality of life 3. Control pain Strategies: - Activity/exercise program recommendation - Conservative stepwise pain medicine strategy with multi-disciplinary approach - Recommend healthy lifestyle strategies and compensatory methods as needed documented as of this encounter Visit Diagnoses Not on filedocumented in this encounter Care Teams Insurance Solicitor Relationship Specialty Start Date End Date Charanjit Yanes MD [address] [facility] [address] [place] [address] PCP - General Internal Medicine 02/17/20 10/12/23 Zackary Grider DO [address] [place] [address] PCP - General Internal Medicine 10/13/23 documented as of this encounter
--- OUTSIDE RECORDS SUMMARY | 2024-11-22 15:51 | XMS_ITS | Clinical Summary ---
Author Organization [facility] Address [address] [facility] [place] [address] Care Team Providers Care Security Auditor Name Role Phone Hitesh Esparza MD Primary Care Provider [phone] Anne Lawson RN Unavailable Source Comments [facility],non-owned Affiliates and Associated Physician Practices is amultiple site organization consisting of ambulatory clinics and hospital sitesin [place], [place], [place] and [place]. This disclosure is being madepursuant to the Care Everywhere program and may not contain all information available regarding this patient. 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 Not on file [...] 12/25/2019 7, 12/23/2016, 12/22/2016, Additional history exists DEPRESSION SCREENING 02/21/2024 COVID-19 VACCINE ( season) 2024 INFLUENZA VACCINE (#1) 2024 Respiratory Syncytial Virus (RSV) Vaccine Pt: [...] this topic Medical Devices Implanted Type Area Chief Operator Reformer Device Identifier Shelf Expiration Date Model / Serial / Lot Si-Bone Fusion Geo 7.0mm X 50mm Implanted:Qty: 1 on 07/12/2013 by Shlomo Donato MD at [facility] 03/21/2018 [id number] / / [id number] Si- Bone Fusion Geo 7.0mm X 50mm Implanted:Qty: 1 on 07/12/2013 by Shlomo Donato MD at [facility] 03/22/2018 7050-90 / / [id number] Si-Bone Ifuse Implant System 7.0mm X 50mm Implanted:Qty: 1 on 07/12/2013 by Shlomo Donato MD at [facility] 03/21/2018 7050-90 / / [id number] Procedures Procedure Name Priority Date/Time Associated Diagnosis Comments BASIC METABOLIC PANEL (CALCIUM TOTAL) Routine 12/24/2016 3:52 AM CDT from Last 3 Months or Most Recently Relevant to Health Maintenance Results * BASIC METABOLIC PANEL (CALCIUM TOTAL) (12/24/2016 3:52 AM CDT) BUN 19 7 - 26 mg/dL [facility] Creatinine 0.9 0.6 - 1.2 mg/dL [facility] Sodium 139 136 - 145 mmol/L [facility] Potassium 4.1 3.5 - 4.5 mmol/L [facility] Chloride 103 98 - 107 mmol/L [facility] CO2 27 22 - 29 mmol/L [facility] Glucose 102 70 - 115 mg/dL [facility] Calcium 9.7 8.4 - 10.2 mg/dL [facility] Anion Gap 13 8 - 18 [facility] BUN/Creatinine Ratio 21 7 - 23 [facility] Osmolality Calculated 290 270 - 300 mOsm/kg [facility] eGFR >60 >60 mL/min/1.7 3 m2 [facility] Blood specimen (specimen) BLOOD SPECIMEN / Unknown 12/24/2016 3:52 AM CDT 12/24/2016 4:02 AM CDT us Peg Maher MD LAB - CHEMISTRY ORDERABLES Fin al Result [facility] [address] [phone] from Last 3 Months or Most Recently Relevant to Health Maintenance Insurance MEDICARE [facility] MEDICARE Advance Directives * Full Code (Latest Code Status on File) Date Activated Date Inactivated Comments 07/16/2013 8:08 AM 07/17/2013 10:47 AM * Full Code Date Activated Date Inactivated Comments 07/12/2013 12:13 PM 07/16/2013 8:08 AM Care Teams Security Auditor Relationship Specialty Start Date End Date Hitesh Esparza MD [address] [place] [address] PCP - General Family Medicine 02/26/13 Anne Lawson RN Selling Specialist 07/16/13
--- OUTSIDE RECORDS SUMMARY | 2024-11-22 15:51 | XMS_ITS | Clinical Summary ---
Author Organization [facility] [address] Address [address] [place] [address] Care Team Providers Care Integration Architect Name Role Phone Zackary Grider DO Primary Care Provider [phone] Allergies Active Allergy Reactions Criticality Noted Date Comments Maninder Inhibitors Angioedema High 05/29/2020 Clotrimazole Rash Medium 02/26/2013 Iodinated Contrast Media Angioedema High 01/17/2017 Omnipaque, IV contrast 12/20/16 at [facility] acute angioedema during CT scan Lisinopril Angioedema High 01/10/2019 Niacin Rash Medium 02/26/2013 Medications traZODone (DESYREL) 100 mg tablet take 1 tablet by oral route every day 0 0 01/14/20 15 Active Additional Information Patient taking differently:100 mgoral Nightly, Indications: insomnia associated with depression, Reported on 10/17/2024 albuterol HFA (PROAIR HFA) 90 mcg/actuation inhaler inhale 2 puff by inhalation route every 4 - 6 hours as needed 0 Inhaler 0 01/14/20 15 Active omeprazole (PriLOSEC) 40 mg capsuleIndication s:gerd Take 1 capsule (40 mg total) by mouth nightly Active fluticasone propion-salmetero l (ADVAIR DISKUS) 250-50 mcg/dose diskus inhaler Inhale 1 puff 2 (two) times a day Rinse mouth with water after use. Do not swallow. Active oxybutynin XL (DITROPAN-XL) 10 mg 24 hr tabletIndications :Increased Urinary Frequency Take 1 tablet (10 mg total) by mouth daily before dinner Takes at 1500. 10/20/19 20 Active acetaminophen (TYLENOL) 500 mg tablet Take 2 tablets (1,000 mg total) by mouth 3 (three) times a day 07/07/19 21 Active FIBER, DEXTRIN, ORAL Take by mouth Active cclgbtju01-wvub-M mfolate-algal 27 mg iron-1.13 mg-581.92 mg capsule Take by mouth Active cetirizine HCl (CETIRIZINE ORAL) Take 10 mg by mouth daily Zrytec-D 5-120mg Active gabapentin (NEURONTIN) 300 mg capsule Take 3 capsules (900 mg total) by mouth 3 (three) times a day 03/25/19 23 Active cycloSPORINE (RESTASIS) 0.05 % ophthalmic emulsion Administer 1 drop into both eyes 2 (two) times a day Active aspirin 81 mg enteric coated tablet Take 1 tablet (81 mg total) by mouth daily Active baclofen (LIORESAL) 5 mg tabletIndications :Muscle Spasticity of Spinal Origin Take 1 tablet (5 mg total) by mouth 3 (three) times a day 270 tablet 2 02/07/20 23 Active nortriptyline (PAMELOR) 25 mg capsuleIndication s:Lumbar radiculopathy Take 1 capsule (25 mg total) by mouth nightly 90 capsule 3 04/03/19 24 Active Additional Information Patient taking differently: 50 mgoral Nightly, Reported on 10/17/2024 isosorbide mononitrate ER (IMDUR) 60 mg 24 hr tablet Take 0.5 tablets (30 mg total) by mouth daily 45 tablet 3 06/01/19 25 Active ezetimibe (ZETIA) 10 mg tablet TAKE 1 TABLET BY MOUTH EVERY DAY 90 tablet 1 06/18/19 25 Active fenofibrate (TRICOR) 54 mg tablet TAKE 1 TABLET BY MOUTH DAILY 90 tablet 2 08/14/19 25 Active metoprolol tartrate (LOPRESSOR) 25 mg immediate release tablet Take 0.5 tablets (12.5 mg total) by mouth 2 (two) times a day Active losartan (COZAAR) 25 mg tabletIndications :Labile hypertension Take 1 tablet (25 mg total) by mouth daily 90 tablet 3 10/18/19 25 026 Active atorvastatin (LIPITOR) 80 mg tablet Take 1 tablet (80 mg total) by mouth daily 90 tablet 2 11/01/19 25 Active atorvastatin (LIPITOR) 80 mg tablet TAKE 1 TABLET BY MOUTH EVERY DAY 90 tablet 2 11/27/19 24 025 Discontin ued(Reord er) Active Problems Problem Noted Date Diagnosed Date [...] (04/27/2020): Added automatically from request for surgery [id number] Pain of left lower extremity 03/27/2020 Left hip pain 03/27/2020 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 No diagnosis on [place] I 03/24/2020 Other chronic pain 03/24/2020 Anxiety disorder 03/24/2020 Functional hemiparesis 01/27/2020 Assessment & Plan (02/27/2023 7:26 AM SURVEY INSTRUMENT OPERATOR): There was no evidence of a primary [...] Anemia 05/25/2017 Coronary artery disease invo lving tlingit & haida coronary artery of tlingit & haida heart without angina pectoris 01/17/2017 Allergic to IV contrast 01/17/2017 Edema of larynx 10/26/2016 Preoperative state 06/21/2016 Overview (07/15/2016): Preoperative cardiovascular examination History of malignant neoplasm of larynx 03/25/19 16 Dysphonia 03/25/2015 Mixed diabetic hyperlipidemi a associated with type 2 diabetes mellitus ([facility]) 03/23/2015 Overview (05/27/2016): DM type 2 with [...] Encounters Date Type Department Care Team Description 10/17/2024 11:00 AM CDT Office Visit [facility] Medical [facility] Cardiology [address] [place] [address] Nyla Pearson NP Coronary artery disease involving tlingit & haida coronary artery of tlingit & haida heart without angina pectoris; Mixed diabetic hyperlipidemia associated with type 2 diabetes mellitus (CMS/HCC) ([facility]); Labile hypertension; ARINA on CPAP 10/17/[address] [facility] Cardiology [address] [place] [address] Elmira Matos MA Old Cath Report Requested from Last 3 Months Immunizations Immunization Administration [...] History Date Comments Asthma Asthma; Comments : [facility] 01/13/2015 - Malignant neoplasm of larynx Can cer, throat; Comments: [facility] 01/13/2015 - Sleep apnea Sleep apnea; Com ments: [facility] 01/13/2015 - GERD (gastroesophageal reflux disease) Arthritis Benign prostatic hyperplasia Cataract Depression Hypertension Emphysema of lung Hypercholesteremia Obesity Allergic rhinitis Osteoarthritis Spinal stenosis Diverticulitis Low back pain Joint pain Osteoporosis Heart disease Neuromuscular disorder Low back pain Low back pain Mild [...] often do you attend chur ch or jew services? Never 06/24/2020 Do you belong to any clubs o r organizations such as catholic groups, unions, fraternal or athletic groups, or [...] place to sleep or slept in a penitentiary (including now)? No 06/24/2020 Sex and Gender Information Value Date Recorded Sex Assigned at Not on file Legal Sex Male 3:05 AM SURVEY INSTRUMENT OPERATOR Gender Identity Male 02/03/2021 8:53 AM SURVEY INSTRUMENT OPERATOR Sexual Orientation Straight 08/05/2018 2: 16 PM CDT Occupation Industry Job Start Date Job End Date retired Not on file Not on file Not on file Obstetrics History Last Filed Vital Signs Vital Sign Reading Time Taken Comments Blood Pressure 118/64 10/17/2024 10:59 AM CDT Pulse 58 10/17/2024 10:59 AM CDT Temperature 36.2 C (97.1 F) 06/28/2023 11:42 AM CDT Respiratory Rate 18 06/28/2023 11:4 2 AM CDT Oxygen Saturation 97% 10/17/2024 10: 59 AM CDT Inhaled Oxygen Concentration - - Weight 97.5 kg (214 lb 14.4 oz) 025 10:59 AM CDT Height 182.9 cm (6') 10/17/2024 10:59 AM CDT Body Mass Index 29.15 10/17/2024 10:59 AM CDT Plan of Treatment Health Maintenance Due [...] 11/15/2023 11/14/2022 Dilated Eye Exam 12/01/2023 11/30/2022 Covid-19 Vaccine (2024-2 6 season) 2024 06/04/2021, 12/17/2020, 04/28/2020, Additional history exists Influenza Vaccine (#1) 2024 , 12/03/2018, 10/18/2017, Additional history exists Lipid Panel 10/17/2025 10/17/2024, 08/20, 04/05/2023, Additional history exists DTaP/Tdap/Td Vaccine (3 - Td or Tdap) 09/09/2027 09/08/2017, 09/07/2017 Zoster Vaccine Completed 11/23/2017, 08/21, 09/11/2017, Additional history exists Pneumococcal vaccine 65+ Completed 019, 12/21/2018, 09/08/2017, Additional history exists Goals Goal Patient Goal [...] as needed Medical Devices Implanted Type Area Fha Underwriter Device Identifier Shelf Expiration Date Model / Serial / Lot Titanium Si Joint Sacrum Cage & Screws In Ncek Neck [employer] [id number] 58mm Limit 4 Hole Hip G Hemisphere Offset Shell Acetabular - [id number] Implanted:Qty: 1 on 06/23/2020 by Zach Sena MD at [facility] Left: Hip [employer] [id number] 07/27/2029 [id number] / / [id number] [employer] [id number] 40mm Lumen Hip G Liner Acetabular Longevity Sterile Latex Free - [id number] Implanted:Qty: 1 on 06/23/2020 by Zach Sena MD at [facility] Left: Hip [employer] [id number] 11/20/[id number] / / [id number] [employer] [id number] Taperloc 154mm Type 1 Press Fit Reduce Hip 133d 17 High Offset - [id number] Implanted:Qty: 1 on 06/23/2020 by Zach Sena MD at [facility] Left: Hip [employer] [id number] 04/24/2029 [id number] / / [id number] [employer] 650-1067 G7 Type 1 Hip +3mm Offset Taper Sleeve Centering Titanium Biolox - [id number] Implanted:Qty: 1 on 06/23/2020 by Zach Sena MD at [facility] Left: Hip [employer] 07/04/2029 [id number] / / [id number] [employer] 650-1058 G7 40mm Hip Head Femoral Biolox Delta Biolox Option - [id number] Implanted:Qty: 1 on 06/23/2020 by Zach Sena MD at [facility] Left: Hip [employer] 12/10/2029 [id number] / / [id number] Procedures Procedure Name Priority Date/Time Associated Diagnosis Comments POCT LIPID PANEL Routine 10/17/2024 10:5 2 AM CDT Coronary artery disease involving tlingit & haida coronary artery of tlingit & haida heart without angina pectoris BASIC METABOLIC PANEL Routine 06/15/2020 9:53 AM CDT from Last 3 Months or Most Recently Relevant to Health Maintenance Results * POCT lipid panel (10/17/2024 10:52 AM CDT) Cholesterol, POC 113 <200 MG/DL HDL, POC 58 >=40 mg/dL Triglycerides, POC 81 <=149 mg/dL LDL Cholesterol POC 39 <=129 mg/dL Chol/HDL Ratio, POC 0.7 NONE Non-HDL Cholesterol, POC 56 NONE mg/dL Cholesterol Total, POC 113 30 - 199 mg/dL Capillary blood 10/17/2024 1 0:52 AM CDT Nyla Pearson NP POINT OF CARE TEST ORDERA BLES Final Result * (ABNORMAL) Basic metabolic panel (06/15/2020 9:53 [...] 5:07 AM CDT Performed at: - [facility] [address] [id number] Program/Music Director: Kurt Ly PhD, Phone: [phone] Tucker Rai MD LAB BLOOD ORDERABLES Fin al Result [facility] - 01 from Last 3 Months or Most Recently Relevant to Health Maintenance Insurance [facility] MEDICARE [facility] MEDICARE ADVANTAGE [facility] MEDICARE ADVANTAGE Advance Directives For more information, please contact: [phone] Documents on File Type Date Recorded Patient Automobile Rental Representative Expl anation ADVANCE DIRECTIVE 01/10/2019 10:53 AM [facility] er of [employer] T[employer] * Full Code (Latest Code Status on File) Date Activated Date Inactivated Comments 06/23/2020 6:12 PM 06/25/2020 8:07 PM Care Teams Integration Architect Relationship Specialty Start Date End Date Zackary Grider DO PCP - General Internal Medicine 10/13/23
--- OUTSIDE RECORDS SUMMARY | 2024-11-22 15:51 | XMS_ITS | Encounter Summary ---
Author Organization [facility] Address [address] [place] [address] Care Team Providers Care Supervisor Files Name Role Phone Hitesh Esparza MD Primary Care Provider [phone] Anne Lawson RN Unavailable [phone] Encounter Details Date Type Department Care Team (Late st Contact Info) Description 07/19/2013 Therapy Visit EXTERNAL NON-[facility] DEPT Unknown, Provider Social History Tobacco Use Types Packs/Day Years Used Date Smoking Tobacco: Former Cigarettes 2 16 0 02/21/1976 - 02/21/1992 Smokeless Tobacco: Never Alcohol Use Standard Drinks/Week Comments Yes 11.7 (1 standard drink = 0.6 oz pure alcohol) Sex and Gender Information Value Date Recorded Sex Assigned at Not on file Legal Sex Male 3:18 PM FUSION JUNCTURE 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
--- OUTSIDE RECORDS SUMMARY | 2024-11-22 15:51 | XMS_ITS | Encounter Summary ---
Author Organization [facility] Healthcare Address [address] [place] [address] Care Team Providers Care Dance Historian Name Role Phone Charanjit Yanes MD Primary Care Provider [phone] Zackary Grider DO Primary Care Provider [phone] Encounter Details Date Type Department Care Team (Late st Contact Info) Description 02/28/2020 Telephone [facility] Radiology [address] [place] [address] Terrence Hernandez MD PhD [address] [place], [place] [id number] Social History Tobacco Use Types Packs/Day Years Used Date Smoking Tobacco: Former Cigarettes 2 25 Smokeless Tobacco: Never Alcohol Use Standard Drinks/Week Comments Yes 15 (1 standard drink = 0.6 oz pu re alcohol) Sex and Gender Information Value Date Recorded Sex Assigned at Not on file Legal Sex Male 3:05 AM DIRECT MARKETING SPECIALIST Gender Identity Male 02/03/2021 8:53 AM DIRECT MARKETING SPECIALIST Sexual Orientation Straight 08/05/2018 2: 16 PM CDT Occupation Industry Job Start Date Job End Date retired Not on file Not on file Not on file documented as of this encounter Plan of Treatment Not on file documented as of this encounter Visit Diagnoses Not on filedocumented in this encounter Care Teams Dance Historian Relationship Specialty Start Date End Date Charanjit Yanes MD [address] [address] PCP - General Internal Medicine 02/17/20 10/12/23 Zackary Grider DO [address] [address] PCP - General Internal Medicine 10/13/23 documented as of this encounter
--- OUTSIDE RECORDS SUMMARY | 2024-11-22 15:53 | XMS_ITS | Encounter Summary ---
Author Organization [facility] Health Address [address] [place] [address] Care Team Providers Care Cinder Dump Crane Operator Name Role Phone Hitesh Esparza MD Primary Care Provider [phone] Anne Lawson RN Unavailable [phone] Encounter Details Date Type Department Care Team (Late st Contact Info) Description 04/29/2013 Therapy Visit EXTERNAL NON-[facility] [place] [place] [address] [place] [address] Social History Tobacco Use Types Packs/Day Years Used Date Smoking Tobacco: Former Smokeless Tobacco: Never Alcohol Use Standard Drinks/Week Comments Yes 0 (1 standard drink = 0.6 oz pur e alcohol) 2 drinks per day Sex and Gender Information Value Date Recorded Sex Assigned at Not on file Legal Sex Male 3:18 PM AIR POLLUTION CONTROL ENGINEER Gender Identity Not on file Sexual Orientation Not on file 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
[2024-11-23 15:09] LABS: Calcium, Ionized 5.7 mg/dL (4.5-5.6)
== END 2024-11-22 15:49 | disposition home or self-care (01) ==
PROVIDERS: PCP Internal Medicine; Visit Provider Internal Medicine
DX: E83.52 Hypercalcemia (principal)
CPT/HCPCS: 82330

== ENCOUNTER 2024-11-27 09:52 | Inpatient (IN) | payer MEDICARE, SELFPAY ==
--- NOTE | ~2024-11-27 | CT_ITS ---
CT ABDOMEN AND PELVIS WITHOUT CONTRAST Clinical History: ab pain, urinary tension, constipation Comparison: CT abdomen pelvis 01/28/2019 Technique: Unenhanced axial images lung bases to symphysis pubis Coronal, sagittal reformats CT images acquired with automatic exposure control for dose reduction DLP: 783 mGy-cm Findings: Without intravenous contrast, sensitivity for detecting visceral parenchymal abnormalities decreased. Lung bases: Clear. Visualized heart and pericardium: Unremarkable. Liver: Unremarkable. Gallbladder: Unremarkable. Spleen: Unremarkable. Pancreas: Unremarkable. Adrenal glands: Unremarkable. Kidneys: Chronic bilateral perinephric stranding Right kidney- No hydronephrosis. No definite renal stones. Small calcification appears vascular. Enlarging exophytic simple cysts. Left kidney- No hydronephrosis. No renal stones. Enlarging simple exophytic cyst. Distal esophagus/stomach: Unremarkable. Small bowel loops: Normal caliber and wall thickness. Colon: Diverticula. Normal caliber and wall thickness. Normal RLQ appendix. Rectum filled with stool. Moderate volume colonic stool. Nodes: No enlarged nodes. Peritoneum: No ascites. No free intraperitoneal air. Urinary bladder: A few intraluminal gas locules. Prostate: Unremarkable. Presacral stranding. Bones: No acute bony abnormality. Soft tissues: Unremarkable. Unopacified abdominal aorta: No aneurysmal dilatation. Atherosclerotic disease. IMPRESSION: 1. Stercoral colitis. 2. Probable constipation. Reviewed, dictated and finalized at location R.
[2024-11-27 10:00] VITALS: BP 148/88; PULSE 66; RESP 15; TEMP 36.4; O2SAT 98
[2024-11-27 10:31] LABS: Hematocrit 37.8 % (42.0-52.0); Hemoglobin 12.2 g/dL (14.0-18.0); Immature Granulocyte Percent A 0.3 % (0-0.5); Lymphocytes Absolute Auto 0.82 K/mm3 (0.9-3.2); Mean Corpuscular HGB Conc 32.3 g/dl (32-36); Mean Corpuscular Hemoglobin 30.6 pg (26-34); Mean Corpuscular Volume 94.7 fl (80-100); Nucleated Red Blood Cells Absolute Auto 0.000 K/mm3 (0.0-0.012); Nucleated Red Blood Cells Perc 0.0 % (0.0-0.2); Platelet Count Result 191 k/mm3 (150-375); Red Blood Count 3.99 M/mm3 (4.6-6.20); White Blood Count 3.4 K/mm3 (4.5-10.0)
[2024-11-27] MEDS: LIDOCAINE 2% GEL UROJET 10 ML PKG (10:39)
[2024-11-27] MEDS: HYDROmorphone HCL INJ (*CRX) 1 MG/ML SYR 0.5 MG IV PUSH ×2 (10:39→11:34)
[2024-11-27 10:42] VITALS: BP 147/83; PULSE 63; RESP 16; O2SAT 95
[2024-11-27 10:44] LABS: Alanine Aminotransferase 41 U/L (6-50); Albumin Level 4.4 g/dL (3.5-5.1); Alkaline Phosphatase 39 U/L (38-126); Anion Gap 6 mmol/L (4-12); Aspartate Amino Transferase 54 U/L (17-59); Bilirubin,Total 0.8 mg/dL (0.2-1.3); Blood Urea Nitrogen 21 mg/dL (9-20); Calcium 10.7 mg/dL (8.4-10.2); Carbon Dioxide 30 mmol/L (22-30); Chloride 100 mmol/L (98-107); Estimated CRCL calculation 61 ml/min; Estimated Glomerular Filt Rate > 60; Glucose 135 mg/dL (65-110); Lipase 68 U/L (23-300); Potassium 4.0 mmol/L (3.4-5.0); Sodium 136 mmol/L (137-145); Total Protein 6.9 g/dL (6.3-8.2)
--- NOTE | 2024-11-27 10:52 | ED_ITS ---
HPI - General Adult General Chief complaint: Abdominal Pain Stated complaint: constipated, in pain Time Seen by Provider: 11/27/24 10:19 History of Present Illness HPI narrative: 74 old male a presented to the emergency department for evaluation for constipation for the last 5 days and urinary retention. Patient does complain of diffuse abdominal pain. Patient does have prior history of diverticulitis. Patient states that he has been taking multiple doses of Senokot and MiraLax with no significant improvement. Patient arrives to the emergency department uncomfortable appearing. Patient does have prior history of diverticulitis. Related Data Home Medications ?Medication ?Instructions ?Recorded ?Confirmed ?Last Taken ?Type Fiber Supplement 1 cap PO QAM 01/06/1907/31/24 History syoygihw-zruwnxes-idumn acid 400 1 tablet PO DAILY 09/18/24 08/01/24 History mcg-vit K 20 mcg-lycop 300 mcg tablet (Men's Multivitamin) losartan 50 mg tablet 50 mg PO DAILY 02/07/2008/2208/01/24 History albuterol sulfate 90 mcg/actuation 2 puff inhalation P RN PRN Wheezing 03/06/20 09/18/24 03/17/20 08:30 History aerosol inhaler (ProAir HFA) aspirin 81 mg tablet,delayed 81 mg PO DAILY 03/06/20 0 09/18/24 08/01/24 History release (Ginny Low Dose Aspirin) atorvastatin 40 mg tablet 80 mg PO QAM 08/12/2008/01/24 History cyclosporine 0.05 % eye drops 1 drp EACH EYE Q12H 06/2109/18/24 08/01/24 History (Restasis MultiDose) isosorbide mononitrate 30 mg 30 mg PO DAILY 09/12/23 0 09/18/24 08/01/24 History tablet,extended release 24 hr cetirizine 10 mg tablet 5 mg PO DAILY 07/24/2409/1808/01/24 History psyllium husk (with sugar) 3.4 1 tsp PO QAM PRN consti pation 07/24/24 09/18/24 Unknown History gram oral powder packet (Metamucil (with sugar)) CoQ10 PO DAILY 09/18/24 09/18/24 U nknown History acetaminophen 650 mg 1,000 mg PO TID 09/18/24 Unknown History tablet,extended release (Tylenol 8 Hour) ezetimibe 10 mg tablet 10 mg PO DAILY 09/18/2408/22 Unknown History Allergies Allergy/AdvReac Type Severity Reaction Status Date / Time iohexol (From Omnipaque) Allergy Severe Anaphylactic Verified 09/18/24 12:54 Shock lisinopril Allergy Severe Swelling Verified 09/18/24 12:54 of Lip/Tongue/Throat clotrimazole AdvReac Unknown Rash Verified 09/18/24 12:54 niacin AdvReac Unknown Rash Verified 09/18/24 12:54 Review of Systems 2 Review of Systems: All systems reviewed & are unremarkable except as noted in HPI and below PMFSH Past Medical History Medical History (Updated 11/27/24 @ 18:31 by Luis Thomas MD) Uncontrolled hypertension 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 H/O gastroesophageal reflux (GERD) Glaucoma Osteoarthritis TIA (transient ischemic attack) Head and neck cancer History of tobacco abuse Obstructive sleep apnea Shingles Anemia Anxiety Depression Fracture vertebrae Arthritis BPH (benign prostatic hyperplasia) GERD (gastroesophageal reflux disease) Ulcer Diverticulitis Sleep apnea Pneumonia Bronchitis Asthma COPD (chronic obstructive pulmonary disease) Hyperlipidemia Hypertension CAD (coronary artery disease) Seasonal allergies Cataract History of throat cancer Surgical History Surgical History History of cataract surgery H/O Spinal surgery neck surgery with cage, lumbar dissection History of orthopedic surgery bilateral rotator cuff repair, sacroiliac joint surgery Hx of vasectomy History of head, eyes, ears, nose, and throat (HEENT) surgery vocal cord surgery H/O blepharoplasty bilateral History of biopsy throat Family History Family History Father Hypertension Family history of chronic obstructive pulmonary disease Family history of coronary artery disease Mother Hypertension Family history of malignant neoplasm of breast in first degree relative Family history of congestive heart failure Sibling Acute myocardial infarction Family history of cardiac disorder Family history of coronary artery disease Grandparent Cerebrovascular accident Parkinsons Social History Social History (Updated 09/18/24 @ 12:[address] [facility]) Smoking packs per day: 3 Smoking cigarettes per day: 60.0 Years smoked: 15 Smoking pack-years: 45.00 Smoking status: Former smoker Tobacco type: cigarettes Second hand tobacco smoke exposure: No Smoking end date: 02/20/83 Additional smoking assessment comments: QUIT 1984 Alcohol intake: current Drinks per week: 2 Alcohol use details: Beer Substance use: never Substance use type: does not use Other substance usage details: marijuana gummy for sleep at night Last use: 07/22/22 Do You Feel Safe in your Home?: Yes Lack of Transportation: No Lack of Food: Never True Current Housing: I Have Housing Concerned About Future Housing: No Difficulty Paying Gas/Electric Bills: No Difficulty Paying for Meds: No Currently Unemployed: No Education: Associate Degree Difficulty w/ Childcare or Family Care: No Living arrangements: with family Gender identity (if verbalized by the patient): Male Spiritual care concerns: No Exam 2 Narrative: APPEARANCE: Uncomfortable. HEAD: normocephalic, atraumatic. EYES: PERRLA/EOMI, conjunctivae clear. NOSE: Normal no drainage EARS:TMS clear with good light reflex. THROAT: Pharynx clear, no exudate. NECK: Supple. No adenopathy, no masses. RESPIRATORY: Airway patent, respirations nonlabored. Clear to auscultation bilaterally, no rales, rhonchi, wheezing. CARDIOVASCULAR: Regular rate and rhythm without murmurs rubs or gallops. ABDOMINAL: Decreased bowel sounds, diffuse abdominal tenderness to palpation MUSCULOSKELETAL: Moves all extremities. Strength/ROM intact, No edema, No calf tenderness. NEURO: Alert. Cranial nerves II through XII intact. Good gait. Good coordination SKIN: Warm, dry. Normal Color Course Vital Signs Vital signs: Vital Signs Temperature 97.6 F 11/27/24 10:00 Pulse Rate 66 11/27/24 10:00 Respiratory Rate 15 11/27/24 10:00 Blood Pressure 148/88 H 11/27/24 10:00 Pulse Oximetry 98 11/27/24 10:00 Oxygen Delivery Room Air 11/27/24 10:00 Temperature 97.6 F 11/27/24 10:00 Pulse Rate 63 11/27/24 10:42 Respiratory Rate 16 11/27/24 10:42 Blood Pressure 147/83 H 11/27/24 10:42 Pulse Oximetry 95 11/27/24 10:42 Oxygen Delivery Room Air 11/27/24 10:00 Medical Decision Making MDM Narrative Medical decision making narrative: [age] old male present to the emergency department for evaluation for issues initiating urination and issues with constipation. Patient has been taking unsuccessful bowel regimen at home. Patient received 2 soapsuds enemas without significant improvement. Patient continues to feel excessively weak in the emergency department. Patient is currently afebrile with no leukocytosis hemoglobin of 12.2. No significant acute abnormalities on the patient's CMP UA did have some hematuria but I believe this was from traumatic urinary catheterization. Patient was treated with Rocephin and Flagyl and IV fluids in the emergency department. Patient does feel too weak and uncomfortable to be discharged home. Patient was discussed with the hospitalist patient will be admitted for treatment for suspected colitis as seen on the CT scan. Patient will also receive anticipated further bowel treatment. Patient and family were updated on the plan for admission. All questions concerns were addressed. Differential Diagnosis Differential Diagnosis: Colitis, constipation, UTI, dehydration Vital Signs Vital Signs: Vital Signs Temperature 97.6 F 11/27/24 10:00 Pulse Rate 66 11/27/24 10:00 Respiratory Rate 15 11/27/24 10:00 Blood Pressure 148/88 H 11/27/24 10:00 Pulse Oximetry 98 11/27/24 10:00 Oxygen Delivery Room Air 11/27/24 10:00 Temperature 97.6 F 11/27/24 10:00 Pulse Rate 63 11/27/24 10:42 Respiratory Rate 16 11/27/24 10:42 Blood Pressure 147/83 H 11/27/24 10:42 Pulse Oximetry 95 11/27/24 10:42 Oxygen Delivery Room Air 11/27/24 10:00 Lab Data Lab results reviewed: Yes I reviewed the patient's lab results. 11/27/24 10:25 11/27/24 10:25 Labs: Lab Results 11/27/24 11/27/24 Range/Units 10: 17:16 WBC 3.4 L (4.5-10.0) K/mm3 RBC 3.99 L (4.6-6.20) M/mm3 Hgb 12.2 L (14.0-18.0) g/dL Hct 37.8 L (42.0-52.0) % MCV 94.7 (80-100) fl MCH 30.6 (26-34) pg MCHC 32.3 (32-36) g/dl RDW 14.1 (11.5-14.5) % Plt Count 191 (150-375) k/mm3 MPV 10.0 (7.4-10.4) fl Immature Gran % (Auto) 0.3 (0-0.5) % Neut % (Auto) 63.1 (45.5-73.1) % Lymph % (Auto) 24.2 (18.3-44.2) % [place] % (Auto) 8.0 (2.6-8.5) % Eos % (Auto) 2.9 (0-4.4) % Baso % (Auto) 1.5 H (0.2-1.2) % Lymph # (Auto) 0.82 L (0.9-3.2) K/mm3 [place] # (Auto) 0.3 (0.1-0.6) K/mm3 Eos # (Auto) 0.1 (0-0.3) K/mm3 Baso # (Auto) 0.1 (0.0-0.1) K/mm3 Abs Immat Gran (auto) 0.01 (0.00-0.031) K/mm3 Absolute Neuts (auto) 2.1 (1.3-6.7) K/mm3 Absolute Nucleated RBC 0.000 (0.0-0.012) K/mm3 Nucleated RBC % 0.0 (0.0-0.2) % Sodium 136 L (137-145) mmol/L Potassium 4.0 (3.4-5.0) mmol/L Chloride 100 (98-107) mmol/L Carbon Dioxide 30 (22-30) mmol/L Anion Gap 6 (4-12) mmol/L BUN 21 H (9-20) mg/dL Creatinine 1.03 (0.7-1.3) mg/dL Estim Creat Clear Calc 61 ml/min Estimated GFR > 60 (59 - ) Glucose 135 H (65-110) mg/dL Calcium 10.7 H (8.4-10.2) mg/dL Total Bilirubin 0.8 (0.2-1.3) mg/dL AST 54 (17-59) U/L ALT 41 (6-50) U/L Alkaline Phosphatase 39 (38-126) U/L Total Protein 6.9 (6.3-8.2) g/dL Albumin 4.4 (3.5-5.1) g/dL Lipase 68 (23-300) U/L Urine Color Yellow (Yellow) Urine Appearance Cloudy H (Clear) Urine pH 8.0 (5.0-9.0) Ur Specific Blessing 1.019 (1.001-1.035) Urine Protein 2+ H (Negative) mg/dL Urine Glucose (UA) Negative (Negative) mg/dL Urine Ketones Negative (Negative) mg/dL Ur Blood (Man) 2+ H (Negative) Urine Nitrate Negative (Negative) Urine Bilirubin Negative (Negative) Urine Urobilinogen 1.0 (<2.0) mg/dL Add Ur Microanalysis Reviewed Leukocyte Esterase Rfl Trace H (Negative) MONICA/UL Urine RBC 51-100 H (0-2) /hpf Urine WBC 0-5 (0-3) /hpf Ur Squamous Epith Cells None seen (Few) /hpf Urine Bacteria None seen /hpf Urine Casts 0-2 Imaging Data Radiologist's impression: Impressions Abdomen/Pelvis CT 11/27/24 11:16 IMPRESSION: 1. Stercoral colitis. 2. Probable constipation. Discharge Plan Discharge Clinical Impression: Stercoral colitis Patient Disposition: Still a Patient Condition: Stable Instructions: Antibiotic Form Patient Language: Citizen Of [place] Prescriptions: No Action Men's Multivitamin 400-20-300 mcg Tablet 1 tablet PO DAILY Fiber Supplement 1 cap PO QAM ezetimibe 10 mg tablet 10 mg PO DAILY CoQ10 100 mg PO DAILY losartan 50 mg tablet 50 mg PO DAILY isosorbide mononitrate 30 mg tablet extended release 24 hr 30 mg PO DAILY Restasis MultiDose 0.05 % drops 1 drp EACH EYE Q12H fenofibrate 54 mg tablet 52 mg PO QAM Qty: 90 0RF acetaminophen [Tylenol 8 Hour] 650 mg tablet extended release 1,000 mg PO TID aspirin [Ginny Low Dose Aspirin] 81 mg Tablet,Delayed Release (Dr/Ec) 81 mg PO DAILY albuterol sulfate [ProAir HFA] 90 mcg/actuation Hfa Aerosol Inhaler 2 puff INHALATION PRN PRN (Reason: Wheezing) atorvastatin 40 mg tablet 80 mg PO QAM cetirizine 10 mg Tablet 5 mg PO DAILY Metamucil (with sugar) 3.4 gram Powder In Packet 1 tsp PO QAM PRN (Reason: constipation) trazodone 100 mg tablet 100 mg PO HS Qty: 90 3RF omeprazole 40 mg capsule,delayed release(DR/EC) See Rx Instructions .ROUTE .COMPLEX Qty: 90 2RF Dose Instruction: TAKE 1 CAPSULE BY MOUTH EVERY DAY Rx Instructions: TAKE 1 CAPSULE BY MOUTH EVERY DAY oxybutynin chloride 10 mg tablet extended release 24hr 10 mg PO DAILY Qty: 90 2RF gabapentin 300 mg capsule 900 mg PO TID Qty: 810 3RF baclofen 5 mg tablet 5 mg PO TID Qty: 270 0RF nortriptyline 25 mg capsule See Rx Instructions .ROUTE .COMPLEX Qty: 90 2RF Dose Instruction: TAKE 2 CAPSULES BY MOUTH EVERY DAY AT NIGHT Rx Instructions: TAKE 1 CAPSULES BY MOUTH EVERY DAY AT NIGHT fluticasone propion-salmeterol [Wixela Inhub] 250-50 mcg/dose blister with device 1 inh inhalation BID Qty: 60 11RF metoprolol tartrate 25 mg tablet 12.5 mg PO DAILY Qty: 45 1RF Follow-up/Referrals: Zackary Grider DO [Primary Care Provider, Internal Medicine]
--- NOTE | 2024-11-27 17:15 | PC.NURSE ---
patient straight cathed for urine, 350 ML urine from bladder, patient tolerated well. urine sample sent to lab
[2024-11-27 17:37] LABS: Add Urine Microscopic? YES; Appearance Urine Cloudy (Clear); Glucose Urine UA Negative (Negative); Leukocyte Esterase Ur Trace LEU/UL (Negative); Need Manual Microscopic Reviewed; Nitrate Urine Negative (Negative); Non Pathogenic Casts 0-2; Specific Grav Ur 1.019 (1.001-1.035)
[2024-11-27 18:39] VITALS: BP 149/88; PULSE 90; RESP 17; O2SAT 100
[2024-11-27] MEDS: GABAPENTIN 300 MG CAPSULE 900 MG PO (19:02)
[2024-11-27] MEDS: BACLOFEN 5 MG TABLET PO (19:02)
--- NOTE | 2024-11-27 19:07 | P.HP_ITS ---
H&P: HPI History of Present Illness Date/Time: 11/27/24 19:07 Chief Complaint: Acute abdominal pain Narrative: 74 year old male past medical history of hypertension, TIA, throat cancer, BPH, diverticulitis, CAD and COPD the hospital with acute abdominal pain. Patient states that he has been unable to have a bowel movement for the last 5 days and now has urinary retention. Patient states that he is now on able to void and this may came to the emergency room. He states that he was taking Senokot and MiraLax without results. Patient denies fevers chills nausea or vomiting. Patient's lab work shows leukopenia at 3.4, hemoglobin of 12.2, sodium of 136, BUN of 21, glucose of 135, calcium 10.7, UA is cloudy with trace leukocyte esterase, 50-100 rbc's, CT abdomen pelvis show Stercoral colitis in constip ation. Patient had several tap water enemas in emergency room with no results. He was started on Flagyl and Rocephin. Review of Systems Review of Systems: 12 systems were reviewed and are negativ e except for as per HPI. 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 H/O gastroesophageal reflux (GERD) Glaucoma Osteoarthritis TIA (transient ischemic attack) Head and neck cancer History of tobacco abuse Obstructive sleep apnea Shingles Anemia Anxiety Depression Fracture vertebrae Arthritis BPH (benign prostatic hyperplasia) GERD (gastroesophageal reflux disease) Ulcer Diverticulitis Sleep apnea Pneumonia Bronchitis Asthma COPD (chronic obstructive pulmonary disease) Hyperlipidemia Hypertension CAD (coronary artery disease) Seasonal allergies Cataract History of throat cancer Surgical History Surgical History History of cataract surgery H/O Spinal surgery neck surgery with cage, lumbar dissection History of orthopedic surgery bilateral rotator cuff repair, sacroiliac joint surgery Hx of vasectomy History of head, eyes, ears, nose, and throat (HEENT) surgery vocal cord surgery H/O blepharoplasty bilateral History of biopsy throat Family History Family History Father Hypertension Family history of chronic obstructive pulmonary disease Family history of coronary artery disease Mother Hypertension Family history of malignant neoplasm of breast in first degree relative Family history of congestive heart failure Sibling Acute myocardial infarction Family history of cardiac disorder Family history of coronary artery disease Grandparent Cerebrovascular accident Parkinsons Social History Social History (Updated 09/18/24 @ 12:34 by Josie Valles [facility]) Smoking packs per day: 3 Smoking cigarettes per day: 60.0 Years smoked: 15 Smoking pack-years: 45.00 Smoking status: Former smoker Tobacco type: cigarettes Second hand tobacco smoke exposure: No Smoking end date: 02/20/83 Additional smoking assessment comments: QUIT 1983 Alcohol intake: current Drinks per week: 2 Alcohol use details: Beer Substance use: never Substance use type: does not use Other substance usage details: does have a marijuana card Last use: 07/22/22 Do You Feel Safe in your Home?: Yes Lack of Transportation: No Lack of Food: Never True Current Housing: I Have Housing Concerned About Future Housing: No Difficulty Paying Gas/Electric Bills: No Difficulty Paying for Meds: No Currently Unemployed: No Education: High School Diploma/GED Difficulty w/ Childcare or Family Care: Decline to Answer Living arrangements: with family Gender identity (if verbalized by the patient): Male Spiritual care concerns: No Meds Home Medications and Allergies Home Medications ?Medication ?Instructions ?Recorded ?Confirmed ?Type Fiber Supplement 2 cap PO .evening 01/06/19 1 History cbtdcggs-uovtuwjd-liktg acid 400 1 tablet PO DAILY 11/27/24 History mcg-vit K 20 mcg-lycop 300 mcg tablet (Men's Multivitamin) losartan 50 mg tablet 50 mg PO DAILY 02/07/2010/14 History albuterol sulfate 90 mcg/actuation 2 puff inhalation P RN PRN Wheezing 03/06/20 11/27/24 History aerosol inhaler (ProAir HFA) aspirin 81 mg tablet,delayed 81 mg PO DAILY 03/06/20 1 History release (Ginny Low Dose Aspirin) atorvastatin 40 mg tablet 40 mg PO QAM 08/12/20 History cyclosporine 0.05 % eye drops 1 drp EACH EYE Q12H 05/2 05/1111/27/24 History (Restasis MultiDose) fenofibrate 54 mg tablet 52 mg (0.963 x 54 mg) PO QAM #90 08/30/22 11/27/24 Rx tabs isosorbide mononitrate 30 mg 30 mg PO DAILY 09/12/23 1 History tablet,extended release 24 hr trazodone 100 mg tablet 100 mg PO HS #90 tabs 11/27/24 Rx omeprazole 40 mg capsule,delayed See Rx Instructions . Route 03/11/24 11/27/24 Rx release .COMPLEX #90 caps oxybutynin chloride 10 mg 10 mg PO DAILY #90 tabs 02/2111/27/24 Rx tablet,extended release 24 hr cetirizine 10 mg tablet 5 mg PO DAILY 07/24/2411/27 History psyllium husk (with sugar) 3.4 1 tsp PO QAM PRN consti pation 07/24/24 11/27/24 History gram oral powder packet (Metamucil (with sugar)) gabapentin 300 mg capsule 900 mg (3 x 300 mg) PO TID # 810 07/29/24 11/27/24 Rx caps baclofen 5 mg tablet 5 mg PO TID #270 tabs 11/27/24 Rx nortriptyline 25 mg capsule See Rx Instructions .Route 08/13/24 11/27/24 Rx .COMPLEX #90 caps fluticasone 250 mcg-salmeterol 50 1 inh inhalation BID #60 ea 09/16/24 11/27/24 Rx mcg/dose blistr powdr for inhalation (Wixela Inhub) acetaminophen 650 mg 1,000 mg PO TID 09/18/2410/14 History tablet,extended release (Tylenol 8 Hour) ezetimibe 10 mg tablet 10 mg PO DAILY 09/18/24 10/0 10/14 History metoprolol tartrate 25 mg tablet 12.5 mg (1/2 x 25 mg) PO DAILY #45 10/02/24 11/27/24 Rx tabs Allergies Allergy/AdvReac Type Severity Reaction Status Date / Time iohexol (From [email or web address]) Allergy Severe Anaphylactic Verified 09/18/24 12:54 Shock lisinopril Allergy Severe Swelling Verified 11/27/24 20:02 of Lip/Tongue/Throat clotrimazole AdvReac Unknown Rash Verified 09/18/24 12:54 niacin AdvReac Unknown Rash Verified 09/18/24 12:54 Vital Signs Vital Signs - 24 hr 11/27/24 10:00 11/27/24 10:42 11/27/24 18:39 Temperature 97.6 F Pulse Rate 66 63 90 Respiratory Rate 15 16 17 Blood Pressure 148/88 H 147/83 H 149/88 H Pulse Oximetry 98 95 100 Oxygen Delivery Room Air Exam Narrative: General: well appearing, appears stated age. HEENT: normocephalic, atraumatic. Mucous membranes moist. EOMI, PERRLA, bilateral sclera anicteric, no conjunctival injection. Neck supple without JVD, lymphadenopathy, or bruit. Respiratory: clear to ascultation bilaterally. No rales/rhonic/wheezes. Cardiovascular: Regular rate and rhythm, normal S1-S2 upon ascultation. No murmurs, rubs, or clicks. PMI is nondisplaced, capillary refill less than 3 second. Abdomen: Distended firm, round, no pulsatile masses, nondistended and No rebound, no guarding. No CVA tenderness, no hepatosplenomegaly. Bowel sounds present to all four quadrants. No high pitch or tinkling sounds, resonant to percussion. Mildly tender Extremities: No cyanosis, clubbing, or edema present. Pulses are palpable 2/2. Active ROM to all four extremities. Neuro: Alert and orientated x 4. PERRLA. Cranial nerves 2-12 intact without focal deficit. Skin: Warm, dry, and intact, without rash, erythema, or lesion. Psych: pleasant, cooperative, normal speech, normal affect, no hallucinations, no dysarthia H&P: Results Labs Labs: Short CBC 11/27/24 Range/Units 10:25 WBC 3.4 L (4.5-10.0) K/mm3 Hgb 12.2 L (14.0-18.0) g/dL Hct 37.8 L (42.0-52.0) % Plt Count 191 (150-375) k/mm3 BMP 11/27/24 10:25 Sodium 136 L Potassium 4.0 Chloride 100 Carbon Dioxide 30 BUN 21 H Creatinine 1.03 Glucose 135 H Calcium 10.7 H Liver Function 11/27/24 Range/Units 10:25 Total Bilirubin 0.8 (0.2-1.3) mg/dL AST 54 (17-59) U/L ALT 41 (6-50) U/L Alkaline Phosphatase 39 (38-126) U/L Albumin 4.4 (3.5-5.1) g/dL Urine 11/27/24 Range/Units 17:16 Urine Color Yellow (Yellow) Urine Appearance Cloudy H (Clear) Urine pH 8.0 (5.0-9.0) Ur Specific [place] 1.019 (1.001-1.035) Urine Protein 2+ H (Negative) mg/dL Urine Glucose (UA) Negative (Negative) mg/dL Assessment and Plan Assessment and plan (1) Stercoral colitis: Code(s): K52.89 - Other specified noninfective gastroenteritis and colitis Status: Acute Assessment and Plan: GI consulted Kimberly and Flagyl (2) Constipation: Code(s): K59.00 - Constipation, unspecified Status: Acute Assessment and Plan: Lactulose enema x1 Oral lactulose Daily senna IV fluids for hydration Clear liquid diet Avoid narcotics as it can make constipation worse (3) Urinary retention: Code(s): R33.9 - Retention of urine, unspecified Status: Acute Assessment and Plan: Likely BPH with severe constipation Atkins catheter for 48 hours Start Flomax Lidocaine lubrication (4) Hypertension: Code(s): I10 - Essential (primary) hypertension Status: Chronic Assessment and Plan: Continue Cozaar (5) CAD (coronary artery disease): Code(s): I25.10 - Atherosclerotic heart disease of [place] coronary artery without angina pectoris Status: Acute Assessment and Plan: Continue Zetia, aspirin, Imdur, metoprolol, losartan, (6) BPH (benign prostatic hyperplasia): Code(s): N40.0 - Benign prostatic hyperplasia without lower urinary tract symptoms Status: Acute Assessment and Plan: Patient will need to be discharged home on Flomax Quality VTE Prophylaxis VTE prophylaxis: mechanical ordered and pharmacologic ordered Hospitalist MIPS Advance Care Plan I have confirmed that the patient's Advanced Care Plan is present, code status is documented, or surrogate decision maker is listed in patient medical record.: Yes Medication Reconciliation I have utilized all available resources to obtain, update and review the patients current medications (includes all prescriptions, OTC, herbals, cannabis, and nutritional supplements).: Yes
[2024-11-27 19:49] VITALS: BMI 28.5
--- NOTE | 2024-11-27 19:51 | ADMGEN ---
This patient, Daryl Hay, was admitted to [facility] Surg Room 323-01 at 1945. Patient/family oriented to hospital policies and general routines including ID bracelet, bed and alarms, visiting hours, pain management, procedures, bathroom and other care routines, personal items, smoking policy, room service/diet, and visiting hours. Information on how to activate the Rapid Response Team has been discussed. Patient/Family are encouraged to report perceived risks to care and to ask questions if they do not understand what they are told or what they should do.
[2024-11-27] MEDS: KETOROLAC 15 MG/ML VIAL (*BKC) IV PUSH ×2 (20:00→23:38)
[2024-11-27] MEDS: SODIUM CHLORIDE 0.9% IV 1,000 ML 125 ML IV CONT (20:25)
[2024-11-27] MEDS: metroNIDAZOLE 500 MG/ISO 100ML 500 MG/100 ML BAG 100 MG IVPB (20:25)
[2024-11-27] MEDS: LACTULOSE 20 GM/30 ML UDC PO (20:30)
--- NOTE | 2024-11-27 20:43 | ADMGEN ---
This patient, Daryl Hay, was admitted to [facility] Surg Room 323-01 at 0. Patient/family oriented to hospital policies and general routines including ID bracelet, bed and alarms, visiting hours, pain management, procedures, bathroom and other care routines, personal items, smoking policy, room service/diet, and visiting hours. Information on how to activate the Rapid Response Team has been discussed. Patient/Family are encouraged to report perceived risks to care and to ask questions if they do not understand what they are told or what they should do.
[2024-11-27 21:00] VITALS: BP 154/91; PULSE 89; RESP 17; TEMP 37.6; O2SAT 92
[2024-11-27 21:15] VITALS: BP 156/90; PULSE 88; RESP 16; TEMP 37.7; O2SAT 96
[2024-11-27] MEDS: ACETAMINOPHEN 325 MG TABLET 650 MG PO (21:24)
[2024-11-27 22:00] VITALS: PULSE 95; O2SAT 93
[2024-11-27] MEDS: cefTRIAXone 1 GM in SODIUM CHLORIDE 0.9% IV 50 ML 100 ML IVPB (22:07)
[2024-11-27] MEDS: TAMSULOSIN HCL 0.4 MG CAPSULE PO (22:08)
[2024-11-27] MEDS: SENNA/DOCUSATE SODIUM TABLET 1 TAB PO (22:20)
[2024-11-27] MEDS: LIDOCAINE 2% GEL UROJET 10 ML PKG MUCOUS MEM (22:38)
[2024-11-27] MEDS: NORTRIPTYLINE HCL 25 MG CAPSULE BY MOUTH (23:20)
[2024-11-27] MEDS: LACTULOSE ENEMA 200 GM/1,000 ML ENEMA RECTAL (23:37)
[2024-11-27] MEDS: ACETAMINOPHEN 500 MG TABLET PO (23:45)
[2024-11-27] MEDS: cycloSPORINE 0.4 ML OPHTH SOLUTION 1 DROP EACH EYE (23:45)
[2024-11-28] MEDS: KETOROLAC 15 MG/ML VIAL (*BKC) IV PUSH ×4 (05:22→23:43)
[2024-11-28] MEDS: metroNIDAZOLE 500 MG/ISO 100ML 500 MG/100 ML BAG 100 MG IVPB ×2 (05:25→13:21)
[2024-11-28] MEDS: SODIUM CHLORIDE 0.9% IV 1,000 ML 125 ML IV CONT ×3 (05:29→23:31)
[2024-11-28 05:38] VITALS: BP 145/81; PULSE 76; RESP 14; TEMP 36.4; O2SAT 98
[2024-11-28] MEDS: BACLOFEN 5 MG TABLET PO ×3 (05:52→20:57)
[2024-11-28] MEDS: GABAPENTIN 300 MG CAPSULE 900 MG PO ×3 (05:53→20:56)
[2024-11-28] MEDS: ACETAMINOPHEN 500 MG TABLET 1000 MG PO ×3 (05:53→20:57)
[2024-11-28 06:05] LABS: Hematocrit 36.1 % (42.0-52.0); Hemoglobin 11.6 g/dL (14.0-18.0); Immature Granulocyte Percent A 0.3 % (0-0.5); Lymphocytes Absolute Auto 0.62 K/mm3 (0.9-3.2); Mean Corpuscular HGB Conc 32.1 g/dl (32-36); Mean Corpuscular Hemoglobin 30.0 pg (26-34); Mean Corpuscular Volume 93.3 fl (80-100); Nucleated Red Blood Cells Absolute Auto 0.000 K/mm3 (0.0-0.012); Nucleated Red Blood Cells Perc 0.0 % (0.0-0.2); Platelet Count Result 172 k/mm3 (150-375); Red Blood Count 3.87 M/mm3 (4.6-6.20); White Blood Count 7.6 K/mm3 (4.5-10.0)
[2024-11-28 06:23] LABS: Anion Gap 6 mmol/L (4-12); Blood Urea Nitrogen 22 mg/dL (9-20); Calcium 9.8 mg/dL (8.4-10.2); Carbon Dioxide 29 mmol/L (22-30); Chloride 98 mmol/L (98-107); Estimated CRCL calculation 59 ml/min; Estimated Glomerular Filt Rate > 60; Glucose 111 mg/dL (65-110); Potassium 4.0 mmol/L (3.4-5.0); Sodium 133 mmol/L (137-145)
--- NOTE | 2024-11-28 07:26 | P.PNIM_ITS ---
Progress Note: A&P Assessment and Plan (1) Stercoral colitis: Code(s): K52.89 - Other specified noninfective gastroenteritis and colitis Status: Acute Assessment and Plan: * CT Abd/pelvis: Stercoral colitis. Probable constipation. * GI consulted * Continue Rocephin and Flagyl * P.r.n. pain control * Diet: Clear liquid * Gentle IVF (2) Constipation: Code(s): K59.00 - Constipation, unspecified Status: Acute Assessment and Plan: * Lactulose enema x1 * Oral lactulose * Daily senna * IV fluids for hydration * Clear liquid diet * Avoid narcotics as it can make constipation worse * Had passage of bowel movements evening of admission (3) Urinary retention: Code(s): R33.9 - Retention of urine, unspecified Status: Acute Assessment and Plan: * Likely 2/2 severe constipation * Atkins catheter for 48 hours * Start Flomax * Lidocaine lubrication (4) Hypertension: Code(s): I10 - Essential (primary) hypertension Status: Chronic Assessment and Plan: * Continue Cozaar (5) CAD (coronary artery disease): Code(s): I25.10 - Atherosclerotic heart disease of [place] coronary artery without angina pectoris Status: Acute Assessment and Plan: * Continue Zetia, aspirin, Imdur, metoprolol, losartan (6) BPH (benign prostatic hyperplasia): Code(s): N40.0 - Benign prostatic hyperplasia without lower urinary tract symptoms Status: Acute Assessment and Plan: * Patient will need to be discharged home on Flomax Subjective Date/time seen: 11/28/24 07:26 Interval history: 74 year old male past medical history of hypertension, TIA, throat cancer, BPH, diverticulitis, CAD and COPD the hospital with acute abdominal pain. Patient states that he has been unable to have a bowel movement for the last 5 days and now has urinary retention. 11/28/2024 Patient sitting comfortably in bed at time of examination. Accompanied by he was able to answer many of the questions. Endorses passage of bowel movements yesterday. Still endorsing some abdominal discomfort but states that has improved since yesterday. Denies any chest pain, shortness of breath or nausea/vomiting. Blood culture still pending. Review of Systems Review of Systems: 12 systems were reviewed and are negativ e except for as per HPI. Exam Narrative: General: well appearing, appears stated age. HEENT: normocephalic, atraumatic. Mucous membranes moist. EOMI, PERRLA, bilateral sclera anicteric, no conjunctival injection. Neck supple without JVD, lymphadenopathy, or bruit. Respiratory: clear to auscultation bilaterally. No rales/rhonchi/wheezes. Cardiovascular: Regular rate and rhythm, normal S1-S2 upon auscultation. No murmurs, rubs, or clicks. PMI is nondisplaced, capillary refill less than 3 second. Abdomen: Distended firm, round, no pulsatile masses, nondistended and No rebound, no guarding. No CVA tenderness, no hepatosplenomegaly. Bowel sounds present to all four quadrants. No high pitch or tinkling sounds, resonant to percussion. Mildly tender Extremities: No cyanosis, clubbing, or edema present. Pulses are palpable 2/2. Active ROM to all four extremities. Neuro: Alert and orientated x 4. PERRLA. Cranial nerves 2-12 intact without focal deficit. Skin: Warm, dry, and intact, without rash, erythema, or lesion. Psych: pleasant, cooperative, normal speech, normal affect, no hallucinations, no dysarthia Objective Data Vital Signs Vital Signs: Vital Signs - 24 hr 11/27/24 10:00 11/27/24 10:42 11/27/24 18:39 Temperature 97.6 F Pulse Rate 66 63 90 Respiratory Rate 15 16 17 Blood Pressure 148/88 H 147/83 H 149/88 H Pulse Oximetry 98 95 100 Oxygen Delivery Room Air Fraction of Inspired Oxygen 11/27/24 20:00 11/27/24 21:00 11/27/24 21:15 Temperature 99.7 F H 99.9 F H Pulse Rate 89 88 Respiratory Rate 17 16 Blood Pressure 154/91 H 156/90 H Pulse Oximetry 92 96 Oxygen Delivery Room Air Fraction of Inspired Oxygen 11/27/24 22:00 11/27/24 22:00 11/28/24 02:06 Temperature Pulse Rate 95 95 Respiratory Rate Blood Pressure Pulse Oximetry 93 93 Oxygen Delivery Room Air CPAP CPAP Fraction of Inspired Oxygen 21 11/28/24 05:38 Temperature 97.6 F Pulse Rate 76 Respiratory Rate 14 Blood Pressure 145/81 H Pulse Oximetry 98 Oxygen Delivery Fraction of Inspired Oxygen Intake/Output Intake/Output: Intake & Output 11/25/24 11/26/24 11/27/24/09/25 23:59 23:59 23:59 23:59 Intake Total 150 1550 Output Total 750 250 Balance -600 1300 Meds/Results Medications: Active Medications Generic Name Dose Route Start Last Admin Trade Name Freq PRN Reason Stop Dose Admin Acetaminophen 1,000 mg 11/28/24 06:00 11/28/24 05:53 Acetaminophen 500 Mg Tablet PO 1,000 mg Q8HR EILEEN Administration Albuterol 2 puff 11/27/24 22:19 Albuterol Sulfate (*Sp) Aerosol 1 Puff INHALATION Q4HRT PRN Wheezing Aspirin 81 mg 11/28/24 09:00 Aspirin 81 Mg Enteric Tablet PO DAILY [facility] Atorvastatin Calcium 40 mg 11/28/24 09:00 Atorvastatin 40 Mg Tablet PO QAM [facility] Baclofen 5 mg 11/28/24 06:00 11/28/24 05:52 Baclofen 5 Mg Tablet PO 5 mg Q8HR EILEEN Administration Cyclosporine 1 drop 11/27/24 22:20 11/27/24 23:45 Cyclosporine 0.4 Ml Ophth Solution EACH EYE 1 drop Q12HR EILEEN Administration Ezetimibe 10 mg 11/28/24 09:00 Ezetimibe 10 Mg Tablet PO DAILY [facility] Enoxaparin Sodium 40 mg 11/28/24 09:00 Enoxaparin 40 Mg/0.4 Ml Syringe SUB-Q DAILY [facility] Gabapentin 900 mg 11/28/24 06:00 11/28/24 05:53 Gabapentin 300 Mg Capsule PO 900 mg Q8HR EILEEN Administration Ceftriaxone Sodium 1 gm/ 50 mls @ 100 mls/hr 11/28/24 21:00 Sodium Chloride IVPB Q24H [facility] Metronidazole 500 mg in 100 mls @ 100 mls/hr 11/28/24 06:00 11/28/24 05:25 Flagyl 500 Mg/Iso Soln 100 Ml IVPB 100 mls/hr Q8HR EILEEN Administration Sodium Chloride 1,000 mls @ 125 mls/hr 11/27/24 19:15 11/28/24 05:29 Normal Saline Iv IV CONT 125 mls/hr .Q8H EILEEN Administration Isosorbide Mononitrate 30 mg 11/28/24 09:00 Isosorbide Mononitrate 30 Mg Tab.Er.24h PO DAILY [facility] Ketorolac Tromethamine 15 mg 11/27/24 20:00 11/28/24 05:22 Ketorolac 15 Mg/Ml Vial (*Bkc) IV PUSH 15 mg Q6HR [facility] Administration Loratadine 10 mg 11/28/24 09:00 Loratadine 10 Mg Tablet PO QAM [facility] Losartan Potassium 50 mg 11/28/24 09:00 Losartan Potassium 50 Mg Tablet PO DAILY [facility] Metoprolol Tartrate 12.5 mg 11/28/24 09:00 Metoprolol Tartrate 12.5 Mg Tablet PO DAILY [facility] Nortriptyline HCl 25 mg 11/27/24 22:20 11/27/24 23:20 Nortriptyline Hcl 25 Mg Capsule BY MOUTH 25 mg QHS [facility] Administration Oxybutynin Chloride 10 mg 11/28/24 09:00 Oxybutynin Chloride Xl 5 Mg Tab.Er.24 PO DAILY [facility] Pantoprazole Sodium 40 mg 11/28/24 09:00 Pantoprazole 40 Mg Tablet PO Q12HR [facility] Senna/Docusate Sodium 1 tab 11/27/24 21:00 11/27/24 22:20 Senna/Docusate Sodium Tablet PO 1 tab HS [facility] Administration Tamsulosin HCl 0.4 mg 11/28/24 09:00 Tamsulosin Hcl 0.4 Mg Capsule PO QAM [facility] Trazodone HCl 100 mg 11/27/24 22:45 11/27/24 23:20 Trazodone Hcl 50 Mg Tablet PO 100 mg HS [facility] Administration Radiology Results: ITS Impressions Abdomen/Pelvis CT 11/27/24 11:16 IMPRESSION: 1. Stercoral colitis. 2. Probable constipation. Labs Labs: Laboratory Results - last 24 hr 11/27/24 11/27/24 11/28/24 10:25 17:16 05:53 WBC 3.4 L 7.6 RBC 3.99 L 3.87 L Hgb 12.2 L 11.6 L Hct 37.8 L 36.1 L MCV 94.7 93.3 MCH 30.6 30.0 MCHC 32.3 32.1 RDW 14.1 14.0 Plt Count 191 172 MPV 10.0 10.1 Immature Gran % (Auto) 0.3 0.3 Neut % (Auto) 63.1 86.2 H Lymph % (Auto) 24.2 8.2 L [place] % (Auto) 8.0 5.0 Eos % (Auto) 2.9 0.0 Baso % (Auto) 1.5 H 0.3 Lymph # (Auto) 0.82 L 0.62 L [place] # (Auto) 0.3 0.4 Eos # (Auto) 0.1 0.0 Baso # (Auto) 0.1 0.0 Abs Immat Gran (auto) 0.01 0.02 Absolute Neuts (auto) 2.1 6.6 Absolute Nucleated RBC 0.000 0.000 Nucleated RBC % 0.0 0.0 Sodium 136 L 133 L Potassium 4.0 4.0 Chloride 100 98 Carbon Dioxide 30 29 Anion Gap 6 6 BUN 21 H 22 H Creatinine 1.03 1.07 Estim Creat Clear Calc 61 59 Estimated GFR > 60 > 60 Glucose 135 H 111 H Calcium 10.7 H 9.8 Total Bilirubin 0.8 AST 54 ALT 41 Alkaline Phosphatase 39 Total Protein 6.9 Albumin 4.4 Lipase 68 Urine Color Yellow Urine Appearance Cloudy H Urine pH 8.0 Ur Specific [place] 1.019 Urine Protein 2+ H Urine Glucose (UA) Negative Urine Ketones Negative Ur Blood (Man) 2+ H Urine Nitrate Negative Urine Bilirubin Negative Urine Urobilinogen 1.0 Add Ur Microanalysis Reviewed Leukocyte Esterase Rfl Trace H Urine RBC 51-100 H Urine WBC 0-5 Ur Squamous Epith Cells None seen Urine Bacteria None seen Urine Casts 0-2 Quality VTE Prophylaxis VTE prophylaxis: mechanical ordered and pharmacologic ordered
[2024-11-28] MEDS: oxyBUTYnin CHLORIDE XL 5 MG TAB.ER.24 10 MG PO (09:43)
[2024-11-28] MEDS: ISOSORBIDE MONONITRATE 30 MG TAB.ER.24H PO (09:44)
[2024-11-28] MEDS: PANTOPRAZOLE 40 MG TABLET PO ×2 (09:44→20:57)
[2024-11-28] MEDS: EZETIMIBE 10 MG TABLET PO (09:45)
[2024-11-28] MEDS: ENOXAPARIN 40 MG/0.4 ML SYRINGE SUB-Q (09:45)
[2024-11-28] MEDS: ATORVASTATIN 40 MG TABLET PO (09:45)
[2024-11-28 09:48] VITALS: PULSE 76
[2024-11-28] MEDS: ASPIRIN 81 MG ENTERIC TABLET PO (09:48)
[2024-11-28] MEDS: METOPROLOL TARTRATE 12.5 MG TABLET PO (09:48)
[2024-11-28] MEDS: LORATADINE 10 MG TABLET PO (09:49)
[2024-11-28] MEDS: LOSARTAN POTASSIUM 50 MG TABLET PO (09:49)
[2024-11-28] MEDS: TAMSULOSIN HCL 0.4 MG CAPSULE PO (09:49)
[2024-11-28] MEDS: cycloSPORINE 0.4 ML OPHTH SOLUTION 1 DROP EACH EYE ×2 (09:49→20:56)
--- NOTE | 2024-11-28 12:57 | PC.NURSE ---
Patient requesting to speak to darlene Nolan. RN called and updated him. Darlene Nolan said he would be up shortly.
[2024-11-28 14:00] VITALS: BP 124/58; PULSE 74; RESP 17; TEMP 36.3; O2SAT 98
--- NOTE | 2024-11-28 14:03 | PC.NURSE ---
RN called respiratory at 13:45 for patient to receive PRN inhaler.
[2024-11-28] MEDS: ALBUTEROL SULFATE (*SP) AEROSOL 1 PUFF 2 PUFF INHALATION (14:26)
--- NOTE | 2024-11-28 15:28 | WPDGICN ---
Assessment and Plan Assessment and plan (1) Chronic idiopathic constipation: Code(s): K59.04 - Chronic idiopathic constipation Status: Acute Assessment and Plan: The patient is experiencing an exacerbation of his chronic constipation, likely contributed to by his current medications, specifically oxybutynin, baclofen, and nortriptyline. While initial evacuation attempts were successful, a maintenance regimen is necessary to prevent recurrence. The plan includes offering a high-fiber diet and fixed daily doses of laxatives. We will initiate MiraLax 17 g tbid and add Linzess 145 ?g 30 minutes before breakfast. The patient and his were instructed that he must not go more than three days without a bowel movement, as prolonged constipation leads to harder, more impacted stools. Plan - Miralax 17 g bid - Linzess 145 mcg q am -Urology consult GI Consult Note Consult date/time: 11/28/24 15:28 Reason for consult: constipation HPI: Daryl Hay is a 74-year-old male with a history of hypertension, TIA, throat cancer, CAD, and COPD, admitted due to a 5-day history of moderate lower abdominal discomfort and constipation refractory to Senokot and MiraLax. A CT scan was read as stercoral colitis (there is a recent colonoscopy showing diverticulosis and hemorrhoids). Current treatment with oral and enema lactulose resulted in a moderate stool evacuation last evening; however, the patient reports a persistent feeling of incomplete evacuation. WBC at admission was low at 3.4 , with Cr 1.03 , and Ca 10.7 . His hospital course is complicated now by urinary retention, and nursing attempts at catheterization have been unsuccessful. His current home medications include losartan, atorvastatin, isosorbide, fenofibrate, omeprazole, oxybutynin, gabapentin, baclofen, nortriptyline, and metoprolol. 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 H/O gastroesophageal reflux (GERD) Glaucoma Osteoarthritis TIA (transient ischemic attack) Head and neck cancer History of tobacco abuse Obstructive sleep apnea Shingles Anemia Anxiety Depression Fracture vertebrae Arthritis BPH (benign prostatic hyperplasia) GERD (gastroesophageal reflux disease) Ulcer Diverticulitis Sleep apnea Pneumonia Bronchitis Asthma COPD (chronic obstructive pulmonary disease) Hyperlipidemia Hypertension CAD (coronary artery disease) Seasonal allergies Cataract History of throat cancer Surgical History Surgical History History of cataract surgery H/O Spinal surgery neck surgery with cage, lumbar dissection History of orthopedic surgery bilateral rotator cuff repair, sacroiliac joint surgery Hx of vasectomy History of head, eyes, ears, nose, and throat (HEENT) surgery vocal cord surgery H/O blepharoplasty bilateral History of biopsy throat Family History Family History Father Hypertension Family history of chronic obstructive pulmonary disease Family history of coronary artery disease Mother Hypertension Family history of malignant neoplasm of breast in first degree relative Family history of congestive heart failure Sibling Acute myocardial infarction Family history of cardiac disorder Family history of coronary artery disease Grandparent Cerebrovascular accident Parkinsons Social History Social History (Updated 09/18/24 @ 12:34 by Josie Valles [facility]) Smoking packs per day: 3 Smoking cigarettes per day: 60.0 Years smoked: 15 Smoking pack-years: 45.00 Smoking status: Former smoker Tobacco type: cigarettes Second hand tobacco smoke exposure: No Smoking end date: 02/20/83 Additional smoking assessment comments: QUIT 1983 Alcohol intake: current Drinks per week: 2 Alcohol use details: Beer Substance use: never Substance use type: does not use Other substance usage details: does have a marijuana card Last use: 07/22/22 Do You Feel Safe in your Home?: Yes Lack of Transportation: No Lack of Food: Never True Current Housing: I Have Housing Concerned About Future Housing: No Difficulty Paying Gas/Electric Bills: No Difficulty Paying for Meds: No Currently Unemployed: No Education: High School Diploma/GED Difficulty w/ Childcare or Family Care: Decline to Answer Living arrangements: with family Gender identity (if verbalized by the patient): Male Spiritual care concerns: No Meds Home Medications and Allergies Home Medications ?Medication ?Instructions ?Recorded ?Confirmed ?Type Fiber Supplement 2 cap PO .evening 01/06/19 11/27/24 History otapznwc-peqdgonn-gxhle acid 400 1 tablet PO DAILY 01/06/19 11/27/24 History mcg-vit K 20 mcg-lycop 300 mcg tablet (Men's Multivitamin) losartan 50 mg tablet 50 mg PO DAILY 02/07/20 11/27/24 History albuterol sulfate 90 mcg/actuation 2 puff inhalation PRN PRN Wheezing 03/06/20 11/27/24 History aerosol inhaler (ProAir HFA) aspirin 81 mg tablet,delayed 81 mg PO DAILY 03/06/20 11/27/24 History release (Ginny Low Dose Aspirin) atorvastatin 40 mg tablet 40 mg PO QAM 08/12/20 11/27/24 History cyclosporine 0.05 % eye drops 1 drp EACH EYE Q12H 07/12/21 11/27/24 History (Restasis MultiDose) fenofibrate 54 mg tablet 52 mg (0.963 x 54 mg) PO QAM #90 08/30/22 11/27/24 Rx tabs isosorbide mononitrate 30 mg 30 mg PO DAILY 09/12/23 11/27/24 History tablet,extended release 24 hr trazodone 100 mg tablet 100 mg PO HS #90 tabs 10/09/23 11/27/24 Rx omeprazole 40 mg capsule,delayed See Rx Instructions .Route 03/11/24 11/27/24 Rx release .COMPLEX #90 caps oxybutynin chloride 10 mg 10 mg PO DAILY #90 tabs 03/12/24 11/27/24 Rx tablet,extended release 24 hr cetirizine 10 mg tablet 5 mg PO DAILY 07/24/24 11/27/24 History psyllium husk (with sugar) 3.4 1 tsp PO QAM PRN constipation 07/24/24 11/27/24 History gram oral powder packet (Metamucil (with sugar)) gabapentin 300 mg capsule 900 mg (3 x 300 mg) PO TID #810 07/29/24 11/27/24 Rx caps baclofen 5 mg tablet 5 mg PO TID #270 tabs 08/08/24 11/27/24 Rx nortriptyline 25 mg capsule See Rx Instructions .Route 08/13/24 11/27/24 Rx .COMPLEX #90 caps fluticasone 250 mcg-salmeterol 50 1 inh inhalation BID #60 ea 09/16/24 11/27/24 Rx mcg/dose blistr powdr for inhalation (Wixela Inhub) acetaminophen 650 mg 1,000 mg PO TID 09/18/24 11/27/24 History tablet,extended release (Tylenol 8 Hour) ezetimibe 10 mg tablet 10 mg PO DAILY 09/18/24 11/27/24 History metoprolol tartrate 25 mg tablet 12.5 mg (1/2 x 25 mg) PO DAILY #45 10/02/24 11/27/24 Rx tabs Allergies Allergy/AdvReac Type Severity Reaction Status Date / Time iohexol (From Omnipaque) Allergy Severe Anaphylactic Verified 09/18/24 12:54 Shock lisinopril Allergy Severe Swelling Verified 11/27/24 20:02 of Lip/Tongue/Throat clotrimazole AdvReac Unknown Rash Verified 09/18/24 12:54 niacin AdvReac Unknown Rash Verified 09/18/24 12:54 Vital Signs Vital Signs - 24 hr 11/27/24 18:39 11/27/24 20:00 11/27/24 21:00 Temperature 99.7 F H Pulse Rate 90 89 Respiratory Rate 17 17 Blood Pressure 149/88 H 154/91 H Pulse Oximetry 100 92 Oxygen Delivery Room Air Fraction of Inspired Oxygen 11/27/24 21:15 11/27/24 22:00 11/27/24 22:00 Temperature 99.9 F H Pulse Rate 88 95 95 Respiratory Rate 16 Blood Pressure 156/90 H Pulse Oximetry 96 93 93 Oxygen Delivery Room Air CPAP Fraction of Inspired Oxygen 21 11/28/24 02:06 11/28/24 05:38 11/28/24 08:00 Temperature 97.6 F Pulse Rate 76 Respiratory Rate 14 Blood Pressure 145/81 H Pulse Oximetry 98 Oxygen Delivery CPAP Room Air Fraction of Inspired Oxygen 11/28/24 09:48 Temperature Pulse Rate 76 Respiratory Rate Blood Pressure Pulse Oximetry Oxygen Delivery Fraction of Inspired Oxygen Exam Const: General: cooperative and healthy appearing Resp: Effort & Inspection: normal respiratory effort and able to speak in complete sentences Auscultation: clear to auscultation bilaterally Cardio: Rate: regular rate Rhythm: regular rhythm GI: Inspection: normal to inspection GI Palp: No No hepatosplenomegaly present Auscultation: normal bowel sounds Rectal Exam: deferred Skin: General skin exam: normal color Psych: Appearance: grossly normal Mental Status: mental status grossly normal Results Labs 11/28/24 05:53 11/28/24 05:53 Labs: Short CBC 11/28/24 Range/Units 05:53 WBC 7.6 (4.5-10.0) K/mm3 Hgb 11.6 L (14.0-18.0) g/dL Hct 36.1 L (42.0-52.0) % Plt Count 172 (150-375) k/mm3 BMP 11/28/24 05:53 Sodium 133 L Potassium 4.0 Chloride 98 Carbon Dioxide 29 BUN 22 H Creatinine 1.07 Glucose 111 H Calcium 9.8 Urine 11/27/24 Range/Units 17:16 Urine Color Yellow (Yellow) Urine Appearance Cloudy H (Clear) Urine pH 8.0 (5.0-9.0) Ur Specific [place] 1.019 (1.001-1.035) Urine Protein 2+ H (Negative) mg/dL Urine Glucose (UA) Negative (Negative) mg/dL
[2024-11-28] MEDS: NORTRIPTYLINE HCL 25 MG CAPSULE BY MOUTH (20:56)
[2024-11-28] MEDS: SENNA/DOCUSATE SODIUM TABLET 1 TAB PO (20:56)
[2024-11-28 21:37] VITALS: BP 109/66; PULSE 72; RESP 18; TEMP 36.8; O2SAT 98
[2024-11-28 22:00] VITALS: PULSE 89; O2SAT 94
--- NOTE | 2024-11-28 22:54 | WPDURCON ---
Assessment and Plan Assessment and plan (1) Urinary retention: Code(s): R33.9 - Retention of urine, unspecified Status: Acute (2) Chronic idiopathic constipation: Code(s): K59.04 - Chronic idiopathic constipation Status: Acute Plan 74y old male with urinary retention in the setting of chronic constipation and hx of bph s/p TURP. -CT AP reveals Kidneys: Chronic bilateral perinephric stranding.Right kidney- No hydronephrosis. No definite renal stones. Small calcification appears vascular. Enlarging exophytic simple cysts. Left kidney- No hydronephrosis. No renal stones. Enlarging simple exophytic cyst.Urinary bladder: A few intraluminal gas locules. Prostate: Unremarkable. Colon: Diverticula. Normal caliber and wall thickness. Normal RLQ appendix. Rectum filled with stool. Moderate volume colonic stool. -There were reports from staff of very difficult harmon insertion and three separate nurse attempts to place catheter. It is noted that on inflation of balloon the patient had a lot of pain and started to bleed from the meatus around the catheter. Urine in harmon bag is dark yellow. I deflated the balloon and advanced the catheter fully and reinflated the balloon with no discomfort from the patient. He tolerated catheter manipulation perfectly. -manage constipation and maintain bowel regimen -maintain harmon -WBC and kidney function WNL. -Once bowel regimen has been established and constipation resolved, may do TOV prior to discharge. Urology Consult Note HPI Date Seen: 11/28/24 Time Seen: 16:15 Requesting Physician: Jane Carbone MD Primary Care Provider: Zackary Grider DO Consult Narrative Narrative: Daryl Hay is a 74 year old male with past medical history of hypertension, TIA, throat cancer, BPH, diverticulitis, CAD and COPD the hospital with acute abdominal pain. Patient states that he has been unable to have a bowel movement for the last 5 days and now has urinary retention. Patient states that he is now on able to void and this may came to the emergency room. He states that he was taking Senokot and MiraLax without results. Patient denies fevers chills nausea or vomiting. Patient's lab work shows leukopenia at 3.4, hemoglobin of 12.2, sodium of 136, BUN of 21, glucose of 135, calcium 10.7, UA is cloudy with trace leukocyte esterase, 50-100 rbc's, CT abdomen pelvis show Stercoral colitis in constipation. Patient had several tap water enemas in emergency room with no results. He was started on Flagyl and Rocephin. 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 H/O gastroesophageal reflux (GERD) Glaucoma Osteoarthritis TIA (transient ischemic attack) Head and neck cancer History of tobacco abuse Obstructive sleep apnea Shingles Anemia Anxiety Depression Fracture vertebrae Arthritis BPH (benign prostatic hyperplasia) GERD (gastroesophageal reflux disease) Ulcer Diverticulitis Sleep apnea Pneumonia Bronchitis Asthma COPD (chronic obstructive pulmonary disease) Hyperlipidemia Hypertension CAD (coronary artery disease) Seasonal allergies Cataract History of throat cancer Surgical History Surgical History History of cataract surgery H/O Spinal surgery neck surgery with cage, lumbar dissection History of orthopedic surgery bilateral rotator cuff repair, sacroiliac joint surgery Hx of vasectomy History of head, eyes, ears, nose, and throat (HEENT) surgery vocal cord surgery H/O blepharoplasty bilateral History of biopsy throat Family History Family History Father Hypertension Family history of chronic obstructive pulmonary disease Family history of coronary artery disease Mother Hypertension Family history of malignant neoplasm of breast in first degree relative Family history of congestive heart failure Sibling Acute myocardial infarction Family history of cardiac disorder Family history of coronary artery disease Grandparent Cerebrovascular accident Parkinsons Social History Social History (Updated 09/18/24 @ 12:34 by Josie Valles CMA) Smoking packs per day: 3 Smoking cigarettes per day: 60.0 Years smoked: 15 Smoking pack-years: 45.00 Smoking status: Former smoker Tobacco type: cigarettes Second hand tobacco smoke exposure: No Smoking end date: 02/20/83 Additional smoking assessment comments: QUIT 1983 Alcohol intake: current Drinks per week: 2 Alcohol use details: Beer Substance use: never Substance use type: does not use Other substance usage details: does have a marijuana card Last use: 07/22/22 Do You Feel Safe in your Home?: Yes Lack of Transportation: No Lack of Food: Never True Current Housing: I Have Housing Concerned About Future Housing: No Difficulty Paying Gas/Electric Bills: No Difficulty Paying for Meds: No Currently Unemployed: No Education: High School Diploma/GED Difficulty w/ Childcare or Family Care: Decline to Answer Living arrangements: with family Gender identity (if verbalized by the patient): Male Spiritual care concerns: No Meds Home Medications and Allergies Home Medications ?Medication ?Instructions ?Recorded ?Confirmed ?Type Fiber Supplement 2 cap PO .evening 01/06/19 11/27/24 History uatiwefn-dnqeppto-hcviw acid 400 1 tablet PO DAILY 01/06/19 11/27/24 History mcg-vit K 20 mcg-lycop 300 mcg tablet (Men's Multivitamin) losartan 50 mg tablet 50 mg PO DAILY 02/07/20 11/27/24 History albuterol sulfate 90 mcg/actuation 2 puff inhalation PRN PRN Wheezing 03/06/20 11/27/24 History aerosol inhaler (ProAir HFA) aspirin 81 mg tablet,delayed 81 mg PO DAILY 03/06/20 11/27/24 History release (Ginny Low Dose Aspirin) atorvastatin 40 mg tablet 40 mg PO QAM 08/12/20 11/27/24 History cyclosporine 0.05 % eye drops 1 drp EACH EYE Q12H 07/12/21 11/27/24 History (Restasis MultiDose) fenofibrate 54 mg tablet 52 mg (0.963 x 54 mg) PO QAM #90 08/30/22 11/27/24 Rx tabs isosorbide mononitrate 30 mg 30 mg PO DAILY 09/12/23 11/27/24 History tablet,extended release 24 hr trazodone 100 mg tablet 100 mg PO HS #90 tabs 10/09/23 11/27/24 Rx omeprazole 40 mg capsule,delayed See Rx Instructions .Route 03/11/24 11/27/24 Rx release .COMPLEX #90 caps oxybutynin chloride 10 mg 10 mg PO DAILY #90 tabs 03/12/24 11/27/24 Rx tablet,extended release 24 hr cetirizine 10 mg tablet 5 mg PO DAILY 07/24/24 11/27/24 History psyllium husk (with sugar) 3.4 1 tsp PO QAM PRN constipation 07/24/24 11/27/24 History gram oral powder packet (Metamucil (with sugar)) gabapentin 300 mg capsule 900 mg (3 x 300 mg) PO TID #810 07/29/24 11/27/24 Rx caps baclofen 5 mg tablet 5 mg PO TID #270 tabs 08/08/24 11/27/24 Rx nortriptyline 25 mg capsule See Rx Instructions .Route 08/13/24 11/27/24 Rx .COMPLEX #90 caps fluticasone 250 mcg-salmeterol 50 1 inh inhalation BID #60 ea 09/16/24 11/27/24 Rx mcg/dose blistr powdr for inhalation (Wixela Inhub) acetaminophen 650 mg 1,000 mg PO TID 09/18/24 11/27/24 History tablet,extended release (Tylenol 8 Hour) ezetimibe 10 mg tablet 10 mg PO DAILY 09/18/24 11/27/24 History metoprolol tartrate 25 mg tablet 12.5 mg (1/2 x 25 mg) PO DAILY #45 10/02/24 11/27/24 Rx tabs Allergies Allergy/AdvReac Type Severity Reaction Status Date / Time iohexol (From LiveOfficeipaque) Allergy Severe Anaphylactic Verified 09/18/24 12:54 Shock lisinopril Allergy Severe Swelling Verified 11/27/24 20:02 of Lip/Tongue/Throat clotrimazole AdvReac Unknown Rash Verified 09/18/24 12:54 niacin AdvReac Unknown Rash Verified 09/18/24 12:54 Vital Signs Vital Signs - 24 hr 11/28/24 02:06 11/28/24 05:38 11/28/24 08:00 Temperature 97.6 F Pulse Rate 76 Respiratory Rate 14 Blood Pressure 145/81 H Pulse Oximetry 98 Oxygen Delivery CPAP Room Air 11/28/24 09:48 11/28/24 14:00 11/28/24 20:00 Temperature 97.4 F L Pulse Rate 76 74 Respiratory Rate 17 Blood Pressure 124/58 L Pulse Oximetry 98 Oxygen Delivery Room Air 11/28/24 21:37 Temperature 98.3 F Pulse Rate 72 Respiratory Rate 18 Blood Pressure 109/66 Pulse Oximetry 98 Oxygen Delivery Exam Const: General: comfortable and no acute distress HENMT: Mouth: Yes moist mucous membranes abnormal Eyes: General: appearance normal, both eyes and all related structures Pupils: Equal, round and reactive pupils present Neck: Neck: supple Resp: Effort & Inspection: normal respiratory effort : Male General Exam: Yes normal external exam Urinary Catheter: Urinary Catheter: patent and draining and other (dark yellow urine) Skin: General skin exam: normal color Neuro: Speech: normal speech Psych: Speech and movement: Normal speech and movement present Results Labs 11/28/24 05:53 11/28/24 05:53 Labs: Short CBC 11/28/24 Range/Units 05:53 WBC 7.6 (4.5-10.0) K/mm3 Hgb 11.6 L (14.0-18.0) g/dL Hct 36.1 L (42.0-52.0) % Plt Count 172 (150-375) k/mm3 [place] 11/28/24 05:53 Sodium 133 L Potassium 4.0 Chloride 98 Carbon Dioxide 29 BUN 22 H Creatinine 1.07 Glucose 111 H Calcium 9.8
[2024-11-29] VITALS (7 sets, daily range): BP systolic 102–153; BP diastolic 67–95; PULSE 62–94; RESP 16–20; TEMP 36.3–36.8; O2SAT 94–99
[2024-11-29] MEDS: KETOROLAC 15 MG/ML VIAL (*BKC) IV PUSH ×3 (05:55→18:50)
[2024-11-29] MEDS: BACLOFEN 5 MG TABLET PO ×3 (05:55→21:23)
[2024-11-29] MEDS: GABAPENTIN 300 MG CAPSULE 900 MG PO ×3 (05:55→21:24)
[2024-11-29] MEDS: LINACLOTIDE 145 MCG CAPSULE PO (05:55)
[2024-11-29] MEDS: ACETAMINOPHEN 500 MG TABLET 1000 MG PO ×3 (05:55→21:22)
[2024-11-29] MEDS: SODIUM CHLORIDE 0.9% IV 1,000 ML 125 ML IV CONT ×2 (06:44→16:00)
--- NOTE | 2024-11-29 08:26 | P.PNIM_ITS ---
Progress Note: A&P Assessment and Plan (1) Constipation: Code(s): K59.00 - Constipation, unspecified Status: Acute Assessment and Plan: * Lactulose enema x1 * Oral lactulose * Daily senna * IV fluids for hydration * Clear liquid diet * Avoid narcotics as it can make constipation worse * Had passage of bowel movements evening of admission * GI consulted * Continue Miralax 17g daily, Linzess 145 mcg q AM (2) Urinary retention: Code(s): R33.9 - Retention of urine, unspecified Status: Acute Assessment and Plan: * Likely 2/2 severe constipation * Atkins catheter for 48 hours * Start Flomax * Lidocaine lubrication * Urology consult * Manage constipation * TOV prior to discharge (3) Hypertension: Code(s): I10 - Essential (primary) hypertension Status: Chronic Assessment and Plan: * Continue Cozaar (4) CAD (coronary artery disease): Code(s): I25.10 - Atherosclerotic heart disease of [place] coronary artery without angina pectoris Status: Acute Assessment and Plan: * Continue Zetia, aspirin, Imdur, metoprolol, losartan (5) BPH (benign prostatic hyperplasia): Code(s): N40.0 - Benign prostatic hyperplasia without lower urinary tract symptoms Status: Acute Assessment and Plan: * Patient will need to be discharged home on Flomax Subjective Date/time seen: 11/29/24 08:26 Interval history: 74 year old male past medical history of hypertension, TIA, throat cancer, BPH, diverticulitis, CAD and COPD the hospital with acute abdominal pain. Patient states that he has been unable to have a bowel movement for the last 5 days and now has urinary retention. 11/29/2024 Patient sitting comfortably at bedside at time of examination. Still endorsing constipation (has not had bowel movement since Monday afternoon). Continue bowel regimen per GI. Urology consulted regarding urinary retention - maintain bowel regimen and constipation, void trial prior to discharge. No other acute concerns at this time. Review of Systems Review of Systems: 12 systems were reviewed and are negativ e except for as per HPI. Exam Narrative: General: well appearing, appears stated age. HEENT: normocephalic, atraumatic. Mucous membranes moist. EOMI, PERRLA, bilateral sclera anicteric, no conjunctival injection. Neck supple without JVD, lymphadenopathy, or bruit. Respiratory: clear to auscultation bilaterally. No rales/rhonchi/wheezes. Cardiovascular: Regular rate and rhythm, normal S1-S2 upon auscultation. No murmurs, rubs, or clicks. PMI is nondisplaced, capillary refill less than 3 second. Abdomen: Distended firm, round, no pulsatile masses, nondistended and No rebound, no guarding. No CVA tenderness, no hepatosplenomegaly. Bowel sounds present to all four quadrants. No high pitch or tinkling sounds, resonant to percussion. Mildly tender Extremities: No cyanosis, clubbing, or edema present. Pulses are palpable 2/2. Active ROM to all four extremities. Neuro: Alert and orientated x 4. PERRLA. Cranial nerves 2-12 intact without focal deficit. Skin: Warm, dry, and intact, without rash, erythema, or lesion. Psych: pleasant, cooperative, normal speech, normal affect, no hallucinations, no dysarthia Objective Data Vital Signs Vital Signs: Vital Signs - 24 hr 11/28/24 09:48 11/28/24 14:00 11/28/24 20:00 Temperature 97.4 F L Pulse Rate 76 74 Respiratory Rate 17 Blood Pressure 124/58 L Pulse Oximetry 98 Oxygen Delivery Room Air 11/28/24 21:37 11/28/24 22:00 11/29/24 03:10 Temperature 98.3 F Pulse Rate 72 89 94 Respiratory Rate 18 Blood Pressure 109/66 Pulse Oximetry 98 94 94 Oxygen Delivery CPAP CPAP 11/29/24 06:00 Temperature 97.7 F Pulse Rate 70 Respiratory Rate 18 Blood Pressure 117/72 Pulse Oximetry 96 Oxygen Delivery Intake/Output Intake/Output: Intake & Output 11/26/24 11/27/24 11/28/24 11/29/24 23:59 23:59 23:59 23:59 Intake Total 150 4770 902.1 Output Total 750 950 850 Balance -600 3820 52.1 Meds/Results Medications: Active Medications Generic Name Dose Route Start Last Admin Trade Name Freq PRN Reason Stop Dose Admin Acetaminophen 1,000 mg 11/28/24 06:00 11/29/24 05:55 Acetaminophen 500 Mg Tablet PO 1,000 mg Q8HR EILEEN Administration Albuterol 2 puff 11/27/24 22:19 11/28/24 14:26 Albuterol Sulfate (*Sp) Aerosol 1 Puff INHALATION 2 puff Q4HRT PRN Administration Wheezing Aspirin 81 mg 11/28/24 09:00 11/28/24 09:48 Aspirin 81 Mg Enteric Tablet PO 81 mg DAILY EILEEN Administration Atorvastatin Calcium 40 mg 11/28/24 09:00 11/28/24 09:45 Atorvastatin 40 Mg Tablet PO 40 mg QAM EILEEN Administration Baclofen 5 mg 11/28/24 06:00 11/29/24 05:55 Baclofen 5 Mg Tablet PO 5 mg Q8HR EILEEN Administration Cyclosporine 1 drop 11/27/24 22:20 11/28/24 20:56 Cyclosporine 0.4 Ml Ophth Solution EACH EYE 1 drop Q12HR EILEEN Administration Ezetimibe 10 mg 11/28/24 09:00 11/28/24 09:45 Ezetimibe 10 Mg Tablet PO 10 mg DAILY EILEEN Administration Enoxaparin Sodium 40 mg 11/28/24 09:00 11/28/24 09:45 Enoxaparin 40 Mg/0.4 Ml Syringe SUB-Q 40 mg DAILY EILEEN Administration Gabapentin 900 mg 11/28/24 06:00 11/29/24 05:55 Gabapentin 300 Mg Capsule PO 900 mg Q8HR EILEEN Administration Sodium Chloride 1,000 mls @ 125 mls/hr 11/27/24 19:15 11/29/24 06:44 Normal Saline Iv IV CONT 125 mls/hr .Q8H EILEEN Administration Isosorbide Mononitrate 30 mg 11/28/24 09:00 11/28/24 09:44 Isosorbide Mononitrate 30 Mg Tab.Er.24h PO 30 mg DAILY EILEEN Administration Ketorolac Tromethamine 15 mg 11/27/24 20:00 11/29/24 05:55 Ketorolac 15 Mg/Ml Vial (*Bk) IV PUSH 15 mg Q6HR EILEEN Administration Linaclotide 145 mcg 11/29/24 06:30 11/29/24 05:55 Linaclotide 145 Mcg Capsule PO 145 mcg DAILY@0630 EILEEN Administration Loratadine 10 mg 11/28/24 09:00 11/28/24 09:49 Loratadine 10 Mg Tablet PO 10 mg QAM EILEEN Administration Losartan Potassium 50 mg 11/28/24 09:00 11/28/24 09:49 Losartan Potassium 50 Mg Tablet PO 50 mg DAILY EILEEN Administration Metoprolol Tartrate 12.5 mg 11/28/24 09:00 11/28/24 09:48 Metoprolol Tartrate 12.5 Mg Tablet PO 12.5 mg DAILY EILEEN Administration Nortriptyline HCl 25 mg 11/27/24 22:20 11/28/24 20:56 Nortriptyline Hcl 25 Mg Capsule BY MOUTH 25 mg QHS EILEEN Administration Oxybutynin Chloride 10 mg 11/28/24 09:00 11/28/24 09:43 Oxybutynin Chloride Xl 5 Mg Tab.Er.24 PO 10 mg DAILY EILEEN Administration Pantoprazole Sodium 40 mg 11/28/24 09:00 11/28/24 20:57 Pantoprazole 40 Mg Tablet PO 40 mg Q12HR EILEEN Administration Polyethylene Glycol 17 gm 11/29/24 09:00 Polyethylene Glycol 3350 17 Gm Powd.Pack PO QAM EILEEN Senna/Docusate Sodium 1 tab 11/27/24 21:00 11/28/24 20:56 Senna/Docusate Sodium Tablet PO 1 tab HS EILEEN Administration Tamsulosin HCl 0.4 mg 11/28/24 09:00 11/28/24 09:49 Tamsulosin Hcl 0.4 Mg Capsule PO 0.4 mg QAM EILEEN Administration Trazodone HCl 100 mg 11/27/24 22:45 11/28/24 20:57 Trazodone Hcl 50 Mg Tablet PO 100 mg HS EILEEN Administration Radiology Results: ITS Impressions Abdomen/Pelvis CT 11/27/24 11:16 IMPRESSION: 1. Stercoral colitis. 2. Probable constipation. Quality VTE Prophylaxis VTE prophylaxis: mechanical ordered and pharmacologic ordered
--- NOTE | 2024-11-29 09:16 | WPDUROPN2 ---
Progress Note: A&P Assessment and Plan (1) Urinary retention: Code(s): R33.9 - Retention of urine, unspecified Status: Acute (2) Chronic idiopathic constipation: Code(s): K59.04 - Chronic idiopathic constipation Status: Acute Plan 74y old male with urinary retention in the setting of chronic constipation and hx of bph s/p TURP. -CT AP reveals Kidneys: Chronic bilateral perinephric stranding.Right kidney- No hydronephrosis. No definite renal stones. Small calcification appears vascular. Enlarging exophytic simple cysts. Left kidney- No hydronephrosis. No renal stones. Enlarging simple exophytic cyst.Urinary bladder: A few intraluminal gas locules. Prostate: Unremarkable. Colon: Diverticula. Normal caliber and wall thickness. Normal RLQ appendix. Rectum filled with stool. Moderate volume colonic stool. -manage constipation and maintain bowel regimen. no BM yet. -maintain harmon at this time. -WBC and kidney function WNL yesterday. -Once bowel regimen has been established and constipation resolved, may do TOV prior to discharge. Subjective Subjective Date/Time Seen: 11/29/24 09:16 Interval history: 74 year old male past medical history of hypertension, TIA, throat cancer, BPH, diverticulitis, CAD and COPD the hospital with acute abdominal pain. Patient states that he has been unable to have a bowel movement for the last 5 days and now has urinary retention. Patient sitting comfortably in bed at time of examination. Still endorsing constipation and has not had bm. Continue bowel regimen per GI. Review of Systems Review of Systems: All systems reviewed & are unremarkable except as noted in HPI and below Exam Const: General: comfortable and no acute distress HENMT: Mouth: Yes moist mucous membranes abnormal Eyes: General: appearance normal, both eyes and all related structures Pupils: Equal, round and reactive pupils present Neck: Neck: supple Resp: Effort & Inspection: normal respiratory effort : Male General Exam: Yes normal external exam Urinary Catheter: Urinary Catheter: patent and draining and other (dark yellow urine) Skin: General skin exam: normal color Neuro: Cranial nerves: Yes Equal, round and reactive pupils present Speech: normal speech Psych: Speech and movement: Normal speech and movement present Objective Data Vital Signs Vital Signs: Vital Signs - 24 hr 11/28/24 09:48 11/28/24 14:00 11/28/24 20:00 Temperature 97.4 F L Pulse Rate 76 74 Respiratory Rate 17 Blood Pressure 124/58 L Pulse Oximetry 98 Oxygen Delivery Room Air 11/28/24 21:37 11/28/24 22:00 11/29/24 03:10 Temperature 98.3 F Pulse Rate 72 89 94 Respiratory Rate 18 Blood Pressure 109/66 Pulse Oximetry 98 94 94 Oxygen Delivery CPAP CPAP 11/29/24 06:00 Temperature 97.7 F Pulse Rate 70 Respiratory Rate 18 Blood Pressure 117/72 Pulse Oximetry 96 Oxygen Delivery Intake/Output Intake/Output: Intake & Output 11/26/24 11/27/24 11/28/24 11/29/24 23:59 23:59 23:59 23:59 Intake Total 150 4770 902.1 Output Total 750 950 850 Balance -600 3820 52.1 Meds/Results Medications: Active Medications Generic Name Dose Route Start Last Admin Trade Name Freq PRN Reason Stop Dose Admin Acetaminophen 1,000 mg 11/28/24 06:00 11/29/24 05:55 Acetaminophen 500 Mg Tablet PO 1,000 mg Q8HR EILEEN Administration Albuterol 2 puff 11/27/24 22:19 11/28/24 14:26 Albuterol Sulfate (*Sp) Aerosol 1 Puff INHALATION 2 puff Q4HRT PRN Administration Wheezing Aspirin 81 mg 11/28/24 09:00 11/28/24 09:48 Aspirin 81 Mg Enteric Tablet PO 81 mg DAILY EILEEN Administration Atorvastatin Calcium 40 mg 11/28/24 09:00 11/28/24 09:45 Atorvastatin 40 Mg Tablet PO 40 mg QAM EILEEN Administration Baclofen 5 mg 11/28/24 06:00 11/29/24 05:55 Baclofen 5 Mg Tablet PO 5 mg Q8HR EILEEN Administration Cyclosporine 1 drop 11/27/24 22:20 11/28/24 20:56 Cyclosporine 0.4 Ml Ophth Solution EACH EYE 1 drop Q12HR EILEEN Administration Ezetimibe 10 mg 11/28/24 09:00 11/28/24 09:45 Ezetimibe 10 Mg Tablet PO 10 mg DAILY EILEEN Administration Enoxaparin Sodium 40 mg 11/28/24 09:00 11/28/24 09:45 Enoxaparin 40 Mg/0.4 Ml Syringe SUB-Q 40 mg DAILY EILEEN Administration Gabapentin 900 mg 11/28/24 06:00 11/29/24 05:55 Gabapentin 300 Mg Capsule PO 900 mg Q8HR EILEEN Administration Sodium Chloride 1,000 mls @ 125 mls/hr 11/27/24 19:15 11/29/24 06:44 Normal Saline Iv IV CONT 125 mls/hr .Q8H EILEEN Administration Isosorbide Mononitrate 30 mg 11/28/24 09:00 11/28/24 09:44 Isosorbide Mononitrate 30 Mg Tab.Er.24h PO 30 mg DAILY EILEEN Administration Ketorolac Tromethamine 15 mg 11/27/24 20:00 11/29/24 05:55 Ketorolac 15 Mg/Ml Vial (*Bk) IV PUSH 15 mg Q6HR EILEEN Administration Linaclotide 145 mcg 11/29/24 06:30 11/29/24 05:55 Linaclotide 145 Mcg Capsule PO 145 mcg DAILY@0630 EILEEN Administration Loratadine 10 mg 11/28/24 09:00 11/28/24 09:49 Loratadine 10 Mg Tablet PO 10 mg QAM EILEEN Administration Losartan Potassium 50 mg 11/28/24 09:00 11/28/24 09:49 Losartan Potassium 50 Mg Tablet PO 50 mg DAILY EILEEN Administration Metoprolol Tartrate 12.5 mg 11/28/24 09:00 11/28/24 09:48 Metoprolol Tartrate 12.5 Mg Tablet PO 12.5 mg DAILY EILEEN Administration Nortriptyline HCl 25 mg 11/27/24 22:20 11/28/24 20:56 Nortriptyline Hcl 25 Mg Capsule BY MOUTH 25 mg QHS EILEEN Administration Oxybutynin Chloride 10 mg 11/28/24 09:00 11/28/24 09:43 Oxybutynin Chloride Xl 5 Mg Tab.Er.24 PO 10 mg DAILY EILEEN Administration Pantoprazole Sodium 40 mg 11/28/24 09:00 11/28/24 20:57 Pantoprazole 40 Mg Tablet PO 40 mg Q12HR EILEEN Administration Polyethylene Glycol 17 gm 11/29/24 09:00 Polyethylene Glycol 3350 17 Gm Powd.Pack PO QAM EILEEN Senna/Docusate Sodium 1 tab 11/27/24 21:00 11/28/24 20:56 Senna/Docusate Sodium Tablet PO 1 tab HS EILEEN Administration Tamsulosin HCl 0.4 mg 11/28/24 09:00 11/28/24 09:49 Tamsulosin Hcl 0.4 Mg Capsule PO 0.4 mg QAM EILEEN Administration Trazodone HCl 100 mg 11/27/24 22:45 11/28/24 20:57 Trazodone Hcl 50 Mg Tablet PO 100 mg HS EILEEN Administration Radiology Results: ITS Impressions Abdomen/Pelvis CT 11/27/24 11:16 IMPRESSION: 1. Stercoral colitis. 2. Probable constipation.
[2024-11-29] MEDS: ENOXAPARIN 40 MG/0.4 ML SYRINGE SUB-Q (09:42)
[2024-11-29] MEDS: cycloSPORINE 0.4 ML OPHTH SOLUTION 1 DROP EACH EYE ×2 (09:42→21:34)
[2024-11-29] MEDS: ASPIRIN 81 MG ENTERIC TABLET PO (09:43)
[2024-11-29] MEDS: PANTOPRAZOLE 40 MG TABLET PO ×2 (09:43→21:22)
[2024-11-29] MEDS: ATORVASTATIN 40 MG TABLET PO (09:43)
[2024-11-29] MEDS: oxyBUTYnin CHLORIDE XL 5 MG TAB.ER.24 10 MG PO (09:43)
[2024-11-29] MEDS: ISOSORBIDE MONONITRATE 30 MG TAB.ER.24H PO (09:44)
[2024-11-29] MEDS: TAMSULOSIN HCL 0.4 MG CAPSULE PO (09:44)
[2024-11-29] MEDS: LOSARTAN POTASSIUM 50 MG TABLET PO (09:44)
[2024-11-29] MEDS: EZETIMIBE 10 MG TABLET PO (09:44)
[2024-11-29] MEDS: LORATADINE 10 MG TABLET PO (09:44)
[2024-11-29] MEDS: METOPROLOL TARTRATE 12.5 MG TABLET PO (09:44)
[2024-11-29] MEDS: SENNA/DOCUSATE SODIUM TABLET 1 TAB PO (21:23)
[2024-11-29] MEDS: NORTRIPTYLINE HCL 25 MG CAPSULE BY MOUTH (21:23)
[2024-11-30] MEDS: KETOROLAC 15 MG/ML VIAL (*BKC) IV PUSH ×4 (00:40→19:30)
[2024-11-30] MEDS: SODIUM CHLORIDE 0.9% IV 1,000 ML 125 ML IV CONT ×3 (00:41→17:11)
[2024-11-30] MEDS: WATER FOR IRRIGATION, STERILE 1,000 ML BOTTLE 1000 ML (00:42)
[2024-11-30] MEDS: GABAPENTIN 300 MG CAPSULE 900 MG PO ×3 (05:49→21:06)
[2024-11-30] MEDS: BACLOFEN 5 MG TABLET PO ×3 (05:49→21:08)
[2024-11-30] MEDS: ACETAMINOPHEN 500 MG TABLET 1000 MG PO ×3 (05:49→21:06)
[2024-11-30] MEDS: LINACLOTIDE 145 MCG CAPSULE PO (05:50)
[2024-11-30 06:00] VITALS: BP 153/94; PULSE 69; RESP 20; TEMP 36.5; O2SAT 94
[2024-11-30] MEDS: ISOSORBIDE MONONITRATE 30 MG TAB.ER.24H PO (09:02)
[2024-11-30] MEDS: ENOXAPARIN 40 MG/0.4 ML SYRINGE SUB-Q (09:02)
[2024-11-30] MEDS: PANTOPRAZOLE 40 MG TABLET PO ×2 (09:02→21:06)
[2024-11-30 09:03] VITALS: PULSE 69
[2024-11-30] MEDS: LORATADINE 10 MG TABLET PO (09:03)
[2024-11-30] MEDS: ASPIRIN 81 MG ENTERIC TABLET PO (09:03)
[2024-11-30] MEDS: TAMSULOSIN HCL 0.4 MG CAPSULE PO (09:03)
[2024-11-30] MEDS: cycloSPORINE 0.4 ML OPHTH SOLUTION 1 DROP EACH EYE ×2 (09:03→21:08)
[2024-11-30] MEDS: EZETIMIBE 10 MG TABLET PO (09:03)
[2024-11-30] MEDS: LOSARTAN POTASSIUM 50 MG TABLET PO (09:03)
[2024-11-30] MEDS: METOPROLOL TARTRATE 12.5 MG TABLET PO (09:03)
[2024-11-30] MEDS: ATORVASTATIN 40 MG TABLET PO (09:03)
[2024-11-30] MEDS: oxyBUTYnin CHLORIDE XL 5 MG TAB.ER.24 10 MG PO (09:03)
[2024-11-30 09:53] VITALS: O2SAT 94
[2024-11-30 15:25] VITALS: BP 122/78; PULSE 62; RESP 18; TEMP 36.6; O2SAT 97
--- NOTE | 2024-11-30 15:37 | P.PNIM_ITS ---
Progress Note: A&P Assessment and Plan (1) Constipation: Code(s): K59.00 - Constipation, unspecified Status: Acute Assessment and Plan: * Lactulose enema x1 * Oral lactulose * Daily senna * IV fluids for hydration * Clear liquid diet * Avoid narcotics as it can make constipation worse * Had passage of bowel movements evening of admission * GI consulted * Continue Miralax 17g daily, Linzess 145 mcg q AM (2) Urinary retention: Code(s): R33.9 - Retention of urine, unspecified Status: Acute Assessment and Plan: * Likely 2/2 severe constipation * Atkins catheter for 48 hours * Start Flomax * Lidocaine lubrication * Urology consult * Manage constipation * TOV prior to discharge (3) Hypertension: Code(s): I10 - Essential (primary) hypertension Status: Chronic Assessment and Plan: * Continue Cozaar (4) CAD (coronary artery disease): Code(s): I25.10 - Atherosclerotic heart disease of [place] coronary artery without angina pectoris Status: Acute Assessment and Plan: * Continue Zetia, aspirin, Imdur, metoprolol, losartan (5) BPH (benign prostatic hyperplasia): Code(s): N40.0 - Benign prostatic hyperplasia without lower urinary tract symptoms Status: Acute Assessment and Plan: * Patient will need to be discharged home on Flomax Plan today patient did have two small BM but still feels abdomen pain, passing gas, feels like he will have another BM soon, will give miralax and colace and monitor, patient is present and gave updates Subjective Date/time seen: 11/30/24 15:37 Interval history: 74 year old male past medical history of hypertension, TIA, throat cancer, BPH, diverticulitis, CAD and COPD the hospital with acute abdominal pain. Patient states that he has been unable to have a bowel movement for the last 5 days and now has urinary retention. 11/29/2024 Patient sitting comfortably at bedside at time of examination. Still endorsing constipation (has not had bowel movement since Monday afternoon). Continue bowel regimen per GI. Urology consulted regarding urinary retention - maintain bowel regimen and constipation, void trial prior to discharge. No other acute concerns at this time. today patient did have two small BM but still feels abdomen pain, passing gas, feels like he will have another BM soon, will give miralax and colace and monitor, patient is present and gave updates Review of Systems Review of Systems: 12 systems were reviewed and are negativ e except for as per HPI. Objective Data Vital Signs Vital Signs: Vital Signs - 24 hr 11/29/24 20:00 11/29/24 22:00 11/29/24 22:37 Temperature 36.8 C Pulse Rate 80 68 80 Respiratory Rate 20 20 Blood Pressure 153/95 H Pulse Oximetry 97 99 97 Oxygen Delivery CPAP CPAP Fraction of Inspired Oxygen 21 11/30/24 02:49 11/30/24 06:00 11/30/24 09:03 Temperature 36.5 C Pulse Rate 69 69 Respiratory Rate 20 Blood Pressure 153/94 H Pulse Oximetry 94 Oxygen Delivery CPAP Fraction of Inspired Oxygen 11/30/24 09:53 11/30/24 11:12 Temperature Pulse Rate Respiratory Rate Blood Pressure Pulse Oximetry 94 Oxygen Delivery Room Air Room Air Fraction of Inspired Oxygen Intake/Output Intake/Output: Intake & Output 11/27/24 11/28/24 11/29/24 11/30/24 23:59 23:59 23:59 23:59 Intake Total 150 4770 2862.1 3390 Output Total 815 503 2650 2650 Balance -600 3820 1012.1 740 Meds/Results Medications: Active Medications Generic Name Dose Route Start Last Admin Trade Name Freq PRN Reason Stop Dose Admin Acetaminophen 1,000 mg 11/28/24 06:00 11/30/24 14:54 Acetaminophen 500 Mg Tablet PO 1,000 mg Q8HR EILEEN Administration Albuterol 2 puff 11/27/24 22:19 11/28/24 14:26 Albuterol Sulfate (*Sp) Aerosol 1 Puff INHALATION 2 puff Q4HRT PRN Administration Wheezing Aspirin 81 mg 11/28/24 09:00 11/30/24 09:03 Aspirin 81 Mg Enteric Tablet PO 81 mg DAILY EILEEN Administration Atorvastatin Calcium 40 mg 11/28/24 09:00 11/30/24 09:03 Atorvastatin 40 Mg Tablet PO 40 mg QAM EILEEN Administration Baclofen 5 mg 11/28/24 06:00 11/30/24 14:54 Baclofen 5 Mg Tablet PO 5 mg Q8HR EILEEN Administration Cyclosporine 1 drop 11/27/24 22:20 11/30/24 09:03 Cyclosporine 0.4 Ml Ophth Solution EACH EYE 1 drop Q12HR EILEEN Administration Ezetimibe 10 mg 11/28/24 09:00 11/30/24 09:03 Ezetimibe 10 Mg Tablet PO 10 mg DAILY EILEEN Administration Enoxaparin Sodium 40 mg 11/28/24 09:00 11/30/24 09:02 Enoxaparin 40 Mg/0.4 Ml Syringe SUB-Q 40 mg DAILY EILEEN Administration Gabapentin 900 mg 11/28/24 06:00 11/30/24 14:54 Gabapentin 300 Mg Capsule PO 900 mg Q8HR EILEEN Administration Sodium Chloride 1,000 mls @ 125 mls/hr 11/27/24 19:15 11/30/24 09:04 Normal Saline Iv IV CONT 125 mls/hr .Q8H EILEEN Administration Isosorbide Mononitrate 30 mg 11/28/24 09:00 11/30/24 09:02 Isosorbide Mononitrate 30 Mg Tab.Er.24h PO 30 mg DAILY EILEEN Administration Ketorolac Tromethamine 15 mg 11/27/24 20:00 11/30/24 14:53 Ketorolac 15 Mg/Ml Vial (*[facility]) IV PUSH 15 mg Q6HR EILEEN Administration Linaclotide 145 mcg 11/29/24 06:30 11/30/24 05:50 Linaclotide 145 Mcg Capsule PO 145 mcg DAILY@0630 EILEEN Administration Loratadine 10 mg 11/28/24 09:00 11/30/24 09:03 Loratadine 10 Mg Tablet PO 10 mg QAM EILEEN Administration Losartan Potassium 50 mg 11/28/24 09:00 11/30/24 09:03 Losartan Potassium 50 Mg Tablet PO 50 mg DAILY EILEEN Administration Metoprolol Tartrate 12.5 mg 11/28/24 09:00 11/30/24 09:03 Metoprolol Tartrate 12.5 Mg Tablet PO 12.5 mg DAILY EILEEN Administration Nortriptyline HCl 25 mg 11/27/24 22:20 11/29/24 21:23 Nortriptyline Hcl 25 Mg Capsule BY MOUTH 25 mg QHS EILEEN Administration Oxybutynin Chloride 10 mg 11/28/24 09:00 11/30/24 09:03 Oxybutynin Chloride Xl 5 Mg Tab.Er.24 PO 10 mg DAILY EILEEN Administration Pantoprazole Sodium 40 mg 11/28/24 09:00 11/30/24 09:02 Pantoprazole 40 Mg Tablet PO 40 mg Q12HR EILEEN Administration Polyethylene Glycol 17 gm 11/29/24 09:00 11/30/24 09:02 Polyethylene Glycol 3350 17 Gm Powd.Pack PO 17 gm QAM EILEEN Administration Senna/Docusate Sodium 1 tab 11/27/24 21:00 11/29/24 21:23 Senna/Docusate Sodium Tablet PO 1 tab HS EILEEN Administration Tamsulosin HCl 0.4 mg 11/28/24 09:00 11/30/24 09:03 Tamsulosin Hcl 0.4 Mg Capsule PO 0.4 mg QAM EILEEN Administration Trazodone HCl 100 mg 11/27/24 22:45 11/29/24 21:23 Trazodone Hcl 50 Mg Tablet PO 100 mg HS EILEEN Administration Radiology Results: ITS Impressions Abdomen/Pelvis CT 11/27/24 11:16 IMPRESSION: 1. Stercoral colitis. 2. Probable constipation. Quality VTE Prophylaxis VTE prophylaxis: mechanical ordered and pharmacologic ordered
[2024-11-30] MEDS: DOCUSATE SODIUM 100 MG CAPSULE PO (17:14)
[2024-11-30 20:15] VITALS: BP 159/83; PULSE 60; RESP 16; TEMP 36.1; O2SAT 98
[2024-11-30] MEDS: SENNA/DOCUSATE SODIUM TABLET 1 TAB PO (21:07)
[2024-11-30] MEDS: NORTRIPTYLINE HCL 25 MG CAPSULE BY MOUTH (21:08)
[2024-11-30 21:40] VITALS: PULSE 60; O2SAT 98
[2024-12-01] MEDS: SODIUM CHLORIDE 0.9% IV 1,000 ML 125 ML IV CONT ×2 (01:23→09:10)
[2024-12-01 03:05] VITALS: PULSE 62; O2SAT 97
[2024-12-01 05:05] VITALS: BP 144/70; PULSE 68; RESP 18; TEMP 36.3; O2SAT 98
[2024-12-01] MEDS: GABAPENTIN 300 MG CAPSULE 900 MG PO ×3 (06:10→20:59)
[2024-12-01] MEDS: ACETAMINOPHEN 500 MG TABLET 1000 MG PO ×3 (06:10→20:58)
[2024-12-01] MEDS: BACLOFEN 5 MG TABLET PO ×3 (06:11→20:58)
[2024-12-01] MEDS: LINACLOTIDE 145 MCG CAPSULE PO (06:11)
[2024-12-01 09:06] VITALS: PULSE 64
[2024-12-01] MEDS: cycloSPORINE 0.4 ML OPHTH SOLUTION 1 DROP EACH EYE ×2 (09:06→20:59)
[2024-12-01] MEDS: METOPROLOL TARTRATE 12.5 MG TABLET PO (09:06)
[2024-12-01] MEDS: ENOXAPARIN 40 MG/0.4 ML SYRINGE SUB-Q (09:06)
[2024-12-01] MEDS: ATORVASTATIN 40 MG TABLET PO (09:07)
[2024-12-01] MEDS: oxyBUTYnin CHLORIDE XL 5 MG TAB.ER.24 10 MG PO (09:07)
[2024-12-01] MEDS: ASPIRIN 81 MG ENTERIC TABLET PO (09:07)
[2024-12-01] MEDS: EZETIMIBE 10 MG TABLET PO (09:07)
[2024-12-01] MEDS: ISOSORBIDE MONONITRATE 30 MG TAB.ER.24H PO (09:07)
[2024-12-01] MEDS: LOSARTAN POTASSIUM 50 MG TABLET PO (09:07)
[2024-12-01] MEDS: LORATADINE 10 MG TABLET PO (09:07)
[2024-12-01] MEDS: PANTOPRAZOLE 40 MG TABLET PO ×3 (09:08→20:58)
[2024-12-01] MEDS: TAMSULOSIN HCL 0.4 MG CAPSULE PO (09:08)
[2024-12-01 09:54] LABS: Hematocrit 34.3 % (42.0-52.0); Hemoglobin 11.1 g/dL (14.0-18.0); Mean Corpuscular HGB Conc 32.4 g/dl (32-36); Mean Corpuscular Hemoglobin 30.3 pg (26-34); Mean Corpuscular Volume 93.7 fl (80-100); Platelet Count Result 182 k/mm3 (150-375); Red Blood Count 3.66 M/mm3 (4.6-6.20); White Blood Count 2.7 K/mm3 (4.5-10.0)
[2024-12-01 10:33] LABS: Anion Gap 6 mmol/L (4-12); Blood Urea Nitrogen 9 mg/dL (9-20); Calcium 9.7 mg/dL (8.4-10.2); Carbon Dioxide 26 mmol/L (22-30); Chloride 102 mmol/L (98-107); Estimated CRCL calculation 69 ml/min; Estimated Glomerular Filt Rate > 60; Glucose 144 mg/dL (65-110); Magnesium 1.8 mg/dL (1.6-2.3); Potassium 3.5 mmol/L (3.4-5.0); Sodium 134 mmol/L (137-145)
--- NOTE | 2024-12-01 12:05 | P.PNIM_ITS ---
Progress Note: A&P Assessment and Plan (1) Constipation: Code(s): K59.00 - Constipation, unspecified Status: Acute Assessment and Plan: * Lactulose enema x1 * Oral lactulose * Daily senna * IV fluids for hydration * Clear liquid diet * Avoid narcotics as it can make constipation worse * Had passage of bowel movements evening of admission * GI consulted * Continue Miralax 17g daily, Linzess 145 mcg q AM (2) Urinary retention: Code(s): R33.9 - Retention of urine, unspecified Status: Acute Assessment and Plan: * Likely 2/2 severe constipation * Atkins catheter for 48 hours * Start Flomax * Lidocaine lubrication * Urology consult * Manage constipation * TOV prior to discharge (3) Hypertension: Code(s): I10 - Essential (primary) hypertension Status: Chronic Assessment and Plan: * Continue Cozaar (4) CAD (coronary artery disease): Code(s): I25.10 - Atherosclerotic heart disease of [place] coronary artery without angina pectoris Status: Acute Assessment and Plan: * Continue Zetia, aspirin, Imdur, metoprolol, losartan (5) BPH (benign prostatic hyperplasia): Code(s): N40.0 - Benign prostatic hyperplasia without lower urinary tract symptoms Status: Acute Assessment and Plan: * Patient will need to be discharged home on Flomax Plan today patient again did have two small BM but still feels abdomen pain, passing gas, feels like he will have another BM soon, will increase miralax to double dose and colace and monitor, patient stats he still feels he has not emptied and has pain, will monitor. Subjective Date/time seen: 12/01/24 12:05 Interval history: 74 year old male past medical history of hypertension, TIA, throat cancer, BPH, diverticulitis, CAD and COPD the hospital with acute abdominal pain. Patient states that he has been unable to have a bowel movement for the last 5 days and now has urinary retention. 11/29/2024 Patient sitting comfortably at bedside at time of examination. Still endorsing constipation (has not had bowel movement since Monday afternoon). Continue bowel regimen per GI. Urology consulted regarding urinary retention - maintain bowel regimen and constipation, void trial prior to discharge. No other acute concerns at this time. today patient again did have two small BM but still feels abdomen pain, passing gas, feels like he will have another BM soon, will increase miralax to double dose and colace and monitor, patient stats he still feels he has not emptied and has pain, will monitor. Review of Systems Review of Systems: 12 systems were reviewed and are negativ e except for as per HPI. Exam Narrative: General: well appearing, appears stated age. HEENT: normocephalic, atraumatic. Mucous membranes moist. EOMI, PERRLA, bilateral sclera anicteric, no conjunctival injection. Neck supple without JVD, lymphadenopathy, or bruit. Respiratory: clear to auscultation bilaterally. No rales/rhonchi/wheezes. Cardiovascular: Regular rate and rhythm, normal S1-S2 upon auscultation. No murmurs, rubs, or clicks. PMI is nondisplaced, capillary refill less than 3 second. Abdomen: Distended firm, round, no pulsatile masses, nondistended and No rebound, no guarding. No CVA tenderness, no hepatosplenomegaly. Bowel sounds present to all four quadrants. No high pitch or tinkling sounds, resonant to percussion. Mildly tender Extremities: No cyanosis, clubbing, or edema present. Pulses are palpable 2/2. Active ROM to all four extremities. Neuro: Alert and orientated x 4. PERRLA. Cranial nerves 2-12 intact without focal deficit. Skin: Warm, dry, and intact, without rash, erythema, or lesion. Psych: pleasant, cooperative, normal speech, normal affect, no hallucinations, no dysarthia Objective Data Vital Signs Vital Signs: Vital Signs - 24 hr 11/30/24 15:22 11/30/24 15:25 11/30/24 20:00 Temperature 36.6 C Pulse Rate 62 Respiratory Rate 18 Blood Pressure 122/78 Pulse Oximetry 97 Oxygen Delivery Room Air Room Air 11/30/24 20:15 11/30/24 21:40 11/30/24 21:40 Temperature 36.1 C L Pulse Rate 60 60 Respiratory Rate 16 Blood Pressure 159/83 H Pulse Oximetry 98 98 98 Oxygen Delivery Room Air CPAP 12/01/24 03:05 12/01/24 05:05 12/01/24 09:06 Temperature 36.3 C L Pulse Rate 62 68 64 Respiratory Rate 18 Blood Pressure 144/70 H Pulse Oximetry 97 98 Oxygen Delivery CPAP Intake/Output Intake/Output: Intake & Output 11/28/24 11/29/24 11/30/24 12/01/24 23:59 23:59 23:59 23:59 Intake Total 4770 2862.1 5170 2312.9 Output Total 950 1850 3400 2125 Balance 3820 1012.1 1770 187.9 Meds/Results Medications: Active Medications Generic Name Dose Route Start Last Admin Trade Name Freq PRN Reason Stop Dose Admin Acetaminophen 1,000 mg 11/28/24 06:00 12/01/24 06:10 Acetaminophen 500 Mg Tablet PO 1,000 mg Q8HR EILEEN Administration Albuterol 2 puff 11/27/24 22:19 11/28/24 14:26 Albuterol Sulfate (*Sp) Aerosol 1 Puff INHALATION 2 puff Q4HRT PRN Administration Wheezing Aspirin 81 mg 11/28/24 09:00 12/01/24 09:07 Aspirin 81 Mg Enteric Tablet PO 81 mg DAILY EILEEN Administration Atorvastatin Calcium 40 mg 11/28/24 09:00 12/01/24 09:07 Atorvastatin 40 Mg Tablet PO 40 mg QAM EILEEN Administration Baclofen 5 mg 11/28/24 06:00 12/01/24 06:11 Baclofen 5 Mg Tablet PO 5 mg Q8HR EILEEN Administration Cyclosporine 1 drop 11/27/24 22:20 12/01/24 09:06 Cyclosporine 0.4 Ml Ophth Solution EACH EYE 1 drop Q12HR EILEEN Administration Ezetimibe 10 mg 11/28/24 09:00 12/01/24 09:07 Ezetimibe 10 Mg Tablet PO 10 mg DAILY EILEEN Administration Enoxaparin Sodium 40 mg 11/28/24 09:00 12/01/24 09:06 Enoxaparin 40 Mg/0.4 Ml Syringe SUB-Q 40 mg DAILY EILEEN Administration Gabapentin 900 mg 11/28/24 06:00 12/01/24 06:10 Gabapentin 300 Mg Capsule PO 900 mg Q8HR EILEEN Administration Isosorbide Mononitrate 30 mg 11/28/24 09:00 12/01/24 09:07 Isosorbide Mononitrate 30 Mg Tab.Er.24h PO 30 mg DAILY EILEEN Administration Linaclotide 145 mcg 11/29/24 06:30 12/01/24 06:11 Linaclotide 145 Mcg Capsule PO 145 mcg DAILY@0630 EILEEN Administration Loratadine 10 mg 11/28/24 09:00 12/01/24 09:07 Loratadine 10 Mg Tablet PO 10 mg QAM EILEEN Administration Losartan Potassium 50 mg 11/28/24 09:00 12/01/24 09:07 Losartan Potassium 50 Mg Tablet PO 50 mg DAILY EILEEN Administration Metoprolol Tartrate 12.5 mg 11/28/24 09:00 12/01/24 09:06 Metoprolol Tartrate 12.5 Mg Tablet PO 12.5 mg DAILY EILEEN Administration Nortriptyline HCl 25 mg 11/27/24 22:20 11/30/24 21:08 Nortriptyline Hcl 25 Mg Capsule BY MOUTH 25 mg QHS EILEEN Administration Oxybutynin Chloride 10 mg 11/28/24 09:00 12/01/24 09:07 Oxybutynin Chloride Xl 5 Mg Tab.Er.24 PO 10 mg DAILY EILEEN Administration Pantoprazole Sodium 40 mg 11/28/24 09:00 12/01/24 09:08 Pantoprazole 40 Mg Tablet PO 40 mg Q12HR EILEEN Administration Polyethylene Glycol 17 gm 11/29/24 09:00 12/01/24 09:04 Polyethylene Glycol 3350 17 Gm Powd.Pack PO 17 gm QAM [facility] Administration Senna/Docusate Sodium 1 tab 11/27/24 21:00 11/30/24 21:07 Senna/Docusate Sodium Tablet PO 1 tab HS [facility] Administration Tamsulosin HCl 0.4 mg 11/28/24 09:00 12/01/24 09:08 Tamsulosin Hcl 0.4 Mg Capsule PO 0.4 mg QAM EILEEN Administration Trazodone HCl 100 mg 11/27/24 22:45 11/30/24 21:07 Trazodone Hcl 50 Mg Tablet PO 100 mg HS EILEEN Administration Radiology Results: ITS Impressions Abdomen/Pelvis CT 11/27/24 11:16 IMPRESSION: 1. Stercoral colitis. 2. Probable constipation. Labs Labs: Laboratory Results - last 24 hr 12/01/24 12/01/24 09:24 09:25 WBC 2.7 L RBC 3.66 L Hgb 11.1 L Hct 34.3 L MCV 93.7 MCH 30.3 MCHC 32.4 RDW 13.5 Plt Count 182 MPV 10.2 Sodium 134 L Potassium 3.5 Chloride 102 Carbon Dioxide 26 Anion Gap 6 BUN 9 D Creatinine 0.90 Estim Creat Clear Calc 69 Estimated GFR > 60 Glucose 144 H Calcium 9.7 Magnesium 1.8 Quality VTE Prophylaxis VTE prophylaxis: mechanical ordered and pharmacologic ordered
[2024-12-01 14:00] VITALS: BP 125/74; PULSE 62; RESP 18; TEMP 36.5; O2SAT 100
[2024-12-01] MEDS: NORTRIPTYLINE HCL 25 MG CAPSULE BY MOUTH (20:47)
[2024-12-01] MEDS: SENNA/DOCUSATE SODIUM TABLET 1 TAB PO ×2 (20:47→20:57)
[2024-12-01 22:00] VITALS: BP 153/79; PULSE 60; RESP 18; TEMP 36.3; O2SAT 98
[2024-12-02] MEDS: LINACLOTIDE 145 MCG CAPSULE PO (05:34)
[2024-12-02] MEDS: GABAPENTIN 300 MG CAPSULE 900 MG PO ×2 (05:34→13:02)
[2024-12-02] MEDS: ACETAMINOPHEN 500 MG TABLET 1000 MG PO ×2 (05:34→13:02)
[2024-12-02] MEDS: BACLOFEN 5 MG TABLET PO ×2 (05:35→13:02)
[2024-12-02 06:00] VITALS: BP 131/59; PULSE 68; RESP 18; TEMP 36.2; O2SAT 97
[2024-12-02 06:43] LABS: Hematocrit 34.8 % (42.0-52.0); Hemoglobin 11.4 g/dL (14.0-18.0); Mean Corpuscular HGB Conc 32.8 g/dl (32-36); Mean Corpuscular Hemoglobin 30.4 pg (26-34); Mean Corpuscular Volume 92.8 fl (80-100); Platelet Count Result 213 k/mm3 (150-375); Red Blood Count 3.75 M/mm3 (4.6-6.20); White Blood Count 3.1 K/mm3 (4.5-10.0)
[2024-12-02] MEDS: LOSARTAN POTASSIUM 50 MG TABLET PO (08:29)
[2024-12-02] MEDS: oxyBUTYnin CHLORIDE XL 5 MG TAB.ER.24 10 MG PO (08:29)
[2024-12-02] MEDS: ATORVASTATIN 40 MG TABLET PO (08:29)
[2024-12-02] MEDS: TAMSULOSIN HCL 0.4 MG CAPSULE PO (08:29)
[2024-12-02] MEDS: ISOSORBIDE MONONITRATE 30 MG TAB.ER.24H PO (08:29)
[2024-12-02] MEDS: EZETIMIBE 10 MG TABLET PO (08:29)
[2024-12-02] MEDS: LORATADINE 10 MG TABLET PO (08:30)
[2024-12-02] MEDS: ASPIRIN 81 MG ENTERIC TABLET PO (08:30)
[2024-12-02] MEDS: ENOXAPARIN 40 MG/0.4 ML SYRINGE SUB-Q (08:31)
[2024-12-02] MEDS: cycloSPORINE 0.4 ML OPHTH SOLUTION 1 DROP EACH EYE (08:31)
[2024-12-02 08:33] VITALS: PULSE 78
[2024-12-02] MEDS: METOPROLOL TARTRATE 12.5 MG TABLET PO (08:33)
--- NOTE | 2024-12-02 12:49 | PCDIET ---
Pt screened for clear liquids x 5 days. Diet to advance to full liquids today. Will monitor intake and need for further nutrition assessment.
[2024-12-02 14:00] VITALS: BP 135/78; PULSE 58; RESP 16; TEMP 36.1; O2SAT 100
[2024-12-02 16:00] LABS: Anion Gap 6 mmol/L (4-12); Blood Urea Nitrogen 6 mg/dL (9-20); Calcium 10.3 mg/dL (8.4-10.2); Carbon Dioxide 28 mmol/L (22-30); Chloride 103 mmol/L (98-107); Estimated CRCL calculation 69 ml/min; Estimated Glomerular Filt Rate > 60; Glucose 146 mg/dL (65-110); Magnesium 1.8 mg/dL (1.6-2.3); Potassium 3.5 mmol/L (3.4-5.0); Sodium 137 mmol/L (137-145)
--- NOTE | 2024-12-02 16:08 | P.DS_ITS ---
DS: Admitting Diagnosis Discharge Date 12/02/2024 Admitting Diagnosis Constipation, urinary retention DS: Discharge Diagnosis Discharge Diagnosis (1) Constipation: Code(s): K59.00 - Constipation, unspecified Status: Acute Assessment and Plan: * Lactulose enema x1 * Oral lactulose * Daily senna * IV fluids for hydration * Clear liquid diet * Avoid narcotics as it can make constipation worse * Had passage of bowel movements evening of admission * GI consulted * Continue Miralax 17g daily, Linzess 145 mcg q AM (2) Urinary retention: Code(s): R33.9 - Retention of urine, unspecified Status: Acute Assessment and Plan: * Likely 2/2 severe constipation * Atkins catheter for 48 hours * Start Flomax * Lidocaine lubrication * Urology consult * Manage constipation * TOV prior to discharge (3) Hypertension: Code(s): I10 - Essential (primary) hypertension Status: Chronic Assessment and Plan: * Continue Cozaar (4) CAD (coronary artery disease): Code(s): I25.10 - Atherosclerotic heart disease of [place] coronary artery without angina pectoris Status: Acute Assessment and Plan: * Continue Zetia, aspirin, Imdur, metoprolol, losartan (5) BPH (benign prostatic hyperplasia): Code(s): N40.0 - Benign prostatic hyperplasia without lower urinary tract symptoms Status: Acute Assessment and Plan: * Patient will need to be discharged home on Flomax Plan today patient again did have two small BM but still feels abdomen pain, passing gas, feels like he will have another BM soon, will increase miralax to double dose and colace and monitor, patient stats he still feels he has not emptied and has pain, will monitor. DS: Summary Hospital Course Reason for hospitalization: Constipation, urinary retention Hospital Course: Per HPI: 74 year old male past medical history of hypertension, TIA, throat cancer, BPH, diverticulitis, CAD and COPD the hospital with acute abdominal pain. Patient states that he has been unable to have a bowel movement for the last 5 days and now has urinary retention. Patient states that he is now on able to void and this may came to the emergency room. He states that he was taking Senokot and MiraLax without results. Patient denies fevers chills nausea or vomiting. Patient's lab work shows leukopenia at 3.4, hemoglobin of 12.2, sodium of 136, BUN of 21, glucose of 135, calcium 10.7, UA is cloudy with trace leukocyte esterase, 50-100 rbc's, CT abdomen pelvis show Stercoral colitis in constipation. Patient had several tap water enemas in emergency room with no results. He was started on Flagyl and Rocephin. Hospital course: GI consulted regarding chronic idiopathic constipation. Plan for high-fiber diet with fixed daily doses of laxatives. MiraLax 17g tbid and add Linzess 145 ?g 30 minutes before breakfast. Urology consulted -have made adjustments to catheter, recommend managing constipation and bowel regimen, along with Atkins. Once bowel regimen has been established constipation has been resolved, urology recommends voiding trial prior to discharge. Throughout hospitalization, patient able to have multiple bowel movements. Awaiting trial was attempted on 12/02 with post residual bladder scan being obtained. No complications arose from this. Patient otherwise hemodynamically stable for discharge and will be i nstructed to continue bowel regimen if experiencing constipation and not to let constipation along with the 3 days. Patient amenable to discharge at this time. Status at Discharge Functional status at discharge: uses cane/walker Overall status at discharge: patient is back to baseline Time Spent with Patient Time attestation: Total time spent providing and/or coordinating discharge services: 35 Exam Narrative: General: well appearing, appears stated age. HEENT: normocephalic, atraumatic. Mucous membranes moist. EOMI, PERRLA, bilateral sclera anicteric, no conjunctival injection. Neck supple without JVD, lymphadenopathy, or bruit. Respiratory: clear to auscultation bilaterally. No rales/rhonchi/wheezes. Cardiovascular: Regular rate and rhythm, normal S1-S2 upon auscultation. No murmurs, rubs, or clicks. PMI is nondisplaced, capillary refill less than 3 second. Abdomen: Nondistended, nontender. No rebound, no guarding. No CVA tenderness, no hepatosplenomegaly. Bowel sounds present to all four quadrants. No high pitch or tinkling sounds, resonant to percussion. Extremities: No cyanosis, clubbing, or edema present. Pulses are palpable 2/2. Active ROM to all four extremities. Neuro: Alert and orientated x 4. PERRLA. Cranial nerves 2-12 intact without focal deficit. Skin: Warm, dry, and intact, without rash, erythema, or lesion. Psych: pleasant, cooperative, normal speech, normal affect, no hallucinations, no dysarthia DS: Data Data Completed and Pending Labs on day of discharge: Labs from last 24 hours 12/02/24 12/02/24 08:39 06:28 WBC 3.1 L RBC 3.75 L Hgb 11.4 L Hct 34.8 L MCV 92.8 MCH 30.4 MCHC 32.8 RDW 13.6 Plt Count 213 MPV 10.0 Sodium 137 Potassium 3.5 Chloride 103 Carbon Dioxide 28 Anion Gap 6 BUN 6 L Creatinine 0.91 Estim Creat Clear Calc 69 Estimated GFR > 60 Glucose 146 H Calcium 10.3 H Magnesium 1.8 Preliminary micro results at discharge 11/27/24 19:06 Blood Culture - Preliminary Blood 11/27/24 19:13 Blood Culture - Preliminary Blood Discharge Plan Discharge Attending physician on discharge: Brian Gage Oca Consulting providers: Ovidio Lea; Reinaldo Martin Discharging Clinician: Ovidio Lea Anticipated Discharge Date/Time: 12/02/24 16:04 Patient Disposition: Home with Home Health Service Activity: as tolerated Diet: regular Discharge Instructions: Per Care Coordination: Patient to have [facility] for RN/PT/OT eval and treat [phone]. They will contact patient to schedule first visit. Discharge disposition: Home with home health services Take medications as prescribed. You will be given a prescription for tamsulosin (Flomax) for urine large prostate and MiraLax to be taken twice daily if experiencing constipation. Monitor blood pressures Take caution while standing, rising, or moving Change positions slowly taking a break between each position change If you standing feel dizzy sit back down and take a break Encouraged to continue with yearly vaccinations Return to the emergency department if you develop sudden shortness of breath, chest pain, nausea, vomiting, upset stomach or intractable diarrhea Return to the emergency department if you develop fever greater than 101.5 Follow-up with the primary care physician within 1-2 weeks Thank you for choosing [facility] for your healthcare needs Patient Instructions: Antibiotic Form Patient Language: Hungarian Stand Alone Forms: General Discharge Information Follow-up/Referrals: Zackary Grider DO [Primary Care Provider, Internal Medicine] Discharge Medications: New tamsulosin 0.4 mg Capsule 0.4 mg PO QAM Qty: 30 0RF polyethylene glycol 3350 [Miralax] 17 gram/dose powder 17 g PO BID Qty: 119 0RF Continued Fiber Supplement 2 cap PO .evening ezetimibe 10 mg tablet 10 mg PO DAILY losartan 50 mg tablet 50 mg PO DAILY isosorbide mononitrate 30 mg tablet extended release 24 hr 30 mg PO DAILY Restasis MultiDose 0.05 % drops 1 drp EACH EYE Q12H fenofibrate 54 mg tablet 52 mg PO QAM Qty: 90 0RF acetaminophen [Tylenol 8 Hour] 650 mg tablet extended release 1,000 mg PO TID aspirin [Ginny Low Dose Aspirin] 81 mg Tablet,Delayed Release (Dr/Ec) 81 mg PO DAILY atorvastatin 40 mg tablet 40 mg PO QAM cetirizine 10 mg Tablet 5 mg PO DAILY Metamucil (with sugar) 3.4 gram Powder In Packet 1 tsp PO QAM PRN (Reason: constipation) trazodone 100 mg tablet 100 mg PO HS Qty: 90 3RF omeprazole 40 mg capsule,delayed release(DR/EC) See Rx Instructions .ROUTE .COMPLEX Qty: 90 2RF Dose Instruction: TAKE 1 CAPSULE BY MOUTH EVERY DAY Rx Instructions: TAKE 1 CAPSULE BY MOUTH EVERY DAY oxybutynin chloride 10 mg tablet extended release 24hr 10 mg PO DAILY Qty: 90 2RF gabapentin 300 mg capsule 900 mg PO TID Qty: 810 3RF baclofen 5 mg tablet 5 mg PO TID Qty: 270 0RF nortriptyline 25 mg capsule See Rx Instructions .ROUTE .COMPLEX Qty: 90 2RF Dose Instruction: TAKE 2 CAPSULES BY MOUTH EVERY DAY AT NIGHT Rx Instructions: TAKE 1 CAPSULES BY MOUTH EVERY DAY AT NIGHT fluticasone propion-salmeterol [Wixela Inhub] 250-50 mcg/dose blister with device 1 inh inhalation BID Qty: 60 11RF metoprolol tartrate 25 mg tablet 12.5 mg PO DAILY Qty: 45 1RF Discontinued Men's Multivitamin 400-20-300 mcg Tablet 1 tablet PO DAILY albuterol sulfate [ProAir HFA] 90 mcg/actuation Hfa Aerosol Inhaler 2 puff INHALATION PRN PRN (Reason: Wheezing) Date of admission: 11/28/24 16:40 Primary Care Provider: Zackary Grider Admitting Provider: Jane Carbone Attending physician on admission: Jane Carbone Condition: Stable Quality VTE Prophylaxis VTE prophylaxis: mechanical ordered and pharmacologic ordered
== END 2024-12-02 18:15 | disposition home health service (06) | DRG 392 ==
LOC: ANHED 18:31 → ANH3MEDSUR 18:51
PROVIDERS: Nurse Practitioner Gerontology; Admitting Provider Family Medicine; Emergency Provider Emergency Medicine; PCP Internal Medicine; Visit Provider Physician Assistant
DX: K59.04 Chronic idiopathic constipation (principal); K59.03 Drug induced constipation; T42.8X5A Adverse effect of antiparkinsonism drugs and other central muscle-tone depressants, initial encounter; T44.3X5A Adverse effect of other parasympatholytics [anticholinergics and antimuscarinics] and spasmolytics, initial encounter; T43.015A Adverse effect of tricyclic antidepressants, initial encounter; K52.89 Other specified noninfective gastroenteritis and colitis; R33.8 Other retention of urine; K57.90 Diverticulosis of intestine, part unspecified, without perforation or abscess without bleeding; N40.1 Benign prostatic hyperplasia with lower urinary tract symptoms; I10 Essential (primary) hypertension; I25.10 Atherosclerotic heart disease of native coronary artery without angina pectoris; J44.9 Chronic obstructive pulmonary disease, unspecified; H40.9 Unspecified glaucoma; M19.90 Unspecified osteoarthritis, unspecified site; G47.33 Obstructive sleep apnea (adult) (pediatric); D64.9 Anemia, unspecified; F41.9 Anxiety disorder, unspecified; K21.9 Gastro-esophageal reflux disease without esophagitis; E78.5 Hyperlipidemia, unspecified; Z86.73 Personal history of transient ischemic attack (TIA), and cerebral infarction without residual deficits; Z85.89 Personal history of malignant neoplasm of other organs and systems; Z87.891 Personal history of nicotine dependence
CPT/HCPCS: 36415; 74176; 80048; 80053; 81001; 83690; 83735; 85025; 85027; 87040; 96361; 96365; 96366; 96367; 96372; 96375; 96376; 97110; 97116; 97162; 97166; 97530; 97535; 99285; A9270; G0378; J0696; J1171; J1650; J1836; J1885; J7030

== ENCOUNTER 2025-01-02 11:42 | Outpatient (CLI) | payer MEDICARE, SELFPAY ==
--- NOTE | ~2025-01-02 | XR_ITS ---
Examination: XR abdomen/kub 1V Clinical History: R10.9 - Unspecified abdominal pain Comparison: CT abdomen and pelvis 11/27/2024 Technique: 2 views supine AP abdomen Findings: Spinal stimulator. Scattered colonic stool. Small bowel loops poorly seen. Tiny calcification right kidney, thought to be vascular on CT. Pelvic phleboliths. No acute bony abnormality.. IMPRESSION: 1. No acute abnormality. Reviewed, dictated and finalized at location R. BODY REPAIR ESTIMATOR IMPRESSION: 1. No acute abnormality.
--- OUTSIDE RECORDS SUMMARY | 2025-01-02 12:45 | XMS_ITS | Encounter Summary ---
Author Organization [facility] Healthcare Address [address] [place] [address] Care Team Providers Care Assistant Loan Processor Name Role Phone Charanjit Yanes MD Primary Care Provider [phone] Zackary Grider DO Primary Care Provider [phone] Reason for Visit * Reason Onset Date Comments question 02/01/2022 Encounter Details Date Type Department Care Team (Late st Contact Info) Description 02/01/2022 Telephone [facility] [place] [facility] [address] [facility] [address] [place] [id number] Ilia Barrett MD PhD [address] [facility] [address] [place] [address] question Social History Tobacco Use Types Packs/Day [...] often do you attend chur ch or quaker services? Never 06/24/2020 Do you belong to any clubs o r organizations such as protestant groups, unions, fraternal or athletic groups, or [...] place to sleep or slept in a retirement (including now)? No 06/24/2020 Sex and Gender Information Value Date Recorded Sex Assigned at Not on file Legal Sex Male 3:05 AM SECURITY SHIFT MANAGER Gender Identity Male 02/03/2021 8:53 AM SECURITY SHIFT MANAGER Sexual Orientation Straight 08/05/2018 2: 16 [...] on filedocumented in this encounter Care Teams Assistant Loan Processor Relationship Specialty Start Date End Date Charanjit Yanes MD [address] [place] [address] PCP - General Internal Medicine 02/17/20 10/12/23 Zackary Grider DO [address] [place] [address] PCP - General Internal Medicine 10/13/23 documented as of this encounter
--- OUTSIDE RECORDS SUMMARY | 2025-01-02 12:45 | XMS_ITS | Clinical Summary ---
Author Organization [facility] Medical Office [place] Address [address] [address] Care Team Providers Care Water And Gas Helper Name Role Phone Unavailable Primary Care Provider Unavailabl e Allergies Active Allergy Reactions Criticality Noted Date Comments Maninder Inhibitors Angioedema High 01/10/2019 Clotrimazole Rash Medium 02/26/2013 Iodinated Contrast Media Angioedema High 01/17/2017 Omnipaque, IV contrast 12/20/16 at [facility] acute angioedema during CT scan Iohexol [...] mg by mouth 2 times daily. Active -nrxv -Lmfolate-algal 27 mg iron-1.13 mg-581.92 mg Capsule [...] VACCINE (60+ or ) (1 - Risk 50-74 years 1-dose series) 2000 DIABETES HBA1C Q 6 MONTHS 06/19/2017 12/20/2016 INFLUENZA VACCINE (#1) 2024 , 12/03/2018, 10/18/2017, Additional history exists DTAP/TDAP/TD VACCINES (3 - T d or Tdap) 09/09/2027 09/08/2017, 09/07/2017 ZOSTER VACCINE Completed 11/23/2017, 08/21, 09/11/2017, Additional history exists PNEUMOCOCCAL VACCINE 50+ YEARS Completed 1 03/20/2018, 09/08/2017, 09/07/2017, Additional history exists Medical Devices Implanted Type Area Express Clerk Device Identifier Shelf Expiration Date Model / Serial / Lot Cage Cage Throat Description:r/t radiation; t hroat surgery with titanium to neck Hip Hip Description:and SI joint has been fused on the left Lead Vectris 1x8 60cm Trial [facility] [id number] - [id number] Implanted:Qty: 1 on 09/28/2023 by Ilia Barrett MD at [facility] Lead N/A: Spine Lumbar [employer]- NEUROLOGIC TECH 06/29/2027 [id number] / / [id number] Lead Vectris 1x8 60cm Trial [facility] [id number] - [id number] Implanted:Qty: 1 on 09/28/2023 by Ilia Barrett MD at [facility] Lead N/A: Spine Lumbar [employer]- NEUROLOGIC TECH 08/14/2027 [id number] / / [id number] Description:no charge item p art of kit/bundle per rep Lead Surescan Vectris Mri [id number] - [id number] Implanted:Qty: 1 on 10/20/2023 by Ilia Barrett MD at [facility] Lead N/A: Back [employer]- NEUROLOGIC TECH 03/21/2027 [id number] / / [id number] Lead Surescan Vectris Mri [id number] - [id number] Implanted:Qty: 1 on 10/20/2023 by Ilia Barrett MD at [facility] Lead N/A: Back [employer]- NEUROLOGIC TECH 04/20/2027 [id number] / / [id number] [place] [employer]ex Bi-Wing [id number] - [id number] Implanted:Qty: 1 on 10/20/2023 by Ilia Barrett MD at [facility] Other N/A: Back [employer]- NEUROLOGIC TECH 09/04/2027 [id number] / / [id number] Cervical Fusion Kit Intellis Trial Lead 1 Implanted:Qty: 1 on 09/28/2023 by Ilia Barrett MD at [facility] N/A: Spine Lumbar [employer] INTELTRIAL 1 / / Implantable Pulse Generator Implanted:Qty: 1 on 10/20/2023 by Ilia Barrett MD at [facility] N/A: Back [employer] 08/17/2024 [id number] / / [id number] Insurance RX [employer] RX Member Subscriber Plan / Payer (Ef fective 2023-Present) Name:Daryl Hay Relation to Subscriber:Self Name:Daryl Hay Payer ID:Not on file Group ID:[id number] Type:RX Medicare Part D Address: [address] [employer] [place] [employer] (INTERNAL) [employer] Internal Plans Advance Directives For more information, please contact: [phone] * Full Code (Latest Code Status on File) Date Activated Date Inactivated Comments 10/20/2023 1:49 PM 10/20/2023 8:08 PM * Full Code Date Activated Date Inactivated Comments 10/20/2023 11:05 AM 10/20/2023 1:49 PM
--- OUTSIDE RECORDS SUMMARY | 2025-01-02 12:45 | XMS_ITS | Encounter Summary ---
Author Organization [facility] Healthcare Address [address] [place] [address] Care Team Providers Care Armorer Technician Name Role Phone Charanjit Yanes MD Primary Care Provider [phone] Zackary Grider DO Primary Care Provider [phone] Encounter Details Date Type Department Care Team (Late st Contact Info) Description 02/28/2020 Telephone [facility] Radiology [address] [place] [address] Terrence Hernandez MD PhD [address] [place], [place] [id number] Social History Tobacco Use Types Packs/Day Years Used Date Smoking Tobacco: Former Cigarettes 2 25 Smokeless Tobacco: Never Alcohol Use Standard Drinks/Week Comments Yes 15 (1 standard drink = 0.6 oz pu re alcohol) Sex and Gender Information Value Date Recorded Sex Assigned at Not on file Legal Sex Male 3:05 AM PRINT LINE FEEDER Gender Identity Male 02/03/2021 8:53 AM PRINT LINE FEEDER Sexual Orientation Straight 08/05/2018 2: 16 PM CDT Occupation Industry Job Start Date Job End Date retired Not on file Not on file Not on file documented as of this encounter Plan of Treatment Not on file documented as of this encounter Visit Diagnoses Not on filedocumented in this encounter Care Teams Armorer Technician Relationship Specialty Start Date End Date Charanjit Yanes MD [address] [address] PCP - General Internal Medicine 02/17/20 10/12/23 Zackary Grider DO [address] [address] PCP - General Internal Medicine 10/13/23 documented as of this encounter
--- OUTSIDE RECORDS SUMMARY | 2025-01-02 12:45 | XMS_ITS | Encounter Summary ---
Author Organization [facility] Healthcare Address [address] [place] [address] Care Team Providers Care Plant Security Guard Name Role Phone Charanjit Yanes MD Primary Care Provider [phone] Zackary Grider DO Primary Care Provider [phone] Encounter Details Date Type Department Care Team (Late st Contact Info) Description 06/22/2022 Telephone [facility] [place] [facility] [address] [facility] [address] [place] [address] Ilia Barrett MD PhD [address] [place] [address] Social History Tobacco Use Types Packs/Day Years [...] often do you attend chur ch or anabaptism services? Never 06/24/2020 Do you belong to [...] place to sleep or slept in a chcf (including now)? No 06/24/2020 Sex and Gender Information Value Date Recorded Sex Assigned at Not on file Legal Sex Male 3:05 AM NEWSPAPER REPORTER Gender Identity Male 02/03/2021 8:53 AM NEWSPAPER REPORTER Sexual Orientation Straight 08/05/2018 2: 16 PM [...] on filedocumented in this encounter Care Teams Plant Security Guard Relationship Specialty Start Date End Date Charanjit Yanes MD [address] [facility] [address] [place] [address] PCP - General Internal Medicine 02/17/20 10/12/23 Zackary Grider DO [address] [place] [address] [place] [address] PCP - General Internal Medicine 10/13/23 documented as of this encounter
--- OUTSIDE RECORDS SUMMARY | 2025-01-02 12:45 | XMS_ITS | Encounter Summary ---
Author Organization [facility] Health Address [address] [place] [address] Care Team Providers Care Custom Furrier Name Role Phone Hitesh Esparza MD Primary Care Provider [phone] Anne Lawson RN Unavailable [phone] Encounter Details Date Type Department Care Team (Late st Contact Info) Description 04/29/2013 Therapy Visit EXTERNAL NON-[facility] [place] [address] [place] [address] Social History Tobacco Use Types Packs/Day Years Used Date Smoking Tobacco: Former Smokeless Tobacco: Never Alcohol Use Standard Drinks/Week Comments Yes 0 (1 standard drink = 0.6 oz pur e alcohol) 2 drinks per day Sex and Gender Information Value Date Recorded Sex Assigned at Not on file Legal Sex Male 3:18 PM ENVIRONMENTAL SAFETY SPECIALIST Gender Identity Not on file Sexual Orientation Not on file 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
--- OUTSIDE RECORDS SUMMARY | 2025-01-02 12:45 | XMS_ITS | Clinical Summary ---
Author Organization [facility] Address [address] [facility] [place] [address] Care Team Providers Care Shuttle Operator Name Role Phone Hitesh Esparza MD Primary Care Provider [phone] Anne Lawson RN Unavailable [phone] Source Comments [facility],non-owned Affiliates and Associated Physician Practices is amultiple site organization consisting of ambulatory clinics and hospital sitesin [place], [place], [place] and [place]. This disclosure is being madepursuant to the Care Everywhere program and may not contain all information available regarding this patient. 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 03/21/2018 7050-90 / / [id number] Si- Bone Fusion Geo 7.0mm X 50mm Implanted:Qty: 1 on 07/12/2013 by Shlomo Donato MD at [facility] 03/22/2018 7050-90 / / [id number] Si-Bone Ifuse Implant System 7.0mm X 50mm Implanted:Qty: 1 on 07/12/2013 by Shlomo Donato MD at [facility] 03/21/2018 7050-90 / / [id number] Procedures Procedure Name Priority Date/Time Associated Diagnosis Comments BASIC METABOLIC PANEL (CALCIUM TOTAL) Routine 12/24/2016 3:52 AM CDT from Last 3 Months or Most Recently Relevant to Health Maintenance Results * BASIC METABOLIC PANEL (CALCIUM TOTAL) (12/24/2016 3:52 AM CDT) BUN 19 7 - 26 mg/dL [facility] Creatinine 0.9 0.6 - 1.2 mg/dL [facility] Sodium 139 136 - 145 mmol/L [facility] Potassium 4.1 3.5 - 4.5 mmol/L [facility] Chloride 103 98 - 107 mmol/L [facility] CO2 27 22 - 29 mmol/L [facility] Glucose 102 70 - 115 mg/dL [facility] Calcium 9.7 8.4 - 10.2 mg/dL [facility] Anion Gap 13 8 - 18 [facility] BUN/Creatinine Ratio 21 7 - 23 [facility] Osmolality Calculated 290 270 - 300 mOsm/kg [facility] eGFR >60 >60 mL/min/1.7 3 m2 [facility] Blood specimen (specimen) BLOOD SPECIMEN / Unknown 12/24/2016 3:52 AM CDT 12/24/2016 4:02 AM CDT us Peg Maher MD LAB - CHEMISTRY ORDERABLES Fin al Result [facility] [address] [phone] from Last 3 Months or Most Recently Relevant to Health Maintenance Insurance MEDICARE [facility] MEDICARE Advance Directives * Full Code (Latest Code Status on File) Date Activated Date Inactivated Comments 07/16/2013 8:08 AM 07/17/2013 10:47 AM * Full Code Date Activated Date Inactivated Comments 07/12/2013 12:13 PM 07/16/2013 8:08 AM Care Teams Shuttle Operator Relationship Specialty Start Date End Date Hitesh Esparza MD [address] [place] [address] PCP - General Family Medicine 02/26/13 Anne Lawson RN Systems Tester 07/16/13
--- OUTSIDE RECORDS SUMMARY | 2025-01-02 12:45 | XMS_ITS | Clinical Summary ---
Author Organization [facility] [address] Address [address] [place] [address] Care Team Providers Care Recycling Operator Name Role Phone Zackary Grider DO Primary Care Provider [phone] Allergies Active Allergy Reactions Criticality Noted Date Comments Maninder Inhibitors Angioedema High 05/29/2020 Clotrimazole Rash Medium 02/26/2013 Iodinated Contrast Media Angioedema High 01/17/2017 Omnipaque, IV contrast 12/20/16 at [facility] acute angioedema during CT scan Lisinopril [...] 01/14/20 15 Active omeprazole (PriLOSEC) 40 mg capsuleIndicatio ns:gerd [...] FIBER, DEXTRIN, ORAL Take by mouth Active -ybfj- Lmfolate-algal 27 mg iron-1.13 mg-581.92 mg capsule [...] 02/07/20 23 Active nortriptyline (PAMELOR) 25 mg capsuleIndicatio ns:Lumbar radiculopathy Take 1 capsule (25 mg total) by mouth nightly 90 capsule 3 04/03/19 24 Active Additional Information Patient taking differently: 50 mgoral Nightly, Reported on 10/17/2024 isosorbide mononitrate ER (IMDUR) 60 mg 24 hr tablet Take 0.5 tablets (30 mg total) by mouth daily 45 tablet 3 06/01/19 25 Active fenofibrate (TRICOR) 54 mg tablet TAKE 1 TABLET BY MOUTH DAILY 90 tablet 2 08/14/19 25 Active metoprolol tartrate (LOPRESSOR) 25 mg immediate release tablet Take 0.5 tablets (12.5 mg total) by mouth 2 (two) times a day Active losartan (COZAAR) 25 mg tabletIndication s:Labile hypertension Take 1 tablet (25 mg total) by mouth daily 90 tablet 3 10/18/19 25 2025 Active atorvastatin (LIPITOR) 80 mg tablet Take 1 tablet (80 mg total) by mouth daily 90 tablet 2 11/01/19 25 Active ezetimibe (ZETIA) 10 mg tablet TAKE 1 TABLET BY MOUTH EVERY DAY 90 tablet 2 12/14/19 25 Active Linzess 145 mcg capsule Take by mouth daily 12/11/19 25 Active polyethylene glycol (MIRALAX) 17 gram/dose bulk powder TAKE 17G BY MOUTH TWICE A DAY 12/03/19 25 Active ezetimibe (ZETIA) 10 mg tablet TAKE 1 TABLET BY MOUTH EVERY DAY 90 tablet 1 06/18/19 25 2024 Discontinued Active Problems Problem Noted Date Diagnosed Date [...] (04/27/2020): Added automatically from request for surgery [id number] Pain of left lower extremity 03/27/2020 Left hip pain 03/27/2020 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 No diagnosis on [place] I 03/24/2020 Other chronic pain 03/24/2020 Anxiety disorder 03/24/2020 Functional hemiparesis 01/27/2020 Assessment & Plan (02/27/2023 7:26 AM STRIPPER APPRENTICE): There was no evidence of a primary [...] Anemia 05/25/2017 Coronary artery disease invo lving chilkat coronary artery of chilkat heart without angina pectoris 01/17/2017 Allergic to IV contrast 01/17/2017 Edema of larynx 10/26/2016 Preoperative state 06/21/2016 Overview (07/15/2016): Preoperative cardiovascular examination History of malignant neoplasm of larynx 03/25/19 16 Dysphonia 03/25/2015 Mixed diabetic hyperlipidemi a associated with type 2 diabetes mellitus ([facility]/HCC) 03/23/2015 Overview (05/27/2016): DM type 2 with [...] Encounters Date Type Department Care Team Description 12/18/2024 1:20 PM CDT Office Visit [facility] Medicine Otolaryngology Head-Neck Division [facility] Floor [address] [place] [address] Rubina Gale PA History of malignant neoplasm of larynx (Primary Dx); Bilateral impacted cerumen 10/17/2024 11:00 AM CDT Office Visit [facility] Medical [facility] Cardiology [address] [place] [address] Nyla Pearson NP Coronary artery disease involving chilkat coronary artery of chilkat heart without angina pectoris; Mixed diabetic hyperlipidemia associated with type 2 diabetes mellitus (CMS/HCC) (HCC); Labile hypertension; ARINA on CPAP 10/17/2024 Telephone [facility] Cardiology [address] [place] [address] Elmira Matos MA Old Cath Report Requested [...] History Date Comments Asthma Asthma; Comments : [facility] 01/13/2015 - Malignant neoplasm of larynx Can cer, throat; Comments: [facility] 01/13/2015 - Sleep apnea Sleep apnea; Com ments: [facility] 01/13/2015 - GERD (gastroesophageal reflux disease) [...] often do you attend chur ch or yazidism services? Never 06/24/2020 Do you belong to any clubs o r organizations such as methodist groups, unions, fraternal or athletic groups, or [...] place to sleep or slept in a long term (including now)? No 06/24/2020 Sex and Gender Information Value Date Recorded Sex Assigned at Not on file Legal Sex Male 3:05 AM STRIPPER APPRENTICE Gender Identity Male 02/03/2021 8:53 AM STRIPPER APPRENTICE Sexual Orientation Straight 08/05/2018 2: 16 PM [...] 18 06/28/2023 11:42 AM CDT Oxygen Saturation 97% 10/17/2024 10:59 AM CDT Inhaled Oxygen Concentration - - Weight 94.8 kg (209 lb) 12/18/2024 1:08 PM CDT Height 182.9 cm (6') 10/17/2024 10:59 AM CDT Body Mass Index 28.35 10/17/2024 10:59 AM CDT Plan of Treatment [...] history exists Influenza Vaccine (#1) 2024 , 12/03/2022, 11/21/2019, Additional history exists Lipid Panel 10/17/2025 10/17/2024, [...] as needed Medical Devices Implanted Type Area Homeworker Device Identifier Shelf Expiration Date Model / Serial / Lot Titanium Si Joint Sacrum Cage & Screws In Ncek Neck [employer] [id number] 58mm Limit 4 Hole Hip G Hemisphere Offset Shell Acetabular - [id number] Implanted:Qty: 1 on 06/23/2020 by Zach Sena MD at [facility] Left: Hip [employer] [id number] 07/27/2029 [id number] / / [id number] [employer] [id number] 40mm Lumen Hip G Liner Acetabular Longevity Sterile Latex Free - [id number] Implanted:Qty: 1 on 06/23/2020 by Zach Sena MD at [facility] Left: Hip [employer] [id number] 11/20/[id number] / / [id number] [employer] [id number] Taperloc 154mm Type 1 Press Fit Reduce Hip 133d 17 High Offset - [id number] Implanted:Qty: 1 on 06/23/2020 by Zach Sena MD at [facility] Left: Hip [employer] [id number] 04/24/2029 [id number] / / [id number] [employer] 650-1067 G7 Type 1 Hip +3mm Offset Taper Sleeve Centering Titanium Biolox - [id number] Implanted:Qty: 1 on 06/23/2020 by Zach Sena MD at [facility] Left: Hip [employer] 07/04/2029 [id number] / / [id number] [employer] 650-1058 G7 40mm Hip Head Femoral Biolox Delta Biolox Option - [id number] Implanted:Qty: 1 on 06/23/2020 by Zach Sena MD at [facility] Left: Hip [employer] 12/10/2029 650-1058 / / [id number] Procedures Procedure Name Priority Date/Time Associated Diagnosis Comments POCT LIPID PANEL Routine 10/17/2024 10:5 2 AM CDT Coronary artery disease involving chilkat coronary artery of chilkat heart without angina pectoris BASIC METABOLIC PANEL [...] - 06/16/2020 5:07 AM CDT Performed at: [facility] [id number] Medical Assistant Instructor: Kurt Ly PhD, Phone: [phone] Tucker Rai MD LAB BLOOD ORDERABLES Fin al Result [facility] - 01 from Last 3 Months or Most Recently Relevant to Health Maintenance Insurance [facility] MEDICARE [facility] Address: [address] [address] [place] [address] [facility] MEDICARE [facility] Address: [address] [address] [place] [address] [facility] MEDICARE [facility] Address: [address] [address] [place] [address] Advance Directives For more information, please contact: [phone] Documents on File Type Date Recorded Patient Freelance Photographer Expl anation ADVANCE DIRECTIVE 01/10/2019 10:53 AM [facility] er [facility] * Full Code (Latest Code Status on File) Date Activated Date Inactivated Comments 06/23/2020 6:12 PM 06/25/2020 8:07 PM Care Teams Recycling Operator Relationship Specialty Start Date End Date Zackary Grider DO PCP - General Internal Medicine 10/13/23
--- OUTSIDE RECORDS SUMMARY | 2025-01-02 12:45 | XMS_ITS | Encounter Summary ---
Author Organization [facility] Address [address] [facility] [address] [place] [address] Care Team Providers Care Captain Airline Pilot Name Role Phone Hitesh Esparza MD Primary Care Provider [phone] Maurice Johnson PhD Unavailable [phone] Charanjit Yanes MD Primary Care Provider [phone] Zackary Grider DO Primary Care Provider [phone] Encounter Details Date Type Department Care Team (Late st Contact Info) Description 06/13/2016 Orders Only [facility] ProviderMarie MD [address] [place] [address] Social History Tobacco Use Types Packs/Day Years Used Date Smoking Tobacco: Former Alcohol Use Standard Drinks/Week Comments Yes 0 (1 standard drink = 0.6 oz pur e alcohol) Sex and Gender Information Value Date Recorded Sex Assigned at Not on file Legal Sex Male 3:05 AM TECHNICAL INTERN Gender Identity Male 02/03/2021 8:53 AM TECHNICAL INTERN Sexual Orientation Straight 08/05/2018 2: 16 PM [...] on filedocumented in this encounter Care Teams Captain Airline Pilot Relationship Specialty Start Date End Date Hitesh Esparza MD [address] [place] [address] PCP - General 03/23/15 02/16/20 Charanjit Yanes MD [address] [facility] [address] [facility] [address] [place] [address] PCP - General Internal Medicine 02/17/20 10/12/23 Zackary Grider DO [address] [facility] [address] [place] [address] PCP - General Internal Medicine 10/13/23 Maurice Johnson, PhD [address] [address] Referring Physician Speech Therapy 10/25/17 02/16/20 documented as of this encounter
--- OUTSIDE RECORDS SUMMARY | 2025-01-02 12:45 | XMS_ITS | Encounter Summary ---
Author Organization [facility] Address [address] [place] [address] Care Team Providers Care Farmworker Rice Name Role Phone Unavailable Primary Care Provider Unavailabl e Encounter Details Date Type Department Care Team (Late st Contact Info) Description 10/24/2023 Telephone [facility] Spine and Pain Management [place] [address] [facility] [address] [facility] [address] [place] [address] Ilia Barrett MD [address] [facility] [address] [place] [address] Social History Tobacco Use Types Packs/Day [...]
--- OUTSIDE RECORDS SUMMARY | 2025-01-02 12:45 | XMS_ITS | Encounter Summary ---
Author Organization [facility] Health Address [address] [place] [address] Care Team Providers Care Sharepoint Solutions Developer Name Role Phone Hitesh Esparza MD Primary Care Provider [phone] Anne Lawson RN Unavailable [phone] Encounter Details Date Type Department Care Team (Late st Contact Info) Description 07/19/2013 Therapy Visit EXTERNAL NON-[facility] DEPT Unknown, Provider Social History Tobacco Use Types Packs/Day Years Used Date Smoking Tobacco: Former Cigarettes 2 16 0 02/21/1976 - 02/21/1992 Smokeless Tobacco: Never Alcohol Use Standard Drinks/Week Comments Yes 11.7 (1 standard drink = 0.6 oz pure alcohol) Sex and Gender Information Value Date Recorded Sex Assigned at Not on file Legal Sex Male 3:18 PM API PRODUCT MANAGER Gender Identity Not on file Sexual Orientation Not on file 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
== END 2025-01-02 11:43 | disposition home or self-care (01) ==
PROVIDERS: PCP Internal Medicine; Visit Provider Internal Medicine
DX: R10.9 Unspecified abdominal pain (principal)
CPT/HCPCS: 74018

== ENCOUNTER 2025-02-04 00:17 | Day surgery (SDC) | payer MEDICARE, SELFPAY ==
[2025-01-30 15:29] VITALS: BMI 27.8
--- NOTE | 2025-01-30 15:58 | PC.NURSE ---
[facility] has started construction of its new state of the art ER which will open Spring 2026. With this, we anticipate parking may be a challenge for some our surgical patients and families. Parking spaces are limited but are available for all Surgical, obstetrics, and ER patients sharing this lot. If you arrive and find you are having a hard time finding a parking space, please note that we understand the challenges, please drive around the hospital and park near Hospital Entrance 1. When you enter this entrance, you can ask a volunteer to direct or take you back to the surgical waiting area to check in. We appreciate everyone?s understanding of these expected challenges while we build for your future. Report to the Outpatient Waiting Room, entrance under the green pavilion located off [address], at time ___10:00AM____ on date ___02/04/25____. Planned Procedure Time: _11:00AM .? Time changes happen often and if your time is changed the preop area will call you the afternoon before. - You and your visitor will be asked to self-screen and do not enter if you have any COVID symptoms. Please call surgeon if you need to reschedule. - A mask is optional within the hospital at this time. MAY HAVE LIGHT BREAKFAST, NOTHING BY MOUTH STARTING 2 HOURS PRIOR TO PROCEDURE (9:00AM). MAY HAVE SIPS OF WATER FOR MEDICATION. Take only the following medications with a SIP of water on the morning of surgery: MORNING MEDS DO NOT STOP ANY OF YOUR OTHER PRESCRIPTION MEDICATIONS PRIOR TO SURGERY EXCEPT THE FOLLOWING Hold all vitamins and supplements for 3 days per anesthesiologist. Medications to discontinue per physician ____HOLD ASPIRIN 7 DAYS PRE-OP PER DR DASH. OFFICE AWARE THAT PT TOOK LAST DOSE 01/28/25 Date to take last dose Please no make-up, nail danish, hairspray, perfume, deodorant, or body powder the day of surgery.? No jewelry (including any body piercings) or valuables the day of surgery, leave them at home.? Please take a shower or bath the night before, or the morning of, surgery with an antibacterial soap.? Wear comfortable, loose fitting clothing. SHOWER OR BATH NIGHT BEFORE & MORNING OF PROCEDURE PER DR DASH. - Jewelry must be removed prior to entering the operating room.? Rings and piercings that are not removed may be cut off. - The hospital will not accept responsibility for valuables.? - Please leave all valuables, including medications, at home the day of surgery. If you are going home after surgery, a licensed bus van driver must drive you home.? - NO public transportation without another adult if you receive anesthesia. - We recommend that an adult stay with you for 24 hours following discharge. - We also recommend that you do not drive, make important decision, drink alcoholic beverages, or take any drugs that were not prescribed by your health care provider for at least 24 hours after your discharge time. Follow any additional instructions given to you from your surgeon. NO DRIVING FOR 24 HRS POST-OP PER DR DASH. Telephone instructions given to ___PATIENT'S , RACH and asked if any additional questions and then verbalized understanding. Patient advised to call surgeon office or pre surgery nurse liaison [phone] if any additional questions.
--- NOTE | ~2025-02-04 | XR_ITS ---
EXAM/PROCEDURE: XR fluoroscopy no charge HISTORY: BILATERAL CELIAC PLEXUS/SPLANCHINC NERVE BLOCKS COMPARISON: None available. TECHNIQUE: Fluoroscopic images for pain service. Fluoroscopy time: 1 minute 20.6 seconds DAP: 12.710 Mckee per square centimeter IMPRESSION: Fluoroscopically assisted procedure. No radiologist present. See operative/procedure notes for complete evaluation. Reviewed, dictated and finalized at location A. RACT MANAGER IMPRESSION: Fluoroscopically assisted procedure. No radiologist present. See operative/proc edure notes for complete evaluation.
--- OUTSIDE RECORDS SUMMARY | 2025-02-04 00:20 | XMS_ITS | Clinical Summary ---
Author Organization [facility] Address [address] [place] [address] Care Team Providers Care Margarine Maker Name Role Phone Hitesh Esparza MD Primary Care Provider [phone] Anne Lawson RN Unavailable [phone] Source Comments [facility],non-owned Affiliates and Associated Physician Practices is amultiple site organization consisting of ambulatory clinics and hospital sitesin [place], [place], [place] and [place]. This disclosure is being madepursuant to the Care Everywhere program and may not contain all information available regarding this patient. 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 03/21/2018 [id number] / / [id number] Si- Bone Fusion Geo 7.0mm X 50mm Implanted:Qty: 1 on 07/12/2013 by Shlomo Donato MD at [facility] 03/22/2018 [id number] / / [id number] Si-Bone Ifuse Implant System 7.0mm X 50mm Implanted:Qty: 1 on 07/12/2013 by Shlomo Donato MD at [facility] 03/21/2018 [id number] / / [id number] Procedures Procedure Name Priority Date/Time Associated Diagnosis Comments BASIC METABOLIC PANEL (CALCIUM TOTAL) Routine 12/24/2016 3:52 AM CDT from Last 3 Months or Most Recently Relevant to Health Maintenance Results * BASIC METABOLIC PANEL (CALCIUM TOTAL) (12/24/2016 3:52 AM CDT) BUN 19 7 - 26 mg/dL [facility] Creatinine 0.9 0.6 - 1.2 mg/dL [facility] Sodium 139 136 - 145 mmol/L [facility] Potassium 4.1 3.5 - 4.5 mmol/L [facility] Chloride 103 98 - 107 mmol/L [facility] CO2 27 22 - 29 mmol/L [facility] Glucose 102 70 - 115 mg/dL [facility] Calcium 9.7 8.4 - 10.2 mg/dL [facility] Anion Gap 13 8 - 18 [facility] BUN/Creatinine Ratio 21 7 - 23 [facility] Osmolality Calculated 290 270 - 300 mOsm/kg [facility] eGFR >60 >60 mL/min/1.7 3 m2 [facility] Blood specimen (specimen) BLOOD SPECIMEN / Unknown 12/24/2016 3:52 AM CDT 12/24/2016 4:02 AM CDT us Peg Maher MD LAB - CHEMISTRY ORDERABLES Fin al Result [facility] [address] [phone] from Last 3 Months or Most Recently Relevant to Health Maintenance Insurance MEDICARE [facility] MEDICARE Advance Directives * Full Code (Latest Code Status on File) Date Activated Date Inactivated Comments 07/16/2013 8:08 AM 07/17/2013 10:47 AM * Full Code Date Activated Date Inactivated Comments 07/12/2013 12:13 PM 07/16/2013 8:08 AM Care Teams Margarine Maker Relationship Specialty Start Date End Date Hitesh Esparza MD [address] [place] [address] PCP - General Family Medicine 02/26/13 Anne Lawson RN Community Arts Worker 07/16/13
--- OUTSIDE RECORDS SUMMARY | 2025-02-04 00:20 | XMS_ITS | Encounter Summary ---
Author Organization [facility] Health Address [address] [place] [address] Care Team Providers Care Medical Administrative Name Role Phone Hitesh Esparza MD Primary Care Provider [phone] Anne Lawson RN Unavailable [phone] Encounter Details Date Type Department Care Team (Late st Contact Info) Description 07/19/2013 Therapy Visit EXTERNAL NON-[facility] DEPT Unknown, Provider Social History Tobacco Use Types Packs/Day Years Used Date Smoking Tobacco: Former Cigarettes 2 16 0 02/21/1976 - 02/21/1992 Smokeless Tobacco: Never Alcohol Use Standard Drinks/Week Comments Yes 11.7 (1 standard drink = 0.6 oz pure alcohol) Sex and Gender Information Value Date Recorded Sex Assigned at Not on file 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
--- OUTSIDE RECORDS SUMMARY | 2025-02-04 00:21 | XMS_ITS | Encounter Summary ---
Author Organization [facility] Healthcare Address [address] [place] [address] Care Team Providers Care Commercial Green Building Designer Name Role Phone Charanjit Yanes MD Primary Care Provider [phone] Zackary Grider DO Primary Care Provider [phone] Encounter Details Date Type Department Care Team (Late st Contact Info) Description 06/22/2022 Telephone [facility] [place] [facility] [address] [facility] Advanced Medicine [address] [place] [address] Ilia Barrett MD PhD [address] [place] [address] Social History Tobacco Use Types Packs/Day Years [...] often do you attend chur ch or church services? Never 06/24/2020 Do you belong to any clubs o r organizations such as alevism groups, unions, fraternal or athletic groups, or [...] on file Legal Sex Male 3:05 AM NURSING PROGRAM COORDINATOR Gender Identity Male 02/03/2021 8:53 AM NURSING PROGRAM COORDINATOR Sexual Orientation Straight 08/05/2018 2: 16 PM [...] on filedocumented in this encounter Care Teams Commercial Green Building Designer Relationship Specialty Start Date End Date Charanjit Yanes MD [address] [facility] [address] [place] [address] PCP - General Internal Medicine 02/17/20 10/12/23 Zackary Grider DO [address] [place] [address] [place] [address] PCP - General Internal Medicine 10/13/23 documented as of this encounter
--- OUTSIDE RECORDS SUMMARY | 2025-02-04 00:21 | XMS_ITS | Encounter Summary ---
Author Organization [facility] Address [address] [place] [address] Care Team Providers Care Head Boys Golf Coach Name Role Phone Unavailable Primary Care Provider Unavailabl e Encounter Details Date Type Department Care Team (Late st Contact Info) Description 10/24/2023 Telephone [facility] Spine and Pain Management [address] [place] [address] Ilia Barrett MD [address] [facility] [address] [facility] [address] [place] [address] Social History Tobacco Use Types [...]
--- OUTSIDE RECORDS SUMMARY | 2025-02-04 00:21 | XMS_ITS | Encounter Summary ---
Author Organization [facility] Healthcare Address [address] [place] [address] Care Team Providers Care Facilities Project Manager Name Role Phone Charanjit Yanes MD Primary Care Provider [phone] Zackary Grider DO Primary Care Provider [phone] Reason for Visit * Reason Onset Date Comments question 02/01/2022 Encounter Details Date Type Department Care Team (Late st Contact Info) Description 02/01/2022 Telephone [facility] at the [place] [facility] [address] [facility] Advanced Medicine [address] [place] [address] Ilia Barrett MD PhD [address] [facility] [address] [facility] [address] [place] [address] question Social History Tobacco Use Types Packs/Day [...] often do you attend chur ch or pentecostal services? Never 06/24/2020 Do you belong to any clubs o r organizations such as yazdanism groups, unions, fraternal or athletic groups, or [...] on file Legal Sex Male 3:05 AM AUTOMOTIVE SHOP FOREMAN Gender Identity Male 02/03/2021 8:53 AM AUTOMOTIVE SHOP FOREMAN Sexual Orientation Straight 08/05/2018 2: 16 PM [...] on filedocumented in this encounter Care Teams Facilities Project Manager Relationship Specialty Start Date End Date Charanjit Yanes MD [address] [place] [address] [place] [address] PCP - General Internal Medicine 02/17/20 10/12/23 Zackary Grider DO [address] [place] [address] [place] [address] PCP - General Internal Medicine 10/13/23 documented as of this encounter
--- OUTSIDE RECORDS SUMMARY | 2025-02-04 00:21 | XMS_ITS | Encounter Summary ---
Author Organization [facility] Health Address [address] [place] [address] Care Team Providers Care Blood Collector Name Role Phone Hitesh Esparza MD Primary Care Provider Anne Lawson RN Unavailable [phone] Encounter Details Date Type Department Care Team (Late st Contact Info) Description 04/29/2013 Therapy Visit EXTERNAL NON-[facility] [place] [address] [place] [address] Social History Tobacco Use Types Packs/Day Years Used Date Smoking Tobacco: Former Smokeless Tobacco: Never Alcohol Use Standard Drinks/Week Comments Yes 0 (1 standard drink = 0.6 oz pur e alcohol) 2 drinks per day Sex and Gender Information Value Date Recorded Sex Assigned at Not on file 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 Gender Identity Not on file Sexual Orientation Not on file 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
--- OUTSIDE RECORDS SUMMARY | 2025-02-04 00:21 | XMS_ITS | Clinical Summary ---
Author Organization [facility] [place] Address [address] [address] Care Team Providers Care Cnmt Name Role Phone Unavailable Primary Care Provider Unavailabl e Allergies Active Allergy Reactions Criticality Noted Date Comments Maninder Inhibitors Angioedema High 01/10/2019 Clotrimazole Rash Medium 02/26/2013 Iodinated Contrast Media Angioedema High 01/17/2017 Omnipaque, IV contrast 12/20/16 at [facility] acute angioedema during CT scan Iohexol Angioedema [...] mg by mouth 2 times daily. Active xqnswfyr64-oetn -Lmfolate-algal 27 mg iron-1.13 mg-581.92 mg Capsule [...] puncture headache 10/31/2023 Post laminectomy syndrome 09/05/2023 Immunizations Immunization Administration Dates Next Due (ADACEL/BOOSTRIX)(10 [...] MONTHS 06/19/2017 12/20/2016 INFLUENZA VACCINE (#1) 2024 0, 12/03/2018, 10/18/2017, Additional history exists DTAP/TDAP/TD VACCINES (3 - T d or Tdap) 09/09/2027 09/08/2017, 09/07/2017 ZOSTER VACCINE Completed 11/23/2017, 08/21, 09/11/2017, Additional history exists PNEUMOCOCCAL VACCINE 50+ YEARS Completed 1 03/20/2018, 09/08/2017, 09/07/2017, Additional history exists Medical Devices Implanted Type Area Train Crew Member Device Identifier Shelf Expiration Date Model / Serial / Lot Cage Cage Throat Description:r/t radiation; t hroat surgery with titanium to neck Hip Hip Description:and SI joint has been fused on the left Lead Vectris 1x8 60cm Trial [facility] [id number] - [id number] Implanted:Qty: 1 on 09/28/2023 by Ilia Barrett MD at [facility] Lead N/A: Spine Lumbar MEDTRONIC- NEUROLOGIC TECH 06/29/2027 [id number] / / [id number] Lead Vectris 1x8 60cm Trial [facility] [id number] - [id number] Implanted:Qty: 1 on 09/28/2023 by Ilia Barrett MD at [facility] Lead N/A: Spine Lumbar [employer]- NEUROLOGIC TECH 08/14/2027 [id number] / / [id number] Description:no charge item p art of kit/bundle per rep Lead Surescan Vectris Mri [id number] - [id number] Implanted:Qty: 1 on 10/20/2023 by Ilia Barrett MD at [facility] Lead N/A: Back [employer]- NEUROLOGIC TECH 03/21/2027 [id number] / / [id number] Lead Surescan Vectris Mri [id number] - [id number] Implanted:Qty: 1 on 10/20/2023 by Ilia Barrett MD at [facility] Lead N/A: Back [employer]- NEUROLOGIC TECH 04/20/2027 [id number] / / [id number] Emerado Injex Bi-Wing [id number] - [id number] Implanted:Qty: 1 on 10/20/2023 by Ilia Barertt MD at [facility] Other N/A: Back [employer]- NEUROLOGIC TECH 09/04/2027 [id number] / / [id number] Cervical Fusion Kit Intellis Trial Lead 1 Implanted:Qty: 1 on 09/28/2023 by Ilia Barrett MD at [facility] N/A: Spine Lumbar [employer] INC INTELTRIAL 1 / / Implantable Pulse Generator Implanted:Qty: 1 on 10/20/2023 by Ilia Barrett MD at [facility] N/A: Back MEDTRON[employer] INC 08/17/2024 [id number] / / [id number] Insurance RX [employer] RX Member Subscriber Plan / Payer (Ef fective 2023-Present) Name:Daryl Hay Relation to Subscriber:Self Name:Daryl Hay Payer ID:Not on file Group ID:[id number] Type:RX Medicare Part D Address: [place] [facility] [place] PL[place] (INTERNAL) [facility] Advance Directives For more information, please contact: [phone] * Full Code (Latest Code Status on File) Date Activated Date Inactivated Comments 10/20/2023 1:49 PM 10/20/2023 8:08 PM * Full Code Date Activated Date Inactivated Comments 10/20/2023 11:05 AM 10/20/2023 1:49 PM
--- OUTSIDE RECORDS SUMMARY | 2025-02-04 00:21 | XMS_ITS | Clinical Summary ---
Author Organization [facility] [address] Address [address] [place] [address] Care Team Providers Care Community Mental Health Social Worker Name Role Phone Zackary Grider DO Primary Care Provider [phone] Allergies Active Allergy Reactions Criticality Noted Date Comments Maninder Inhibitors Angioedema High 05/29/2020 Clotrimazole Rash Medium 02/26/2013 Iodinated Contrast Media Angioedema High 01/17/2017 Omnipaque, IV contrast 12/20/16 at [facility] acute angioedema during CT scan Lisinopril Angioedema High 01/10/2019 Niacin Rash Medium 02/26/2013 Medications traZODone (DESYREL) 100 mg tablet take 1 tablet by oral route every day 0 0 5 Active Additional Information Patient taking differently:100 mgoral Nightly, Indications: insomnia associated with depression, Reported on 01/09/2025 albuterol HFA (PROAIR HFA) 90 mcg/actuation inhaler inhale 2 puff by inhalation route every 4 - 6 hours as needed 0 Inhaler 0 5 Active omeprazole (PriLOSEC) 40 mg capsuleIndication s:gerd [...] mouth daily before dinner Takes at 1500. 0 Active acetaminophen (TYLENOL) 500 mg tablet Take 2 tablets (1,000 mg total) by mouth 3 (three) times a day 1 Active FIBER, DEXTRIN, ORAL Take by mouth Active zmqzurhp75-ivfq-S mfolate-algal 27 mg iron-1.13 mg-581.92 mg capsule Take by mouth Active cetirizine HCl (CETIRIZINE ORAL) Take 10 mg by mouth daily Zrytec-D 5-120mg Active gabapentin (NEURONTIN) 300 mg capsule Take 3 capsules (900 mg total) by mouth 3 (three) times a day 3 Active cycloSPORINE (RESTASIS) 0.05 % ophthalmic emulsion Administer 1 drop into both eyes 2 (two) times a day Active aspirin 81 mg enteric coated tablet Take 1 tablet (81 mg total) by mouth daily Active baclofen (LIORESAL) 5 mg tabletIndications :Muscle Spasticity of Spinal Origin Take 1 tablet (5 mg total) by mouth 3 (three) times a day 270 tablet 2 3 Active nortriptyline (PAMELOR) 25 mg capsuleIndication s:Lumbar radiculopathy Take 1 capsule (25 mg total) by mouth nightly 90 capsule 3 4 Active Additional Information Patient taking differently: 50 mgoral Nightly, Reported on 01/09/2025 isosorbide mononitrate ER (IMDUR) 60 mg 24 hr tablet Take 0.5 tablets (30 mg total) by mouth daily 45 tablet 3 5 Active fenofibrate (TRICOR) 54 mg tablet TAKE 1 TABLET BY MOUTH DAILY 90 tablet 2 5 Active metoprolol tartrate (LOPRESSOR) 25 mg immediate release tablet Take 0.5 tablets (12.5 mg total) by mouth 2 (two) times a day Active losartan (COZAAR) 25 mg tabletIndications :Labile hypertension Take 1 tablet (25 mg total) by mouth daily 90 tablet 3 5 026 Active atorvastatin (LIPITOR) 80 mg tablet Take 1 tablet (80 mg total) by mouth daily 90 tablet 2 5 Active ezetimibe (ZETIA) 10 mg tablet TAKE 1 TABLET BY MOUTH EVERY DAY 90 tablet 2 5 Active Linzess 145 mcg capsule Take by mouth daily 5 Active polyethylene glycol (MIRALAX) 17 gram/dose bulk powder TAKE 17G BY MOUTH TWICE A DAY 5 Active Active Problems Problem Noted Date Diagnosed [...] (04/27/2020): Added automatically from request for surgery [id number] Pain of left lower extremity 03/27/2020 Left hip pain 03/27/2020 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 No diagnosis on [place] I 03/24/2020 Other chronic pain 03/24/2020 Anxiety disorder 03/24/2020 Functional hemiparesis 01/27/2020 Assessment & Plan (02/27/2023 7:26 AM GUSSET STITCHER): There was no evidence of a primary [...] Anemia 05/25/2017 Coronary artery disease invo lving tatitlek coronary artery of tatitlek heart without angina pectoris 01/17/2017 Allergic to IV contrast 01/17/2017 Edema of larynx 10/26/2016 Preoperative state 06/21/2016 Overview (07/15/2016): Preoperative cardiovascular examination History of malignant neoplasm of larynx 03/25/19 16 Dysphonia 03/25/2015 Mixed diabetic hyperlipidemi a associated with type 2 diabetes mellitus ([facility]) 03/23/2015 Overview (05/27/2016): DM type 2 with [...] Encounters Date Type Department Care Team Description 01/09/2025 3:00 PM GUSSET STITCHER [place] [facility] [address] [facility] [address] [place] [address] [place] [address] Terrence Hernandez MD PhD Functional hemiparesis (HCC) (Primary Dx); Other chronic pain; Balance problems; Abnormal MRI 12/18/2024 1:20 PM CDT [place] [facility] [place] [facility] [address] [facility] [address] [place] [address] Rubina Gale PA History of malignant neoplasm of larynx (Primary Dx); Bilateral impacted cerumen from Last 3 Months Immunizations Immunization Administration [...] History Date Comments Asthma Asthma; Comments : [facility] 01/13/2015 - Malignant neoplasm of larynx Can cer, throat; Comments: [facility] 01/13/2015 - Sleep apnea Sleep apnea; Com ments: [facility] 01/13/2015 - GERD (gastroesophageal reflux disease) Arthritis [...] Cigarettes Q uit: 1960 Smokeless Tobacco: Never Tobacco Cessation:Counseling Given: Not Answered Alcohol Use Standard Drinks/Week Comments Yes 15 [...] often do you attend chur ch or amish services? Never 06/24/2020 Do you belong to [...] place to sleep or slept in a fci (including now)? No 06/24/2020 Sex and Gender Information Value Date Recorded Sex Assigned at Not on file Legal Sex Male 3:05 AM GUSSET STITCHER Gender Identity Male 02/03/2021 8:53 AM GUSSET STITCHER Sexual Orientation Straight 08/05/2018 2: 16 PM CDT Occupation Industry Job Start Date Job End Date retired Not on file Not on file Not on file Last Filed Vital Signs Vital Sign Reading Time Taken Comments Blood Pressure 119/72 01/09/2025 2:31 PM GUSSET STITCHER Pulse 59 01/09/2025 2:31 PM GUSSET STITCHER Temperature 36.2 C (97.1 F) 06/28/2023 11:42 AM CDT Respiratory Rate 18 06/28/2023 11:42 AM CDT Oxygen Saturation 97% 10/17/2024 10:59 AM CDT Inhaled Oxygen Concentration - - Weight 96.4 kg (212 lb 9.6 oz) 01/09/2025 2:31 P M GUSSET STITCHER Height 182.9 cm (6') 01/09/2025 2:31 PM GUSSET STITCHER Body Mass Index 28.83 01/09/2025 2:31 PM GUSSET STITCHER Plan of Treatment Health Maintenance Due Date [...] Dilated Eye Exam 12/01/2023 11/30/2022 Covid-19 Vaccine (5 - 2024-2 6 season) 2024 06/04/2021, 12/17/2020, 04/28/2020, Additional [...] as needed Medical Devices Implanted Type Area Compounding And Finishing Supervisor Device Identifier Shelf Expiration Date Model / Serial / Lot Titanium Si Joint Sacrum Cage & Screws In Ncek Neck [employer] [id number] 58mm Limit 4 Hole Hip G Hemisphere Offset Shell Acetabular - [id number] Implanted:Qty: 1 on 06/23/2020 by Zach Sena MD at [facility] Left: Hip [employer] [id number] 07/27/2029 [id number] / / [id number] Edu[employer] [id number] 40mm Lumen Hip G Liner Acetabular Longevity Sterile Latex Free - [id number] Implanted:Qty: 1 on 06/23/2020 by Zach Sena MD at [facility] Left: Hip [employer] [id number] 11/20/[id number] / / [id number] Edu[employer] [id number] Taperloc 154mm Type 1 Press Fit Reduce Hip 133d 17 High Offset - [id number] Implanted:Qty: 1 on 06/23/2020 by Zach Sena MD at [facility] Left: Hip [employer] [id number] 04/24/2029 [id number] / / [id number] Edu[employer] 650-1067 G7 Type 1 Hip +3mm Offset Taper Sleeve Centering Titanium Biolox - [id number] Implanted:Qty: 1 on 06/23/2020 by Zach Sena MD at [facility] Left: Hip [employer] Inc 07/04/2029 [id number] / / [id number] Edu[employer] [id number] G7 40mm Hip Head Femoral Biolox Delta Biolox Option - [id number] Implanted:Qty: 1 on 06/23/2020 by Zach Sena MD at [facility] Left: Hip [employer] 12/10/2029 [id number] / / [id number] Procedures Procedure Name Priority Date/Time Associated Diagnosis Comments POCT LIPID PANEL Routine 10/17/2024 10:5 2 AM CDT Coronary artery disease involving tatitlek coronary artery of tatitlek heart without angina pectoris BASIC METABOLIC PANEL [...] - 06/16/2020 5:07 AM CDT Performed at: [facility] [address] [id number] Solutions Specialist: Kurt Ly PhD, Phone: [phone] Tucker Rai MD LAB BLOOD ORDERABLES Fin al Result [facility] - 01 from Last 3 Months or Most Recently Relevant to Health Maintenance Insurance [facility] MEDICARE UHC MEDICARE ADVANTAGE UHC MEDICARE ADVANTAGE Advance Directives For more information, please contact: [phone] Documents on File Type Date Recorded Patient Signal Engineer Expl anation ADVANCE DIRECTIVE 01/10/2019 10:53 AM Pow er of Life Underwriter-Medical * Full Code (Latest Code Status on File) Date Activated Date Inactivated Comments 06/23/2020 6:12 PM 06/25/2020 8:07 PM Care Teams Community Mental Health Social Worker Relationship Specialty Start Date End Date Zackary Grider DO PCP - General Internal Medicine 10/13/23
--- OUTSIDE RECORDS SUMMARY | 2025-02-04 00:21 | XMS_ITS | Encounter Summary ---
Author Organization [facility] Address [address] [facility] [address] [place] [id number] Care Team Providers Care Electric Sealing Machine Operator Name Role Phone Hitesh Esparza MD Primary Care Provider [phone] Maurice Johnson PhD Unavailable [phone] Charanjit Yanes MD Primary Care Provider [phone] Zackary Grider DO Primary Care Provider [phone] Encounter Details Date Type Department Care Team (Late st Contact Info) Description 06/13/2016 Orders Only [facility] ProviderMarie MD [address] [place] [id number] Social History Tobacco Use Types Packs/Day Years Used Date Smoking Tobacco: Former Alcohol Use Standard Drinks/Week Comments Yes 0 (1 standard drink = 0.6 oz pur e alcohol) Sex and Gender Information Value Date Recorded Sex Assigned at Not on file Legal Sex Male 3:05 AM CUSTODIAN ATHLET[employer] EQUIPMENT Gender Identity Male 02/03/2021 8:53 AM CUSTODIAN ATHLET[employer] EQUIPMENT Sexual Orientation Straight 08/05/2018 2: 16 PM [...] on filedocumented in this encounter Care Teams Electric Sealing Machine Operator Relationship Specialty Start Date End Date Hitesh Esparza MD [address] [place] [id number] PCP - General 03/23/15 02/16/20 Charanjit Yanes MD [address] [facility] [address] [facility] [address] [place] [address] PCP - General Internal Medicine 02/17/20 10/12/23 Zackary Grider DO [address] [facility] [address] [place] [address] PCP - General Internal Medicine 10/13/23 Maurice Johnson, PhD [address] [address] Referring Physician Speech Therapy 10/25/17 02/16/20 documented as of this encounter
--- OUTSIDE RECORDS SUMMARY | 2025-02-04 00:21 | XMS_ITS | Encounter Summary ---
Author Organization [facility] Address [address] [place] [address] Care Team Providers Care Carton Forming Machine Operator Name Role Phone Charanjit Yanes MD Primary Care Provider [phone] Zackary Grider DO Primary Care Provider [phone] Encounter Details Date Type Department Care Team (Late st Contact Info) Description 02/28/2020 Telephone [facility] Radiology [address] [place] [address] Terrence Hernandez MD PhD [address] [place], [place] [id number] Social History Tobacco Use Types Packs/Day Years Used Date Smoking Tobacco: Former Cigarettes 2 25 Smokeless Tobacco: Never Alcohol Use Standard Drinks/Week Comments Yes 15 (1 standard drink = 0.6 oz pu re alcohol) Sex and Gender Information Value Date Recorded Sex Assigned at Not on file Legal Sex Male 3:05 AM DIE MACHINE OPERATOR Gender Identity Male 02/03/2021 8:53 AM DIE MACHINE OPERATOR Sexual Orientation Straight 08/05/2018 2: 16 PM CDT Occupation Industry Job Start Date Job End Date retired Not on file Not on file Not on file documented as of this encounter Plan of Treatment Not on file documented as of this encounter Visit Diagnoses Not on filedocumented in this encounter Care Teams Carton Forming Machine Operator Relationship Specialty Start Date End Date Charanjit Yanes MD [address] [address] PCP - General Internal Medicine 02/17/20 10/12/23 Zackary Grider DO [address] [address] PCP - General Internal Medicine 10/13/23 documented as of this encounter
--- NOTE | 2025-02-04 09:43 | WPDHPUPDATE1 ---
History and Physical Update Update Date/Time: 02/04/25 09:43 History and Physical has been reviewed, including an updated exam of the patient. There are NO changes in the patient's condition. Risks, benefits, and alternatives have been discussed and questions answered. Patient agrees to proceed with procedure.
--- NOTE | 2025-02-04 09:44 | P.OP_ITS ---
Procedure Note - Detailed Date of Procedure 02/04/25 Pre-op Diagnosis unspec abdominal pain Post-op Diagnosis Same Procedure Performed Celiac Sympathetic Plexus/Bilateral Sphlanchnic Nerve Blocks under Fluoroscopic Guidance and with Contrast Control at L1. Surgeon Humberto Allan MD Anesthesia Local Description of Procedure INFORMED CONSENT: Risks, benefits and alternatives to the procedure were discussed in detail with the patient who expressed explicit understanding and consent to proceed. Patient was informed verbally and in written form regarding the risks associated with the procedure including the low risk of serious infection, bleeding/bruising, hypotension/cardiovascular collapse, allergic reaction, nerve or organ injury, paralysis, procedural site pain or discomfort, worsening pain and/or mobility, failure to treat and/or disfigurement. The patient expressed explicit understanding and consent to proceed. All materials required for the procedure were available prior to procedure start. Site and side was marked prior to procedure and confirmed in the presence of the patient. PROCEDURE IN DETAIL: The patient was brought to the procedural suite and placed in the prone position. Patient was made comfortable with use of pillows under the head/chest, hips and ankles. Skin overlying the injection site was prepared broadly with ChloraPrep applicator and draped in a sterile manner. Aseptic technique was employed throughout. The endplates of the L1 vertebral body were aligned in the AP view Local anesthesia was established by infiltration with approximately 5 mL of 0.5% lidocaine via a 1-1/2 inch 27-gauge needle. An additional 5 ml of PF 0.5% lidocaine was delivered via a 22-gauge, 3.5 inch Quincke spinal needle to anesthetize the deeper tissues down to the lateral vertebral body, after negative aspiration. A 22-gauge 5-inch Quincke spinal nee dle was advanced medially and anteriorly until the needle tip contacted periosteum on the ipsilateral border of the vertebral body. Needle was repositioned until walking-off anteromedially and advancing until the needle tip was positioned 2-3 millimeters ventral to the anterior border of the L1 vertebral body in the lateral view. In the lateral view, 1 mL of Multihance contrast medium was injected after negative aspiration for CSF, blood or other bodily fluid, showing appropriate linear spread in the ventrolateral prevertebral space without evidence of intravascular, intrathecal, epidural or f oraminal spread of contrast. Appropriate amorphous spread of contrast was confirmed in the AP view. Digital subtraction imaging was used to confirm lack of intravascular spread in the AP view with an additional 1 ml of the same IV contrast. A 10mL solution containing 5 mg of dexamethasonein 0.5% PF Bupivacaine was injected after negative repeat intermittent aspiration. Appropriate spread of the injectate was confirmed with washout of previously injected contrast. No parasthesias were elicited. Needle was removed completely intact without difficulty. The same procedure was repeated for all intended levels/structures on the contralateral side with identical methodology modified to compensate for contralateral location, with similar results and no evidence of complication. Patient tolerated this well. Images were saved and documented in the patient chart. Patient's skin was cleaned and sterile bandage applied. The patient tolerated the procedure well. The patient was transported to the recovery area in stable condition where they were observed for an appropriate amount of time prior to discharge, without evidence of complication. The patient was instructed to avoid excessive activity for the next 48 hours, including climbing and frequent use of stairs. Showers only for 48 hours. They were instructed not to drive or operate heavy machinery for 24 hours. They are to monitor for severe headaches, fevers, chills, night sweats, erythema/swelling at the site or any other signs of infection, bleeding/bruising, bowel or bladder changes as well as new pain, weakness or numbness in the upper or lower extremity. Should they notice these changes, they are instructed to call our office immediately or report directly to the nearest Emergency Department if no answer or if after posted office hours. COMMENTS: None. CONTRAST WASTED: 11.0mL Multihance. Complications None Condition Stable Disposition Same day [facility] Billing Surgery - Charge Forward: Surgery Billing
[2025-02-04 10:30] VITALS: BP 130/76; PULSE 54; RESP 16; TEMP 36.2; O2SAT 99
[2025-02-04 10:50] VITALS: BP 159/93; PULSE 55; RESP 16; O2SAT 96
[2025-02-04] MEDS: DEXAMETHASONE SODIUM PHOSP/PF 10 MG/ML 1 ML VIAL INFILTRATE (10:56)
[2025-02-04] MEDS: BUPivacaine HCL 0.5% 10 ML AMP INFILTRATE (10:56)
[2025-02-04 10:58] VITALS: BP 159/93; PULSE 56; RESP 16; O2SAT 95
[2025-02-04 11:06] VITALS: BP 160/95; PULSE 56; RESP 16; O2SAT 97
[2025-02-04 11:10] VITALS: BP 131/82; PULSE 52; RESP 16; O2SAT 97
== END 2025-02-04 11:55 | disposition home or self-care (01) ==
PROVIDERS: PCP Internal Medicine; Visit Provider Anesthesiology Pain Medicine
PROC: (CPT 64530; principal; 2025-02-04 11:00)
DX: R10.9 Unspecified abdominal pain (principal); G89.29 Other chronic pain
CPT/HCPCS: 64530; 99199; Q9965